=== PATIENT | male | born 1960 | race Caucasian/White ===

== ENCOUNTER 2023-07-29 08:59 | Outpatient (OUT) | payer OTHER, SELFPAY ==
--- NOTE | 2023-07-29 09:06 | ECG_ITS ---
[facility] Test Date: 2023-07-29 Pat Name: CORTNEY MORTON Department: Room: - Gender: Male [employer]: : 1960 Requested By: MOON HUNTER Order Number: [id number] Reading MD: LEAH WHITE Measurements Intervals [place] Rate: 60 P: 49 TX: 191 QRS: 50 QRSD: 104 T: 37 QT: 426 QTc: 429 Interpretive Statements SINUS RHYTHM Compared to ECG 09/05/2021 17:17:05 No significant changes Electronically Signed On 07-30-2023 6:41:11 EST by LEAH WHITE
--- NOTE | 2023-07-29 10:05 | XR_ITS ---
The [address] [address] Patient Name: CORTNEY MORTON MRN: [id number] date: 1960 Sex: M Assigned Patient Location: [facility] Current Patient Location: [facility] Accession/Order Number: [id number] Exam Date: 07/29/2023 10:00 Report Date: 07/29/2023 10:17 At the request of: MOON HUNTER Procedure: XR chest 2V EXAM: XR chest 2V HISTORY: Preop exam COMPARISON: None. TECHNIQUE: PA and lateral views of the chest. FINDINGS: The cardiomediastinal silhouette is normal. No focal consolidation is identified. There is no pneumothorax. No pleural effusion is noted. The osseous structures are intact. XR/XR chest 2V IMPRESSION: No acute cardiopulmonary process. Electronically authenticated by: DARWIN MONIQUE Date: 07/29/2023 10:17
[2023-07-29 10:40] LABS: INR 1.14; Partial Thromboplastin Time 28.9 sec (22.3-36.2)
[2023-07-29 10:50] LABS: Basophils Percent Auto 0.6 % (0.2-2.0); Eosinophils Percent Auto 16.3 % (0.9-7.0); Hematocrit 46.6 % (42.0-54.0); Hemoglobin 15.1 g/dL (14.0-18.0); Immature Granulocytes Abs Auto 0.01 10^3/uL (0.00-0.03); Immature Granulocytes Pct Auto 0.2 % (0.0-0.5); Lymphocytes Absolute Auto 1.3 10^3/uL (1.2-3.8); Lymphocytes Percent Auto 20.5 % (20.5-60.0); Mean Corpuscular HGB Conc 32.4 g/dL (29.9-35.2); Mean Corpuscular Hemoglobin 29.4 pg (25.9-34.0); Mean Corpuscular Volume 90.7 fL (80.0-94.0); Mean Platelet Volume 10.7 fL (9.5-13.5); Monocytes Absolute Auto 0.5 10^3/uL (0.3-0.8); Monocytes Percent Auto 8.2 % (1.7-12.0); Neutrophils Absolute Auto 3.4 10^3/uL (1.4-6.5); Neutrophils Percent Auto 54.2 % (43.0-75.0); Platelet Count 191 10^3/uL (150-450); Red Blood Count 5.14 10^6/uL (4.70-6.10); Red Cell Distribution Width 12.9 % (11.0-15.0); White Blood Count 6.2 10^3/uL (4.0-11.0)
[2023-07-29 11:37] LABS: Alanine Aminotransferase 25 U/L (16-63); Albumin Globulin Ratio 1.3; Albumin Level 3.4 g/dL (3.4-5.0); Alkaline Phosphatase 46 U/L (46-116); Anion Gap 9.2; Aspartate Amino Transferase 23 U/L (15-37); BUN Creatinine Ratio 23.2; Bilirubin Total 0.8 mg/dL (0.2-1.0); Calcium 8.8 mg/dL (8.5-10.1); Carbon Dioxide 30.5 mmol/L (21.0-32.0); Chloride 106 mmol/L (98-107); Estimated GFR (African America >60 (>=60); Estimated GFR (Non-African Ame >60 (>=60); Globulin 2.6 g/dL; Glucose 111 mg/dL (74-106); Potassium 3.7 mmol/L (3.5-5.1); Sodium 142 mmol/L (136-145)
== END 2023-07-29 09:00 | disposition home or self-care (01) ==
LOC: PST 09:02
PROVIDERS: PCP Internal Medicine; Visit Provider Surgery
DX: Z01.810 Encounter for preprocedural cardiovascular examination (principal); Z01.812 Encounter for preprocedural laboratory examination; K40.90 Unilateral inguinal hernia, without obstruction or gangrene, not specified as recurrent
CPT/HCPCS: 36415; 71046; 80053; 85025; 85610; 85730; 93005

== ENCOUNTER 2023-08-12 07:56 | Day surgery (SDC) | payer OTHER, SELFPAY ==
[2023-07-29 09:32] VITALS: BP 116/72; PULSE 64; RESP 14; TEMP 36.2; O2SAT 98; BMI 25.3
[2023-08-12] VITALS (9 sets, daily range): BP systolic 108–140; BP diastolic 64–81; PULSE 56–69; RESP 13–17; TEMP 35.9–36.6; O2SAT 94–97; BMI 27.0
--- NOTE | 2023-08-12 | OP_ITS ---
OPERATION DATE: 08/12/2023 PREOPERATIVE DIAGNOSIS: Left inguinal hernia. POSTOPERATIVE DIAGNOSIS: Indirect left inguinal hernia and cord lipoma. PROCEDURE: Left inguinal herniorrhaphy with a Bard 5 x 10 cm mesh insertion. SURGEON: Rico Casillas M.D. ANESTHESIA: General with laryngeal mask airway as well as left sided TAP block per Dr. Da Silva. ESTIMATED BLOOD LOSS: Less than 10 mL. INDICATIONS AND CONSENT: Patient is a 63-year-old male with history of enlarging, reducible, symptomatic left inguinal hernia. Indications, risks, benefits, alternatives of proceeding with herniorrhaphy were explained extensively to the patient, including the risks of bleeding, infection, nerve injury, testicular injury, recurrent hernia, blood clot, pulmonary embolus, heart attack, anesthetic complications, need for further surgery or mesh removal. All of his questions were answered. Informed consent was obtained. PROCEDURE: Patient brought to the operating room, placed in the supine position. General anesthesia was induced. A left sided TAP block was performed by Dr. Da Silva. Patient was prepped and draped in the usual sterile fashion. A left groin incision was made in the area of the skin crease and carried down through subcutaneous tissue using sharp dissection. Jorge?s fascia was divided. The external oblique was opened along the direction of its fibers, down through the external inguinal ring. Cord structures were mobilized and retracted with a Nice drain. There was noted to be a large cord lipoma that was freed up from the cord structures as well as an indirect sac that was scarred. This was freed up as well, all the way up to the internal ring. The vas deferens was , all the way up to the internal ring. The high ligation of the cord lipoma was obtained, and the base was stitched with a 3-0 Vicryl suture. High ligation of the hernia sac was performed as well and stitched as well with a 3-0 Vicryl suture. These were excised and sent off to pathology. The wound was irrigated. There was good hemostasis. There was mild weakness in the floor but no direct hernia. A 5 x 10 cm Bard mesh was trimmed and a keyhole was created. It was then placed in the floor of the inguinal canal. The arms were placed around the cord structures. It was then secured circumferentially using interrupted 3-0 Vicryl sutures. The wound was irrigated with antibiotic saline. There was good hemostasis. Care was taken to avoid undo tension on the cord structures. The external oblique was then closed with a running 3-0 Vicryl suture. Jorge?s fascia was re-approximated with interrupted 3-0 Monocryl suture. The skin was then closed with a running 4-0 subcuticular Monocryl suture and skin glue. Sterile pressure dressing was applied. Sponge and needle counts were correct x2 per nursing personnel. Patient tolerated procedure well, was sent to recovery room in good condition. CC: Aidan Boswell
--- OUTSIDE RECORDS SUMMARY | 2023-08-12 08:00 | XMS_ITS | CCD ---
Author Name Unknown Address [address] [place] [address] Organization [facility] Care Team Providers Care Drone Operator Name Role Phone ABBAS, JIHAD T Unavailable Unavailable ABBAS, JIHAD T Unavailable Unavailable SELF, REFERRED Unavailable Unavailable SELF, REFERRED Unavailable Unavailable LA Unavailable Unavailable ABBAS, JIHAD T Unavailable Unavailable LA Unavailable Unavailable ARTURO ELLIS Unavailable Unavailable Ta Haddad Unavailable Unavailable Unavailable BOO, DR PASTOR Primary Care Unavailable SINDHU JANG Admitting Unavailable SUHAIL, SINDHU Attending Unavailable SINDHU JANG Consulting Unavailable REQUEST, DR ARTEAGA LISTED Admitting Unavaila ble VALONE, DR PASTOR Primary Care Unavailable REQUEST, DR ARTEAGA LISTED Attending Unavaila ble REQUEST, DR ARTEAGA LISTED Consulting Unavaila ble VALONE, DR PASTOR Consulting Unavailable VALONE, DR PASTOR Primary Care Unavailable VALONE, DR PASTOR Admitting Unavailable VALONE, DR PASTOR Attending Unavailable VALONE, DR PASTOR Primary Care Unavailable ZIEBER, DR ALEXY Berger Consulting Unavailable SINDHU JANG Admitting Unavailable SINDHU JANG Attending Unavailable SINDHU JANG Consulting Unavailable VALONE, DR PASTOR Primary Care Unavailable ROE ARROYO Admitting Unavailable ROE ARROYO Attending Unavailable ROE ARROYO Consulting Unavailable HAYES, DR DREAD Valdez Attending Unavailmaureen LOZADA, DR DREAD Valdez Consulting Unavailabl e BOO, DR PASTOR Primary Care Unavailable HAYES, DR DREAD Valdez Admitting UnavailALIYA Diaz Consulting Unavailable ROBERT, DR TUCKER Admitting Unavailable VALONE, DR PASTOR Primary Care Unavailable ROBERT, DR TUCKER Attending Unavailable BRYAN VARGAS Consulting Unavailable ADRIAN NUNES Attending Unavailable Unavailable Primary Care Provider UnavailAmara Hilario Consulting Unavailable Ta Haddad Primary Care Unavailable Roby Reinoso Attending Unavailable Roby Reinoso Admitting Unavailable Fabian Lozada Consulting Unavailable Melody Collier Consulting Unavailable Dread Perez Consulting Unavail able Brennon Geller Consulting Unavailable Ta Laird Consulting Unavailab Shruthi Ortez Consulting Unavailable Jes Tirado Consulting Unavailable Jaylon Hernandez Consulting Unavailab John Salmeron Consulting Unavailable Hayes, Dr. Dread To Referring Andreeva heather Lozada, Dr. Dread To Attending Andreeva iljessica Haddad Jr, Dr. Ta Topete Primary Care Andree rupeshilaDread Yepez Referring Unapiero Lozada, Dread Costa Attending Jocelin Haddad Jr, Dr. Ta Topete Primary Care Andree staci Galloway, MsMichael Lyn Referring Jocelin Galloway, MsMichael Lyn Attending Jocelin Haddad Jr, Dr. Ta Topete Primary Care Andree Edilma Linares Unavailable Rashmi Whitaker Unavailable TA HADDAD JR Primary Care Physician Rico HUNTER Attending Unavailable Ta Haddad DO Primary Care Provider [phone] DREAD LOZADA Attending Unavailable TA HADDAD Primary Care Unavailable Allergies Allergy Classification Reported Allergen(s) Allergy Type Date of Onset Reaction(s) Facility (1 source) No Known Medication Allergies; Translations: [No Known Medication Allergies] Propensity to adverse reactions (disorder) [facility] Repository Medications Current Medications Medication Drug Class(es) Dates Sig (Normalized) Sig (Original) amoxicillin 875 mg / clavulanate 125 mg oral tablet (1 source) Penicillin-class Antibacterial Start: 12-10-2022 take 1 tablet by mouth every twelve hours Amoxicillin-Pot Clavulanate 875-125 MG 1 tablet Orally every 12 hrs for 10 day(s) Nov, Active aspirin 81 mg delayed release oral tablet (8 sources) Platelet Aggregation Inhibitor, Nonsteroidal Anti-inflammatory Drug Start: 06-18-2023 take 1 tablet by mouth once daily aspirin 81 mg Oral EC Tab 81 mg = 1 tab(s), Oral, Daily, Refills(s) 0 Start Date: 06/18/23 Status: Ordered cholecalciferol 0.125 mg oral tablet (5 sources) Vitamin D cholecalciferol (Vitamin D-3) 5,000 Units tablet Take by mouth once daily. 0 Active take 2 capsules by mouth once da zoila Vitamin D3 50 MCG (1999 UT) Oral Capsule TAKE 2 CAPSULE Daily Quantity: 0 Refills: 0 Ordered: 18-Oct-2021 DO Active ferrous sulfate 325 mg oral tablet (5 sources) take 1 tablet by mouth once daily ferrous sulfate 325 (65 Fe) MG tablet Take 1 tablet by mouth once daily. 0 Active magnesium oxide 400 mg oral tablet (1 source) magnesium oxide (Mag-Ox) 400 mg tablet 1 tablet (400 mg) once daily. 0 Active metoprolol tartrate 25 mg oral tablet (8 sources) beta-Adrenergic Alison Start: 10-18-2021 take 0.5 tablet by mouth twice daily metoprolol tartrate (Lopressor) 25 mg tablet Take 0.5 tablets (12.5 mg) by mouth 2 times a day. 0 10/18/2021 Active Start: 10-18-2021 take 1 tablet by renetta twice daily Metoprolol Tartrate 25 MG Oral Tablet TAKE 1 TABLET TWICE DAILY. Quantity: 60 Refills: 6 Ordered: 18-Oct-2021 Riki Galloway APRN-PIPELINES SUPERINTENDENTShruthi Start : 18-Oct-2021 Active Start: 10-17-2021 Metoprolol tar trate 25 mg Tab 12.5 mg = 0.5 tab(s), Oral, BID, Refills(s) 0 Start Date: 10/17/21 Status: Ordered Multivitamin preparation (1 source) Start: 06-18-2023 take 1 tablet by mouth once daily multivitamin 1 tab(s), Oral, Daily, Refill(s) 0 Start Date: 06/18/23 Status: Ordered omega 8-tjy-kky-fish oil 300 mg-100 mg- 150 mg-1,000 mg capsule (1 source) omega 1-gyv-uxh-fish oil 300 mg-100 mg- 150 mg-1,000 mg capsule Take by mouth once daily. 0 Active predniSONE 20 mg oral tablet (1 source) Start: 12-10-2022 take 1 tablet by mouth every twelve hours predniSONE 20 MG 1 tablet Orally bid for 5 day(s) Nov, Active Ramipril (8 sources) Angiotensin Converting Enzyme Inhibitor Start: 07-14-2023 ramipril Refills(s) 0 Start Date: 07/14/23 Status: Ordered take 1 capsule by mouth once frederic ly ramipril (Altace) 2.5 mg capsule Take 1 capsule (2.5 mg) by mouth once daily. 0 Active rosuvastatin calcium 5 mg oral tablet (8 sources) HMG-CoA Reductase Inhibitor Start: 06-18-2023 take 1 tablet by mouth once daily at bedtime rosuvastatin 5 mg Tab 5 mg = 1 tab(s), Oral, Once a day (at bedtime), Refills(s) 0 Start Date: 06/18/23 Status: Ordered ubidecarenone 100 mg / vitamin e 5 unt oral capsule (3 sources) take 3 capsules by mouth once daily coenzyme P87-[id number] E 100-5 mg-unit capsule Take 3 capsules by mouth once daily. 0 Active Completed/Discontinued Medications Medication Drug Class(es) Dates Sig (Normalized) Sig (Original) ascorbic acid 1000 mg oral tablet (2 sources) Vitamin C take 1 tablet by mouth twice daily Vitamin C 1000 MG Oral Tablet Take 1 tablet twice daily Quantity: 0 Refills: 0 Ordered: 18-Aug-2022 DO Active cefTRIAXone (2 sources) Cephalosporin Antibacterial Start: 02-13-2019 Rocephin 500 mg Jan, 1 g cetirizine hydrochloride 5 mg oral tablet (4 sources) Histamine-1 Receptor Antagonist End: 08-05-2023 take 1 tablet by mouth once daily cetirizine (ZyrTEC) 5 mg tablet Take 1 tablet (5 mg) by mouth once daily. 0 08/05/2023 Discontinued (Therapy completed) chondroitin sulfates 200 mg / glucosamine hydrochloride 250 mg oral tablet (2 sources) Glucosamine Chondroitin TABS Take 1 tablet twice daily Quantity: 0 Refills: 0 Ordered: 18-Aug-2022 DO Active doxycycline monohydrate 100 mg oral capsule (2 sources) Tetracycline-class Drug Start: 02-13-2019 take 1 capsule by mouth every twelve hours Doxycycline Monohydrate 100 MG 1 capsule Orally every 12 hrs for 7 days Jan, Not-Taking Fish Oil 1200 MG Oral Capsule (2 sources) take 1 capsule by mouth once daily Fish Oil 1200 MG Oral Capsule TAKE 1 CAPSULE Daily Quantity: 0 Refills: 0 Ordered: 18-Aug-2022 DO Active levoFLOXacin 750 mg oral tablet (2 sources) Quinolone Antimicrobial Start: 02-13-2019 take 1 tablet by mouth once daily Levaquin 750 MG 1 tablet Orally Once a day for 7 days Jan, Not-Taking Magnesium (2 sources) take 1 tablet by mouth once daily Magnesium 400 MG Oral Tablet Take 1 tablet daily Quantity: 90 Refills: 3 Ordered: 18-Aug-2022 DO Active nitroglycerin 0.4 mg sublingual tablet (6 sources) Nitrate Vasodilator Start: 06-18-2023 nitroglycerin (N itrostat) 0.[address] 1 tablet (0.4 mg) under the tongue every 5 minutes if needed. 0 Active [place]-3 300 MG CAPS (2 sources) [place]-3 300 MG C APS TAKE 1 CAPSULE 4 TIMES DAILY Quantity: 0 Refills: 0 Ordered: 18-Oct-2021 DO Active prasugrel 10 mg oral tablet (4 sources) P2Y12 Platelet Inhibitor take 1 tablet by mouth once daily Prasugrel HCl 10 MG TAKE ONE TABLET BY MOUTH EVERY DAY Oral for 30 Days Not-Taking triamcinolone acetonide 40 mg/ml injectable suspension (1 source) Corticosteroid Start: 12-23-19 Kenalog-40 Nov, 60 mg turmeric extract 500 mg oral capsule (2 sources) take 1 tablet by mouth once daily Turmeric 500 MG Oral Tablet Take 1 tablet daily Quantity: 0 Refills: 0 Ordered: 18-Aug-2022 DO Active ubidecarenone 100 mg oral capsule (2 sources) take 1 capsule by mouth once daily CoQ10 100 MG Oral Capsule TAKE 1 CAPSULE Daily Quantity: 0 Refills: 0 Ordered: 18-Oct-2021 DO Active Vitamin B Complex CAPS (2 sources) Vitamin B Comple x CAPS TAKE 1 CAPSULE Daily Quantity: 0 Refills: 0 Ordered: 18-Aug-2022 DO Active Vitamin E TABS (2 sources) Vitamin E TABS T montez 1 tablet daily Quantity: 0 Refills: 0 Ordered: 18-Aug-2022 DO Active Problems Active Problems Problem Classification Problem Date Documented Da te Episodic/Chronic Abdominal hernia (2 sources) Inguinal hernia; Translations: [Unilateral inguinal hernia, without obstruction or gangrene, not specified as recurrent] Onset: 07-14-2023 Episodic Acute myocardial infarction (4 sources) Myocardial infarction; Translations: [Subendocardial infarction, initial episode of care] 06-18-2023 Chronic Allergic reactions (1 source) Allergic contact dermatitis due to plants, except food Episodic Cardiac dysrhythmias (9 sources) Paroxysmal atrial fibrillation; Translations: [Atrial fibrillation] Onset: 04-20-2023 06-18-2023 Chronic Coronary atherosclerosis and other heart disease (15 sources) Coronary arteriosclerosis; Translations: [Coronary atherosclerosis of unspecified type of vessel, gakona or graft] Onset: 09-26-2021 Chronic Disorders of lipid metabolism (9 sources) Mixed hyperlipidemia; Translations: [Mixed hyperlipidemia] Onset: 04-20-2023 06-18-2023 Chronic Other circulatory disease (4 sources) Cardiac function test normal; Translations: [Normal cardiac ejection fraction] Episodic Other nutritional; endocrine; and metabolic disorders (5 sources) Overweight in adulthood with body mass index of 25 or more but less than 30; Translations: [Overweight] 07-14-2023 Episodic Other nutritional; endocrine; and metabolic disorders (1 source) Overweight 07-14-2023 Episodic Other upper respiratory disease (1 source) Allergic rhinitis 06-18-2023 Chronic Other upper respiratory infections (1 source) Acute sinusitis, unspecified Episodic Phlebitis; thrombophlebitis and thromboembolism (4 sources) Personal history of other venous thrombosis and embolism; Translations: [Acute embolism and thrombosis of unspecified deep veins of left distal lower extremity] Onset: 03-18-2021 06-18-2023 Episodic Residual codes; unclassified (1 source) Treatment not available; Translations: [Procedure and treatment not carried out for other reasons] Episodic Residual codes; unclassified (2 sources) Never smoked tobacco; Translations: [Other specified health status] Onset: 08-05-2023 08-05-2023 Episodic Residual codes; unclassified (2 sources) Other specified health status; Translations: [Other specified health status] Onset: 08-05-2023 Episodic Unclassified (2 sources) Unknown / UNK(Unknown) Onset: 09-29-2016 Unclassified (1 source) I21.4 - Non-ST elevation (NSTEMI) myocardial infarction; Translations: [I21.4 - Non-ST elevation (NSTEMI) myocardial infarction] Onset: 09-09-2021 Past or Other Problems Problem Classification Problem Date Documented Da te Episodic/Chronic Coronary atherosclerosis and other heart disease (1 source) Presence of coronary angioplasty implant and graft; Translations: [PRESENCE COR ANGPLSTY IMPLANT AND GRAFT] Onset: 10-25-2021 Episodic Immunizations and screening for infectious disease (4 sources) Encounter for immunization; Translations: [ENCOUNTER FOR IMMUNIZATION] Onset: 06-18-2021 Episodic Nonspecific chest pain (4 sources) Chest pain, unspecified; Translations: [CHEST PAIN UNSPECIFIED] Onset: 09-05-2021 Episodic Other aftercare (1 source) Other computer terminal operator (current) drug therapy; Translations: [OTH JAIL CURRENT DRUG THERAPY] Onset: 09-06-2021 Episodic Other gastrointestinal disorders (4 sources) Pneumatosis cystoides intestinalis; Translations: [Other specified disorders of intestine] Onset: 04-20-2023 04-20-2023 Episodic Other skin disorders (4 sources) Localized swelling, mass and lump, left lower limb; Translations: [LOC SWELL MASS LUMP LT LOWER LIMB] Onset: 03-14-2021 Episodic Residual codes; unclassified (4 sources) Edema, unspecified; Translations: [EDEMA UNSPECIFIED] Onset: 03-15-2021 Episodic Unclassified (4 sources) Never smoked tobacco; Translations: [Never a smoker] Unclassified (1 source) Onset: 08-05-2023 08-05-2023 Varicose veins of lower extremity (4 sources) Varicose veins of left lower extremity with other complications; Translations: [VARICOSE VEINS OF LEFT LOWER EXTREMITIES W OTH COMPLICATIONS] Onset: 09-29-2016 Episodic Results Test Name Value Interpretation Reference Range Facility ECG 12 [place] 08-05-2023 Normal sinus rhythm, normal ECG [facility] Work Phone: [facility] Work Phone: ECG 12-Leadon 08-04-2023 ECG 12-Lead [id number]#1.0 0TIFF Normal [facility] Lab Reportson 08-04-2023 Lab Reports [id number]#1.0 0TIFF Normal [facility] RAD - MISCon 08-04-2023 RAD - MISC [id number]#1.0 0TIFF Normal [facility] Lab Reportson 07-30-2023 Lab Reports [id number]#1.0 0TIFF Normal [facility] Insurance Correspondenceon 0 07-21-2023 Insurance Correspondence [id number]. 00TIFF [facility] Consent for Procedure/Surger yon 07-15-2023 Consent for Procedure/Surgery [id number]#1.00 TIFF [facility] Facesheeton 07-15-2023 Facesheet [id number]#1.00 TIFF [facility] Ambulatory Visit Summaryon 0 07-14-2023 Ambulatory Visit Summary SELENEJUDITH SUAREZ Opal :1960 Visit Date:07/14/2023 Ambulatory Visit Instructions Your Care Team Attending Physician - DALE AWAN, Rico Berger Primary Care Physician - TA HADDAD JR, DO This Is Your Medications List Contact prescribing physician if questions or concerns aspirin (aspirin 81 mg Oral EC Tab) metoprolol (Metoprolol tartrate 25 mg Tab) multivitamin nitroglycerin (NitroStat 0.4 mg Tab) ramipril rosuvastatin (rosuvastatin 5 mg Tab) Procedures Performed Angioplasty of blood vessel, Cardiac catheterization, Catheter ablation of arrhythmogenic focus, Coronary artery stent, Myringoplasty, Repair of right inguinal hernia, Tonsillectomy. Discharge Vitals Heart Rate (Peripheral) 72 Respiratory Rate 16 Blood Pressure 128/74 Height 177.8 cm Height 70 in Weight 87 kg Weight 191.4 lb BMI 27.52 Medications What How Much When Instructions Unchanged aspirin (aspirin 81 mg Oral EC Tab) 1 Tablets By Mouth Every day Contact prescribing physician if questions or concerns Unchanged metoprolol (Metoprolol tartrate 25 mg Tab) 0.5 Tablets By Mouth 2 times a day Contact prescribing physician if questions or concerns Unchanged multivitamin 1 Tablets By Mouth Every day Contact prescribing physician if questions or concerns Unchanged nitroglycerin (NitroStat 0.4 mg Tab) 0.4 Unknown, sublingual, 0 Refill(s), Place 1 tablet (0.4 mg) under the tongue every 5 minutes if needed. Contact prescribing physician if questions or concerns Unchanged ramipril Contact prescribing physician if questions or concerns Unchanged rosuvastatin (rosuvastatin 5 mg Tab) 1 Tablets By Mouth Once a day (at bedtime) Contact prescribing physician if questions or concerns Medications and Immunizations Administered Not Given influenza virus vaccine, inactivated, Patient Refuses Allergies No Known Allergies No Known Medication Allergies Problems Ongoing - Any problem that you are currently receiving treatment for. Allergic rhinitis BMI 27.0-27.9,adult Coronary arteriosclerosis History of DVT (deep vein thrombosis) Mixed hyperlipidemia NSTEMI (non-ST elevated myocardial infarction) Overweight Paroxysmal atrial fibrillation Patient Survey You may receive a survey via text or e-mail asking about your office visit. Please share your experience with us by completing your survey. We appreciate your feedback and thank you for choosing us for your care. [facility] Physician Referralon 023 Physician Referral [id number] 0TIFF [facility] Physician Referralon 023 Physician Referral [id number] 00 [id number]#[id number] 0TIFF [facility] Office Visit (Cardiology)on 08-18-2022 Follow-up visit Diagnoses/Problems Assessed 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 (414.01) (I25.10) Mixed hyperlipidemia (272.2) (E78.2) NSTEMI, initial episode of care (410.71) (I21.4) Paroxysmal atrial fibrillation (427.31) (I48.0) Overweight with body mass index (BMI) of 28 to 28.9 in adult (278.02,V85.24) (E66.3,Z68.28) 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) Never a smoker Orders 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 Renew: Aspirin EC 81 MG Oral Tablet Delayed Release; TAKE 1 TABLET Daily Mixed hyperlipidemia Renew: Rosuvastatin Calcium 5 MG Oral Tablet; TAKE 1 TABLET Bedtime Lipid Panel; Status:Active - Retrospective Authorization; Requested for:[id number]; Overweight with body mass index (BMI) of 28 to 28.9 in adult Healthy Weight Tips; Status:Complete - Retrospective Authorization; Done: [id number] Some eating tips that can help you lose weight.; Status:Complete - Retrospective Authorization; Done: [id number] SocHx: Never a smoker Tobacco Use Screening; Status:Complete; Done: [id number] Unlinked Stop: Prasugrel HCl - 10 MG Oral Tablet Patient Instructions Please bring all medicines, vitamins, and herbal supplements with you when you come to the office. Prescriptions will not be filled unless you are compliant with your follow up appointments or have a follow up appointment scheduled as per instruction of your physician. Refills should be requested at the time of your visit. Follow up in 1 year Chief Complaint JACE MORTON is being seen for a 6 month follow-up of. 62-year-old healthy and active gentleman who still cycles approximately 60 miles a week, follows up for routine office visit and is stable and asymptomatic and doing well and denies nitrate usage or hospitalizations or symptoms. He sustained non-ST elevation LA in August 2021 with two-vessel intervention of the mid LAD and the PLV branch of the right coronary with 2 drug-eluting stents with normal left ventricular function. He remains on DAPT therapy and metoprolol and low-dose statin as tolerable. He is otherwise doing very well he can discontinue prasugrel at the beginning of August 2022, 1 year from his anniversary of revascularization, continue with single agent antiplatelet therapy, continue with metoprolol, ramipril and statin and will follow-up again in 1 year Surgical History Problems History of Angioplasty History of Cardiac catheterization with stent placement History of Catheter ablation Denied: History of Colonoscopy History of Hand surgery History of Hernia repair History of Myringoplasty History of Tonsillectomy Current Meds Medication NameInstruction Aspirin EC 81 MG Oral Tablet Delayed ReleaseTAKE 1 TABLET Daily CoQ10 100 MG Oral CapsuleTAKE 3 CAPSULE Daily Ferrous Sulfate 325 (65 Fe) MG Oral TabletTake 1 tablet daily Fish Oil 1200 MG Oral CapsuleTAKE 1 CAPSULE Daily Glucosamine Chondroitin TABSTake 1 tablet twice daily Magnesium 400 MG Oral TabletTake 1 tablet daily Metoprolol Tartrate 25 MG Oral TabletTAKE 0.5 TABLET Twice daily Nitrostat 0.4 MG Sublingual Tablet SublingualDISSOLVE 1 TABLET UNDER THE TONGUE NEEDED FOR CHEST PAIN. Prasugrel HCl - 10 MG Oral TabletTAKE 1 TABLET DAILY. Ramipril 2.5 MG Oral CapsuleTAKE 1 CAPSULE Daily Rosuvastatin Calcium 5 MG Oral TabletTAKE 1 TABLET Bedtime Turmeric 500 MG Oral TabletTake 1 tablet daily Vitamin B Complex CAPSTAKE 1 CAPSULE Daily Vitamin C 1000 MG Oral TabletTake 1 tablet twice daily Vitamin D3 125 MCG (5000 UT) Oral Tablet1 daily Vitamin E TABSTake 1 tablet daily Zyrtec 5 MG TABSTAKE 1 TABLET DAILY. Allergies Medication No Known Drug Allergies Recorded By: Carisa Armendariz; 10/18/2021 8:23:06 AM Social History Problems Caffeine use (V49.89) (Z78.9) a little green tea Never a smoker No alcohol use No illicit drug use Review of Systems Constitutional: not feeling tired. Cardiovascular: no intermittent leg claudication and as noted in HPI. Respiratory: no cough and no shortness of breath. Gastrointestinal: no change in bowel habits and no blood in stools. Integumentary: no skin rashes. Neurological: no seizures and no frequent falls. All other systems have been reviewed and are negative for complaint. Vitals Vital Signs Recorded: [id number] 02:30PM Heart Rate72, L Radial [id number], LUE, Sitting [id number], LUE, Sitting Height5 ft 10 in Wwbmgd598 lb BMI Lrgphxwsla40.27 kg/m2 BSA Calculated2.07 Tobacco Useb) No PHQ-2 #1. Over the last 2 weeks have you felt down, depressed or hopeless? (If yes, answer PHQ-9 below)No PHQ-2 #2. Over the last 2 weeks have you felt little interest or pleasure in doing things? (If yes, answer PHQ-9 below)No Signatures Electronically signed by : Dread Lozada DO; Aug 18 2022 5:35PM EST (Author) Normal [facility] CBC AUTO DIFFon 02-22-2022 BASO # 0.0 103/ul Normal 0.0-0.1 [facility] Comment on above: Performed By: #### H STROPN, BNP, CMP #### [facility] [address] [address] [address] Jaycee Mejias Basophils/100 WBC (Bld) 0.6 % Normal 0.2-2.0 [facility] Comment on above: Performed By: #### H STROPN, BNP, CMP #### [facility] [address] [place] [address] Dr. Jayece Mejias EO # 0.8 103/ul Critically high 0.0-0.7 [facility] Comment on above: Performed By: #### H STROPN, BNP, CMP #### [facility] [address] [place] [address] Dr. Jaycee Mejias Eosinophils/100 WBC (Bld) 16.1 % Critically high 0.9-7.0 [facility] Comment on above: Performed By: #### H STROPN, BNP, CMP #### [facility] [address] [place] [address] Dr. Jaycee Mejias Erythrocyte distribution width (RBC) [Ratio] 12.6 % Normal 11.0-15.0 [facility] Comment on above: Performed By: #### H STROPN, BNP, CMP #### [facility] [address] [place] [address] Dr. Jaycee Mejias Hematocrit (Bld) [Volume fraction] 45.3 % Normal 42.0-54.0 [facility] Comment on above: Performed By: #### H STROPN, BNP, CMP #### [facility] [address] [place] [address] Dr. Jaycee Mejias Hemoglobin (Bld) [Mass/Vol] 15.2 g/dL Normal 14.0-18.0 [facility] Comment on above: Performed By: #### H STROPN, BNP, CMP #### [facility] [address] [place] [address] Dr. Jaycee Mejias IG # 0.01 10e3/ul Normal 0.00-0.03 [facility] Comment on above: Performed By: #### H STROPN, BNP, CMP #### [facility] [address] [place] [address] Dr. Jaycee Mejias IG % 0.2 % Normal 0.0-0.5 [facility] Comment on above: Performed By: #### H STROPN, BNP, CMP #### [facility] [address] [place] [address] Dr. Jaycee Mejias LYMPH # 1.4 103/ul Normal 1.2-3.8 [facility] Comment on above: Performed By: #### H STROPN, BNP, CMP #### [facility] [facility] [address] [place] [address] Dr. Jaycee Mejias Lymphocytes/100 WBC (Bld) 27.4 % Normal 20.5-60.0 [facility] Comment on above: Performed By: #### H STROPN, BNP, CMP #### [facility] [address] [place] [address] Dr. Jaycee Mejias MCH (RBC) [Entitic mass] 30.8 pg Normal 25.9-34.0 [facility] Comment on above: Performed By: #### H STROPN, BNP, CMP #### [facility] [address] [place] [address] Dr. Jaycee Mejias MCHC (RBC) [Mass/Vol] 33.6 g/dL Normal 29.9-35.2 [facility] Comment on above: Performed By: #### H STROPN, BNP, CMP #### [facility] [address] [place] [address] Dr. Jaycee Mejias MCV (RBC) [Entitic vol] 91.7 fL Normal 80.0-94.0 [facility] Comment on above: Performed By: #### H STROPN, BNP, CMP #### [facility] [address] [place] [address] Dr. Jaycee Mejias MONO # 0.6 103/ul Normal 0.3-0.8 [facility] Comment on above: Performed By: #### H STROPN, BNP, CMP #### [facility] [address] [place] [address] Dr. Jaycee Mejias Monocytes/100 WBC (Bld) 10.9 % Normal 1.7-12.0 [facility] Comment on above: Performed By: #### H STROPN, BNP, CMP #### [facility] [address] [place] [address] Dr. Jaycee Mejias NEUT # 2.3 103/ul Normal 1.4-6.5 [facility] Comment on above: Performed By: #### H STROPN, BNP, CMP #### [facility] [address] [address] [address] Jaycee Mejias Neutrophils/100 WBC (Bld) 44.8 % Normal 43.0-75.0 [facility] Comment on above: Performed By: #### H STROPN, BNP, CMP #### [facility] [address] [address] [address] Jaycee Mejias Platelet mean volume (Bld) [Entitic vol] 9.8 fL Normal 9.5-13.5 [facility] Comment on above: Performed By: #### H STROPN, BNP, CMP #### [facility] [address] [place] [address] Dr. Jaycee Mejias PLT 160 103/ul Normal 150-450 [facility] Comment on above: Performed By: #### H STROPN, BNP, CMP #### [facility] [address] [place] [address] Dr. Jaycee Mejias RBC 4.94 106/ul Normal 4.70-6.10 [facility] Comment on above: Performed By: #### H STROPN, BNP, CMP #### [facility] [address] [place] [address] Dr. Jaycee Mejias WBC 5.0 103/ul Normal 4.0-11.0 [facility] Comment on above: Performed By: #### H STROPN, BNP, CMP #### [facility] [address] [place] [address] Dr. Jaycee Mejias SHAKEEL- BMP WITH LIPIDon 2021 Anion gap [Moles/Vol] 7.8 mmol/L Normal [facility] Comment on above: Performed By: #### H STROPN, BNP, CMP #### [facility] [address] [place] [address] Dr. Jaycee Mejias Calcium [Mass/Vol] 9.1 mg/dL Normal 8.5-10.1 [facility] Comment on above: Performed By: #### H STROPN, BNP, CMP #### [facility] [address] [address] [address] Jaycee Mejias Chloride [Moles/Vol] 104 mmol/L Normal 98-107 [facility] Comment on above: Performed By: #### H STROPN, BNP, CMP #### [facility] [address] [address] [address] Jaycee Mejias Cholesterol [Mass/Vol] 116 mg/dL Normal <=200 [facility] Comment on above: Performed By: #### H STROPN, BNP, CMP #### [facility] [address] [address] [address] Jaycee Mejias Cholesterol in HDL [Mass/Vol] 45 mg/dL Normal 40-60 [facility] Comment on above: Performed By: #### H STROPN, BNP, CMP #### [facility] [address] [address] [address] Jaycee Mejias Cholesterol in LDL [Mass/Vol] 60.6 mg/dL Normal [facility] Comment on above: Performed By: #### H STROPN, BNP, CMP #### [facility] [address] [address] [address] Jaycee Mejias CO2 [Moles/Vol] 32.1 mmol/L Critically high 21.0-32.0 [facility] Comment on above: Performed By: #### H STROPN, BNP, CMP #### [facility] [address] [address] [address] Jaycee Mejias Creatinine [Mass/Vol] 0.98 mg/dL Normal 0.70-1.30 [facility] Comment on above: Performed By: #### H STROPN, BNP, CMP #### [facility] [address] [address] [address] Jaycee Mejias EGFR-AF [place] >60 Normal >=60 [facility] Comment on above: Performed By: #### H STROPN, BNP, CMP #### [facility] [address] [address] [address] Jaycee Mejias EGFR-NON AF [place] >60 Normal >=60 [facility] Comment on above: Performed By: #### H STROPN, BNP, CMP #### [facility] [address] [address] [address] Jaycee Mejias Glucose [Mass/Vol] 88 mg/dL Normal 74-106 [facility] Comment on above: Performed By: #### H STROPN, BNP, CMP #### [facility] [address] [address] [address] Jaycee Mejias HDL NORMAL > or = 60 mg/dl - LO W CARDIOVASCULAR RISK <40 mg/dl - HIGH CARDIOVASCULAR RISK Normal [facility] Comment on above: Performed By: #### H STROPN, BNP, CMP #### [facility] [address] [address] [address] Jaycee Mejias LDL CALC NORMAL SEE BELOW Normal [facility] Comment on above: Result Comment: <100 mg/dl OPTIMAL 100 - 129 mg/dl NEAR OR ABOVE OPTIMAL 130 - 159 mg/dl BORDERLINE HIGH 160 - 189 mg/dl HIGH >190 mg/dl VERY HIGH Performed By: #### H STROPN, BNP, CMP #### [facility] [address] [address] [address] Jaycee Mejias Potassium [Moles/Vol] 3.9 mmol/L Normal 3.5-5.1 [facility] Comment on above: Performed By: #### H STROPN, BNP, CMP #### [facility] [address] [address] [address] Jaycee Mejias Sodium [Moles/Vol] 140 mmol/L Normal 136-145 [facility] Comment on above: Performed By: #### H STROPN, BNP, CMP #### [facility] [address] [address] [address] Jaycee Mejias Triglyceride [Mass/Vol] 52 mg/dL Normal <=150 [facility] Comment on above: Performed By: #### H STROPN, BNP, CMP #### [facility] [address] [address] [address] Jaycee Mejias Urea nitrogen [Mass/Vol] 19.0 mg/dL Critically high 7.0-18.0 [facility] Comment on above: Performed By: #### H STROPN, BNP, CMP #### [facility] [address] [address] [address] Jaycee Mejias Urea nitrogen/Creatinine [Mass ratio] 19.4 mg/mg Normal [facility] Comment on above: Performed By: #### H STROPN, BNP, CMP #### [facility] [address] [address] [address] Jaycee Mejias VLDL CALC 10.4 mg/dL Normal [facility] Comment on above: Performed By: #### H STROPN, BNP, CMP #### [facility] [address] [address] [address] Jaycee Mejias GLYCOHEMOGLOBIN A1Con 2021 ADA RECOMMENDATION SEE BELOW Normal [facility] Comment on above: Result Comment: ADA RECOMMENDED LIMIT 4.0 - 6.0 ADA THERAPEUTIC TARGET < 7.0 ACTION SUGGESTED > 7.0 Performed By: #### H STROPN, BNP, CMP #### [facility] [address] [address] [address] Jaycee Mejias Glucose [Mass/Vol] 105 mg/dL Normal [facility] Comment on above: Performed By: #### H STROPN, BNP, CMP #### [facility] [address] [address] [address] Jaycee Mejias HbA1c (Bld) [Mass fraction] 5.3 % Normal 4.5-6.2 [facility] Comment on above: Performed By: #### H STROPN, BNP, CMP #### [facility] [address] [address] [address] 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 Renew: Aspirin EC 81 MG Oral Tablet Delayed Release; TAKE 1 TABLET Daily 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, Mixed hyperlipidemia Lipid Panel; Status:Active - Retrospective Authorization; Requested for:[id number]; Mixed hyperlipidemia Renew: Rosuvastatin Calcium 5 MG Oral Tablet; TAKE 1 TABLET Bedtime Overweight with body mass index (BMI) of 26 to 26.9 in adult Healthy Weight Tips; Status:Complete - Retrospective Authorization; Done: [id number] Some eating tips that can help you lose weight.; Status:Complete - Retrospective Authorization; Done: [id number] SocHx: Never a smoker Tobacco Use Screening; Status:Complete; Done: [id number] Patient Instructions Please bring all medicines, vitamins, and herbal supplements with you when you come to the office. Prescriptions will not be filled unless you are compliant with your follow up appointments or have a follow up appointment scheduled as per instruction of your physician. Refills should be requested at the time of your visit. Follow up in 6 months Chief Complaint JACE MORTON is being seen for a 4 month follow-up of. 61-year-old gentleman returns for follow-up and doing very well he has no cardiovascular complaints. He continues riding bicycle 100 miles a week, he alternates this with weight lifting as well. 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 He is totally asymptomatic and amazingly healthy. He sustained a non-ST elevation LA with primary revascularization of the LAD and PLV branch of the RCA x2 stents performed by Dr. Hunt in August 2021, followed up with nurse practitioner in September and now myself he remains on appropriate guideline directed medical therapies with no untoward side effects and no recurrent hospitalizations We counseled him on etiology for his LA including elite cycling, family genetics. Recommendations, follow-up again in 6 months at which point we will consider discontinuation of prasugrel in September, possibly consider discontinuation of rammer Elizabeth given his normal LV function and current low blood pressure at that time Surgical History Problems History of Angioplasty History of Cardiac catheterization with stent placement History of Catheter ablation Denied: History of Colonoscopy History of Hand surgery History of Hernia repair History of Myringoplasty History of Tonsillectomy Current Meds Medication NameInstruction Aspirin EC 81 MG Oral Tablet Delayed ReleaseTAKE 1 TABLET Daily CoQ10 100 MG Oral CapsuleTAKE 1 CAPSULE Daily Ferrous Sulfate 325 (65 Fe) MG Oral TabletTake 1 tablet daily Metoprolol Tartrate 25 MG Oral TabletTAKE 1 TABLET TWICE DAILY. Nitrostat 0.4 MG Sublingual Tablet SublingualDISSOLVE 1 TABLET UNDER THE TONGUE NEEDED FOR CHEST PAIN. [place]-3 300 MG CAPSTAKE 1 CAPSULE 4 TIMES DAILY Prasugrel HCl - 10 MG Oral TabletTAKE 1 TABLET DAILY. Ramipril 2.5 MG Oral CapsuleTAKE 1 CAPSULE Daily Rosuvastatin Calcium 5 MG Oral TabletTAKE 1 TABLET Bedtime Vitamin D3 125 MCG (5000 UT) Oral Tablet1 daily Zyrtec 5 MG TABSTAKE 1 TABLET DAILY. Allergies Medication No Known Drug Allergies Recorded By: Carisa Armendariz; 10/18/2021 8:23:06 AM Social History Problems Caffeine use (V49.89) (Z78.9) a little green tea Never a smoker No alcohol use No illicit drug use Review of Systems Constitutional: not feeling tired. Cardiovascular: no intermittent leg claudication and as noted in HPI. Respiratory: no cough and no shortness of breath. Gastrointestinal: no change in bowel habits and no blood in stools. Integumentary: no skin rashes. Neurological: no seizures and no frequent falls. All other systems have been reviewed and are negative for complaint. Vitals Vital Signs Recorded: [id number] 10:01AM Heart Rate60, L Radial Vplupytj548, LUE, Sitting Hdpejzfym05, LUE, Sitting Height5 ft 10 in Tqbrpm096 lb BMI Uettsbbebv26.54 kg/m2 BSA Calculated2.02 Tobacco Useb) No Physical Exam Constitutional: alert and in no acute distress. Neck: neck is supple, symmetric, trachea midline, no masses and no thyromegaly . Pulmonary: no increased work of breathing or signs of respiratory distress and lungs clear to auscultation. Cardiovascular: carotid pulses 2+ bilaterally with no bruit , JVP was normal, no thrills , regular rhythm, normal S1 and S2, no murmurs , pedal pu (more content not included)... Normal official.fm Tobacco Screening.on [address] 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 Hunt) PCI/Carlock (2.75x18) mLAD PCI/Partha (2.5x18) mRPLV CX small vessel, normal RCA 30% Normal cardiac ejection fraction August 2021 Cardiac Cath LVEF 55% Mixed hyperlipidemia (272.2) (E78.2) Presenting LDL 76:HDL 3 Tolerating addition Crestor 5mg Labs due in 2 months Overweight with body mass index (BMI) of 27 to 27.9 in adult (278.02,V85.23) (E66.3,Z68.27) Home wt. 179 pounds Has work boots on this morning Reviewed the merits of healthy lifestyle choices on overall cardiovascular health. Paroxysmal atrial fibrillation (427.31) (I48.0) s/p RFA with Dr Montesinos 1999 Orders 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, Mixed hyperlipidemia ALT - Alanine Aminotransferase, Serum; Status:Active; Requested for:[id number]; AST; Status:Active; Requested for:[id number]; Lipid Panel; Status:Active; Requested for:[id number]; Overweight with body mass index (BMI) of 27 to 27.9 in adult Start: Metoprolol Tartrate 25 MG Oral Tablet; TAKE 1 TABLET TWICE DAILY Healthy Weight Tips; Status:Complete; Done: [id number] SocHx: Never a smoker Tobacco Use Screening; Status:Complete; Done: 14Wqw0210 Patient Instructions Please bring all medicines, vitamins, and herbal supplements with you when you come to the office. Prescriptions will not be filled unless you are compliant with your follow up appointments or have a follow up appointment scheduled as per instruction of your physician. Refills should be requested at the time of your visit. PLAN: Through informed decision making process incorporating patients unique circumstances, the following treatment plan will be initiated: 1. Prescription drug management of cardiovascular medication for efficacy, adherence to treatment, side effect assessment and polypharmacy. Current treatment clinically warranted and to continue without modifications. 2. Lipid profile in 2 months 3. Return for follow-up; in the interim, contact the office if new symptoms arise. Dr. Lozada in 4 months Encourage healthy lifestyle choices including: - Heart Health Diet: eat plenty of nutrient-rich foods (fruits and veggies, whole grains, lean poultry and fish). Avoid saturated fats, trans fats and excess sodium and sugar. - Get at least 150 minutes per week of moderate-intensity aerobic activity. Brisk walking (at least 2.5 miles per hour), water aerobics, gardening, biking slower than 10 miles per hours. Any amount of movement is better than none. The simplest way to get moving and improve your health is to start walking. It's free, easy and can be done just about anywhere, even in place. Even if you have been sedentary for years, today is the day you can begin to make healthy changes in your life. Chief Complaint I am doing very well JACE MORTON is being seen for follow-up of a hospitalization for chest pain. Patient was recently hospitalized at [facility]. The patient was seen in Cardiology consult with subsequent cardiovascular management by [facility]. Hospitalization records have been reviewed. 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 Hunt Cardiovascular testing: cardiac cath with subsequent PCI Changes to cardiovascular medical regimen at time of discharge: all medications are new Discharge disposition: Home Right radial cath site healed without adverse sequelae. Presenting complaints one month of chest pain - resolved. Resumed riding bike - up to 17 miles. CR for 2 days but will not continue Meds: tolerating without complaints ASA, prasugrel - no difficulty with coverage. Reviewed importance of compliance Lipids: will check in 2 months History of Present Illness The patient states he has been generally doing well since the last visit. Comorbid Illnesses: hypertension and hyperlipidemia. Symptoms: denies chest pain at rest, resolved exertional chest pain, denies dyspnea, denies fatigue, denies exercise intolerance, denies palpitations, denies edema, denies orthopnea, denies dizziness and denies orthostatic dizziness. Associated symptoms: no syncope. His symptoms do not limit his activities. Disease Monitoring: The patient has had a stable weight. Medications: the patient is adherent with his medication regimen. He denies medication side effects. Surgical History Problems History of Angioplasty History of Cardiac catheterization with stent placement History of Catheter ablation Denied: History of Colonoscopy History of Hand surgery History of Hernia repair History of Myringoplasty History of Tonsillectomy Current Meds Medication NameInstruction Aspirin EC 81 MG Oral Tablet Delayed ReleaseTAKE 1 TABLET Daily CoQ10 100 MG Oral CapsuleTAKE 1 CAPSULE Daily Fe (more content not included)... Normal [employer] Tobacco Screening.on 022 Adult depression screening assessment No [facility] 250 DO Work Phone: Tobacco use status [facility] b) No [facility] 250 DO Work Phone: Complete Blood Count Auto Di ffon 09-10-2021 Basophils (Bld) [#/Vol] 0.0 10*3/uL Normal 0.0-0.2 [facility] Comment on above: Result Comment: PERF ORMED BY: [place] [address] PATHOLOGIST ASSEMBLER TRIM OWEN SERRA M.D. Performed By: #### H S TROP, CBC, PT, PTT, BMP, BNP, CK, CKMB #### [address] Basophils/100 WBC (Bld) 0.1 % Normal . [facility] Comment on above: Performed By: #### H S TROP, CBC, PT, PTT, BMP, BNP, CK, CKMB #### [address] Eosinophils (Bld) [#/Vol] 0.4 10*3/uL Normal 0.0-0.45 [facility] Comment on above: Performed By: #### H S TROP, CBC, PT, PTT, BMP, BNP, CK, CKMB #### [address] Eosinophils/100 WBC (Bld) 6.5 % Normal . [facility] Comment on above: Performed By: #### H S TROP, CBC, PT, PTT, BMP, BNP, CK, CKMB #### [address] Erythrocyte distribution width (RBC) [Ratio] 14.4 % Normal 12.0-14.8 [facility] Comment on above: Performed By: #### H S TROP, CBC, PT, PTT, BMP, BNP, CK, CKMB #### [address] Hematocrit (Bld) [Volume fraction] 46.6 % Normal 38.8-50.0 [facility] Comment on above: Performed By: #### H S TROP, CBC, PT, PTT, BMP, BNP, CK, CKMB #### [address] Hemoglobin (Bld) [Mass/Vol] 15.5 g/dL Normal 13.0-17.0 [facility] Comment on above: Performed By: #### H S TROP, CBC, PT, PTT, BMP, BNP, CK, CKMB #### [address] Lymphocytes (Bld) [#/Vol] 1.2 10*3/uL Normal 1.00-4.8 [facility] Comment on above: Performed By: #### H S TROP, CBC, PT, PTT, BMP, BNP, CK, CKMB #### [address] Lymphocytes/100 WBC (Bld) 19.2 % Normal . [facility] Comment on above: Performed By: #### H S TROP, CBC, PT, PTT, BMP, BNP, CK, CKMB #### [address] MCH (RBC) [Entitic mass] 29.7 pg Normal 27.5-35.2 [facility] Comment on above: Performed By: #### H S TROP, CBC, PT, PTT, BMP, BNP, CK, CKMB #### [address] MCV (RBC) [Entitic vol] 89.5 fL Normal 83.5-101 [facility] Comment on above: Performed By: #### H S TROP, CBC, PT, PTT, BMP, BNP, CK, CKMB #### [address] Mean Corpuscular HGB Conc 33.2 g/dL Normal 32.5-35.6 [facility] Comment on above: Performed By: #### H S TROP, CBC, PT, PTT, BMP, BNP, CK, CKMB #### [facility] [address] Monocytes (Bld) [#/Vol] 0.8 10*3/uL Normal 0.0-0.8 [facility] Comment on above: Performed By: #### H S TROP, CBC, PT, PTT, BMP, BNP, CK, CKMB #### [facility] [address] Monocytes/100 WBC (Bld) 11.9 % Normal . [facility] Comment on above: Performed By: #### H S TROP, CBC, PT, PTT, BMP, BNP, CK, CKMB #### [address] Neutrophils (Bld) [#/Vol] 4.0 10*3/uL Normal 1.8-7.7 [facility] Comment on above: Performed By: #### H S TROP, CBC, PT, PTT, BMP, BNP, CK, CKMB #### [address] Neutrophils/100 WBC (Bld) 62.3 % Normal . [facility] Comment on above: Performed By: #### H S TROP, CBC, PT, PTT, BMP, BNP, CK, CKMB #### [address] Nucleated RBC/100 WBC (Bld) [Ratio] 0.0 % Normal 0-0.5 [facility] Comment on above: Performed By: #### H S TROP, CBC, PT, PTT, BMP, BNP, CK, CKMB #### [address] Platelet mean volume (Bld) [Entitic vol] 8.2 fL Normal 6.6-10.1 [facility] Comment on above: Performed By: #### H S TROP, CBC, PT, PTT, BMP, BNP, CK, CKMB #### [facility] [address] [place] [address] Platelets (Bld) [#/Vol] 160 10*3/uL Normal 150-450 [facility] Comment on above: Performed By: #### H S TROP, CBC, PT, PTT, BMP, BNP, CK, CKMB #### [address] RBC (Bld) [#/Vol] 5.21 10*6/uL Normal 3.90-5.60 [facility] Comment on above: Performed By: #### H S TROP, CBC, PT, PTT, BMP, BNP, CK, CKMB #### [address] WBC (Bld) [#/Vol] 6.4 10*3/uL Normal 4.5-11.0 [facility] Comment on above: Performed By: #### H S TROP, CBC, PT, PTT, BMP, BNP, CK, CKMB #### [address] Comprehensive Metabolic Pane tsyon 09-10-2021 Albumin [Mass/Vol] 3.3 g/dL Normal 3.2-5.5 [facility] Comment on above: Performed By: #### H S TROP, CBC, PT, PTT, BMP, BNP, CK, CKMB #### [address] Albumin/Globulin [Mass ratio] 1.7 {ratio} Normal [facility] Comment on above: Performed By: #### H S TROP, CBC, PT, PTT, BMP, BNP, CK, CKMB #### [address] ALP [Catalytic activity/Vol] 40 U/L Normal 32-92 [facility] Comment on above: Performed By: #### H S TROP, CBC, PT, PTT, BMP, BNP, CK, CKMB #### [address] ALT [Catalytic activity/Vol] 32 U/L Normal 10-60 [facility] Comment on above: Performed By: #### H S TROP, CBC, PT, PTT, BMP, BNP, CK, CKMB #### [address] AST [Catalytic activity/Vol] 52 U/L High 10-42 [facility] Comment on above: Performed By: #### H S TROP, CBC, PT, PTT, BMP, BNP, CK, CKMB #### [address] Bilirubin [Mass/Vol] 1.0 mg/dL Normal 0.3-1.[address] [facility] Comment on above: Performed By: #### H S TROP, CBC, PT, PTT, BMP, BNP, CK, CKMB #### [address] Calcium [Mass/Vol] 8.6 mg/dL Normal 8.2-10.2 [facility] Comment on above: Performed By: #### H S TROP, CBC, PT, PTT, BMP, BNP, CK, CKMB #### [address] Chloride [Moles/Vol] 104 mmol/L Normal 95-[address] [facility] Comment on above: Performed By: #### H S TROP, CBC, PT, PTT, BMP, BNP, CK, CKMB #### [address] CO2 [Moles/Vol] 25.1 mmol/L Normal 22.0-30.0 [facility] Comment on above: Performed By: #### H S TROP, CBC, PT, PTT, BMP, BNP, CK, CKMB #### [address] Creatinine [Mass/Vol] 0.92 mg/dL Normal 0.64-1.27 [facility] Comment on above: Performed By: #### H S TROP, CBC, PT, PTT, BMP, BNP, CK, CKMB #### [address] [place] [address] [place] Creatinine Clr Calc Pharmacy 84.86 [facility] Comment on above: Performed By: #### H S TROP, CBC, PT, PTT, BMP, BNP, CK, CKMB #### [facility] [address] Estimated GFR ( Christy > 60 [facility] Comment on above: Result Comment: GFR estimated reference range: According to KDOQI guidelines, <60 ml/min/1.73m2 is sufficient to diagnose a patient with chronic kidney disease. Performed By: #### H S TROP, CBC, PT, PTT, BMP, BNP, CK, CKMB #### [address] Estimated GFR (Non- Am > 60 [facility] [facility] Comment on above: Performed By: #### H S TROP, CBC, PT, PTT, BMP, BNP, CK, CKMB #### [address] Globulin (S) [Mass/Vol] 2.0 g/dL Normal [facility] Comment on above: Performed By: #### H S TROP, CBC, PT, PTT, BMP, BNP, CK, CKMB #### [address] Glucose [Mass/Vol] 98 mg/dL Normal 70-100 [facility] Comment on above: Result Comment: [facility] Glucose Reference Range is dependent on time and content of last meal. Glucose of more than 200 mg/dL in a nonstressed, ambulatory subject supports the diagnosis of Diabetes Mellitus. ADA recommended reference range Performed By: #### H S TROP, CBC, PT, PTT, BMP, BNP, CK, CKMB #### [address] Potassium [Moles/Vol] 3.6 mmol/L Normal 3.5-5.1 [facility] Comment on above: Performed By: #### H S TROP, CBC, PT, PTT, BMP, BNP, CK, CKMB #### [address] Protein [Mass/Vol] 5.3 g/dL Low 6.1-7.9 [facility] Comment on above: Performed By: #### H S TROP, CBC, PT, PTT, BMP, BNP, CK, CKMB #### [facility] [address] Sodium [Moles/Vol] 136 mmol/L Normal 136-146 [facility] Comment on above: Performed By: #### H S TROP, CBC, PT, PTT, BMP, BNP, CK, CKMB #### [facility] [address] Urea nitrogen [Mass/Vol] 14 mg/dL Normal 9-23 [facility] Comment on above: Performed By: #### H S TROP, CBC, PT, PTT, BMP, BNP, CK, CKMB #### [facility] [address] ECG 12 lead ECGon 09-10-2021 ECG 12 lead ECG [facility] Main [place] [address] [place] [address] Electrocardiograph Report Signed Patient: Jace Morton MR#: [id number] : 1960 Acct:[id number] Age/Sex: 61 / M ADM Date: 09/09/21 Loc: Room: [address] [place] [address] Type: DIS IN Attending Dr: Roby Reinoso MD Ordering Provider: Ag Hunt MD Date of Service: 09/10/21 ECG/ECG 12 lead ECG: Post Angioplasty Procedure in AM Copies to: Test Reason : Blood Pressure : / mmHG Vent. Rate : 060 BPM Atrial Rate : 060 BPM P-R Int : 178 ms QRS Dur : 094 ms QT Int : 408 ms P-R-T Axes : 041 009 011 degrees QTc Int : 408 ms Normal sinus rhythm Normal ECG When compared with ECG of 09-SEP-2021 16:56, (Unconfirmed) No significant change was found Confirmed by KIERAN NAIR DO ([id number]) on 09/10/2021 1:05:24 PM Referred By: Electronically Signed By:KIERAN NAIR DO Transcribed By: MUS Signed By Kieran Nair DO 09/10 1305 Normal [facility] Lipid Panelon 09-10-2021 Cholesterol [Mass/Vol] 127 mg/dL Low 140-200 [facility] Comment on above: Result Comment: Chol less than 200 mg/dl low risk Chol 201-239 mg/dl borderline risk Chol 240 mg/dl and greater high risk Performed By: #### H S TROP, CBC, PT, PTT, BMP, BNP, CK, CKMB #### [facility] [address] Cholesterol in HDL [Mass/Vol] 34 mg/dL Normal 29-71 [facility] Comment on above: Result Comment: HDL CHOL ATP-III CLASSIFICATION Cardiovascular Risk HDL > or equal to 60 mg/dL LOW HDL < 40 mg/dL HIGH Performed By: #### H S TROP, CBC, PT, PTT, BMP, BNP, CK, CKMB #### [facility] [address] Cholesterol.total/Ch olesterol in HDL [Mass ratio] 3.7 {ratio} Normal <5.0 [facility] Comment on above: Result Comment: PERF ORMED BY: [place] [address] PATHOLOGIST ASSEMBLER TRIM OWEN SERRA M.D. Performed By: #### H S TROP, CBC, PT, PTT, BMP, BNP, CK, CKMB #### [facility] [address] [place] [address] LDL Cholesterol,Calculat ed 76 mg/dL Normal 0-100 [facility] Comment on above: Result Comment: LDL ATP III CLASSIFICATION LDL less than 100 mg/dL Optimal LDL 100-129 mg/dL Near or above optimal LDL 130-159 mg/dL Borderline high LDL 160-189 mg/dL High LDL greater than 189 mg/dL Very high Performed By: #### H S TROP, CBC, PT, PTT, BMP, BNP, CK, CKMB #### [address] Triglyceride w/Reflex 85 mg/dL Normal 35-149 [facility] Comment on above: Result Comment: TRIG ATP III CLASSIFICATION TRIG less than 150 mg/dL Normal TRIG 150-199 mg/dL Borderline high TRIG 200-500 mg/dL High TRIG greater than 500 mg/dL Very high Standard traceable to the Center for Disease Conrtrol and Prevention (CDC) test method. Performed By: #### H S TROP, CBC, PT, PTT, BMP, BNP, CK, CKMB #### [facility] [address] [place] [address] VLDL CHOLESTEROL 17 mg/dL Normal [facility] Comment on above: Performed By: #### H S TROP, CBC, PT, PTT, BMP, BNP, CK, CKMB #### [address] Troponin I High Sensitivityo n 09-10-2021 Troponin I High Sensitivity 4925 pg/mL Off scale high 0-20 [facility] Comment on above: Result Comment: Resu lts called at 0757 on 09/10/21 PERFORMED BY: [place] [address] PATHOLOGIST ASSEMBLER TRIM OWEN SERRA M.D. Performed By: #### H S TROP, CBC, PT, PTT, BMP, BNP, CK, CKMB #### [address] B-Type Natriuretic Peptideon 09-09-2021 Natriuretic peptide B (Bld) [Mass/Vol] 84.0 pg/mL Normal 5-100 [facility] Comment on above: Result Comment: PERF ORMED BY: [place] [address] PATHOLOGIST ASSEMBLER TRIM OWEN SERRA M.D. Performed By: #### H S TROP, CBC, PT, PTT, BMP, BNP, CK, CKMB #### [address] Basic Metabolic Panelon 08-27 Calcium [Mass/Vol] 9.6 mg/dL Normal 8.2-10.2 [facility] Comment on above: Performed By: #### H S TROP, CBC, PT, PTT, BMP, BNP, CK, CKMB #### [address] Chloride [Moles/Vol] 103 mmol/L Normal 95-[address] [facility] Comment on above: Performed By: #### H S TROP, CBC, PT, PTT, BMP, BNP, CK, CKMB #### [address] CO2 [Moles/Vol] 28.9 mmol/L Normal 22.0-30.0 [facility] Comment on above: Performed By: #### H S TROP, CBC, PT, PTT, BMP, BNP, CK, CKMB #### [address] Creatinine [Mass/Vol] 0.92 mg/dL Normal 0.64-1.27 [facility] Comment on above: Performed By: #### H S TROP, CBC, PT, PTT, BMP, BNP, CK, CKMB #### [address] Creatinine Clr Calc Pharmacy 84.86 [facility] Comment on above: Result Comment: PERF ORMED BY: [place] [address] PATHOLOGIST ASSEMBLER TRIM OWEN SERRA M.D. Performed By: #### H S TROP, CBC, PT, PTT, BMP, BNP, CK, CKMB #### [address] Estimated GFR ( Christy > 60 [facility] Comment on above: Result Comment: GFR estimated reference range: According to KDOQI guidelines, <60 ml/min/1.73m2 is sufficient to diagnose a patient with chronic kidney disease. Performed By: #### H S TROP, CBC, PT, PTT, BMP, BNP, CK, CKMB #### [address] Estimated GFR (Non- Am > 60 [facility] Comment on above: Performed By: #### H S TROP, CBC, PT, PTT, BMP, BNP, CK, CKMB #### [facility] [address] Glucose [Mass/Vol] 112 mg/dL High 70-100 [facility] Comment on above: Result Comment: [facility] Glucose Reference Range is dependent on time and content of last meal. Glucose of more than 200 mg/dL in a nonstressed, ambulatory subject supports the diagnosis of Diabetes Mellitus. ADA recommended reference range Performed By: #### H S TROP, CBC, PT, PTT, BMP, BNP, CK, CKMB #### [facility] [address] Potassium [Moles/Vol] 3.9 mmol/L Normal 3.5-5.1 [facility] Comment on above: Performed By: #### H S TROP, CBC, PT, PTT, BMP, BNP, CK, CKMB #### [address] Sodium [Moles/Vol] 141 mmol/L Normal 136-146 [facility] Comment on above: Performed By: #### H S TROP, CBC, PT, PTT, BMP, BNP, CK, CKMB #### [address] Urea nitrogen [Mass/Vol] 21 mg/dL Normal 9-23 [facility] Comment on above: Performed By: #### H S TROP, CBC, PT, PTT, BMP, BNP, CK, CKMB #### [address] COVID-19 / Flu A/B / RSV PCR on 09-09-2021 SARS-CoV-2 (COVID-19) RNA MIKE+probe Ql (Unsp spec) Healthcare Worker?: N COVID-19 Cepheid Result Negative for SARS-CoV-2 RNA by RT-PCR Flu A Cepheid Result Negative for Flu A RNA by RT-PCR Flu B Cepheid Result Negative for Flu B RNA by RT-PCR RSV Cepheid Result Negative for RSV RNA by RT-PCR COVID19 Blank Space Reference: Negative COVID19 Blank Space Cepheid Disclaimer The Cepheid Xpert Xpress CoV-2/Flu/RSV Plus has Cepheid Disclaimer not been FDA cleared or approved; this test has Cepheid Disclaimer been authorized by FDA under an EUA for use by Cepheid Disclaimer authorized laboratories; this test has been Cepheid Disclaimer authorized only for the simultaneous qualitative Cepheid Disclaimer detection and differentiation of nucleic acids from Cepheid Disclaimer SARS-CoV-2, influenza A, influenza B, and Cepheid Disclaimer respiratory syncytial virus (RSV), and not for any Cepheid Disclaimer other viruses or pathogens; and this test is only Cepheid Disclaimer authorized for the duration of the declaration that Cepheid Disclaimer circumstances exist justifying the authorization of Cepheid Disclaimer emergency use of in vitro diagnostic tests for Cepheid Disclaimer detection and/or diagnosis of COVID-19 under Cepheid Disclaimer Section 564(b)(1) of the Act, 21 U.S.C. ? 360bbb- Cepheid Disclaimer 3(b)(1), unless the authorization is terminated or Cepheid Disclaimer revoked sooner. PERFORMED BY: [place] [address] PATHOLOGIST ASSEMBLER TRIM OWEN SERRA M.D. [facility] Comment on above: Performed By: #### H S TROP, CBC, PT, PTT, BMP, BNP, CK, CKMB #### [address] COVID-19 Antigenon 2 COVID-19 Antigen Healthcare Worker?: N Vandana Reference Vandana Reference Negative SARS-CoV+SARS-CoV-2 (COVID-19) Ag [Presence] in Respiratory specimen by Rapid immunoassay Negative for SARS Antigen by MITCHELL COVID19 Blank Space Vandana Disclaimer Negative results, from patients with symptom Vandana Disclaimer onset beyond five days, should be treated as Vandana Disclaimer presumptive and confirmation with a molecular Vandana Disclaimer assay, if necessary, for patient management, Vandana Disclaimer may be performed. Negative results do not rule Vandana Disclaimer out COVID-19 and should not be used as the sole Vandana Disclaimer basis for treatment or patient management Vandana Disclaimer decisions, including infection control decisions. Vandana Disclaimer Negative results should be considered in the Vandana Disclaimer context of a patient's recent exposures, history Vandana Disclaimer and the presence of clinical signs and symptoms Vandana Disclaimer consistent with COVID-19. COVID19 Blank Space Vandana Disclaimer The Vandana SARS Antigen MITCHELL does not differentiate Vandana Disclaimer between SARS-CoV and SARS-CoV-2. COVID19 Blank Space Vandana Disclaimer This test was developed and its performance Vandana Disclaimer characteristic determined by [employer] and Vandana Disclaimer validated at [facility]. This Vandana Disclaimer test has not been FDA cleared or approved. This Vandana Disclaimer test has been authorized by FDA under an Emergency Use Vandana Disclaimer Authorization (EUA). This test has been validated Vandana Disclaimer in accordance with the FDA's Guidance Document (Policy Vandana Disclaimer for Diagnostics Testing in Laboratories Certified to [employer] Perform High Complexity Testing under CLIA prior to Vandana Disclaimer Emergency Use Authorization for Coronavirus Vandana Disclaimer is during the Public Health Emergency) Vandana Disclaimer issued on September 29, 2019. This test is only authorized Vandana Disclaimer for the duration of time the declaration that Vandana Disclaimer circumstances exist justifying the authorization of Vandana Disclaimer the emergency use of in vitro diagnostic tests for Vandana Disclaimer detection of SARS-CoV-2 virus and/or diagnosis of Vandana Disclaimer COVID-19 infection under section 564(b)(1) of the Vandana Disclaimer Act, 21 U.S.C. 360bbb-3(b)(1), unless the Vandana Disclaimer authorization is terminated or revoked sooner. PERFORMED BY: [place] [address] PATHOLOGIST ASSEMBLER TRIM OWEN SERRA M.D. Normal [facility] Comment on above: Performed By: #### H S TROP, CBC, PT, PTT, BMP, BNP, CK, CKMB #### [facility] [address] [place], [place] [id number] [facility] Cepheid COVID PCR Negativeon 09-09-2021 SARS-CoV-2 (COVID-19) RNA MIKE+probe Ql (Unsp spec) Negative Normal Negative [facility] Comment on above: Result Comment: This is a duplicate Cepheid Xpert? Xpress CoV-2/Flu/RSV Plus RNA by RT-PCR result to be used for statistical tracking purpose only. PERFORMED BY: [place] [address] PATHOLOGIST ASSEMBLER TRIM OWEN SERRA M.D. Performed By: #### H S TROP, CBC, PT, PTT, BMP, BNP, CK, CKMB #### [facility] [address] [place] [address] Complete Blood Count Auto Di ffon 09-09-2021 Basophils (Bld) [#/Vol] 0.0 10*3/uL Normal 0.0-0.2 [facility] Comment on above: Result Comment: PERF ORMED BY: [address] [place] [address] PATHOLOGIST ASSEMBLER TRIM OWEN SERRA M.D. Performed By: #### H S TROP, CBC, PT, PTT, BMP, BNP, CK, CKMB #### [address] Basophils/100 WBC (Bld) 0.1 % Normal . [facility] Comment on above: Performed By: #### H S TROP, CBC, PT, PTT, BMP, BNP, CK, CKMB #### [address] Eosinophils (Bld) [#/Vol] 0.4 10*3/uL Normal 0.0-0.45 [facility] Comment on above: Performed By: #### H S TROP, CBC, PT, PTT, BMP, BNP, CK, CKMB #### [address] Eosinophils/100 WBC (Bld) 5.5 % Normal . [facility] Comment on above: Performed By: #### H S TROP, CBC, PT, PTT, BMP, BNP, CK, CKMB #### [address] Erythrocyte distribution width (RBC) [Ratio] 14.0 % Normal 12.0-14.8 [facility] Comment on above: Performed By: #### H S TROP, CBC, PT, PTT, BMP, BNP, CK, CKMB #### [address] Hematocrit (Bld) [Volume fraction] 50.2 % High 38.8-50.0 [facility] Comment on above: Performed By: #### H S TROP, CBC, PT, PTT, BMP, BNP, CK, CKMB #### [address] Hemoglobin (Bld) [Mass/Vol] 16.6 g/dL Normal 13.0-17.0 [facility] Comment on above: Performed By: #### H S TROP, CBC, PT, PTT, BMP, BNP, CK, CKMB #### [address] Lymphocytes (Bld) [#/Vol] 1.0 10*3/uL Normal 1.00-4.8 [facility] Comment on above: Performed By: #### H S TROP, CBC, PT, PTT, BMP, BNP, CK, CKMB #### [address] Lymphocytes/100 WBC (Bld) 15.2 % Normal . [facility] Comment on above: Performed By: #### H S TROP, CBC, PT, PTT, BMP, BNP, CK, CKMB #### [address] MCH (RBC) [Entitic mass] 29.8 pg Normal 27.5-35.2 [facility] Comment on above: Performed By: #### H S TROP, CBC, PT, PTT, BMP, BNP, CK, CKMB #### [address] MCV (RBC) [Entitic vol] 90.0 fL Normal 83.5-101 [facility] Comment on above: Performed By: #### H S TROP, CBC, PT, PTT, BMP, BNP, CK, CKMB #### [address] Mean Corpuscular HGB Conc 33.1 g/dL Normal 32.5-35.6 [facility] Comment on above: Performed By: #### H S TROP, CBC, PT, PTT, BMP, BNP, CK, CKMB #### [address] Monocytes (Bld) [#/Vol] 0.8 10*3/uL Normal 0.0-0.8 [facility] Comment on above: Performed By: #### H S TROP, CBC, PT, PTT, BMP, BNP, CK, CKMB #### [address] Monocytes/100 WBC (Bld) 12.2 % Normal . [facility] Comment on above: Performed By: #### H S TROP, CBC, PT, PTT, BMP, BNP, CK, CKMB #### [address] Neutrophils (Bld) [#/Vol] 4.4 10*3/uL Normal 1.8-7.7 [facility] Comment on above: Performed By: #### H S TROP, CBC, PT, PTT, BMP, BNP, CK, CKMB #### [address] Neutrophils/100 WBC (Bld) 67.0 % Normal . [facility] Comment on above: Performed By: #### H S TROP, CBC, PT, PTT, BMP, BNP, CK, CKMB #### [address] Nucleated RBC/100 WBC (Bld) [Ratio] 0.0 % Normal 0-0.5 [facility] Comment on above: Performed By: #### H S TROP, CBC, PT, PTT, BMP, BNP, CK, CKMB #### [address] Platelet mean volume (Bld) [Entitic vol] 8.2 fL Normal 6.6-10.1 [facility] Comment on above: Performed By: #### H S TROP, CBC, PT, PTT, BMP, BNP, CK, CKMB #### [place] [address] [place] Platelets (Bld) [#/Vol] 181 10*3/uL Normal 150-450 [facility] Comment on above: Performed By: #### H S TROP, CBC, PT, PTT, BMP, BNP, CK, CKMB #### [place] [address] [place] RBC (Bld) [#/Vol] 5.58 10*6/uL Normal 3.90-5.60 [facility] Comment on above: Performed By: #### H S TROP, CBC, PT, PTT, BMP, BNP, CK, CKMB #### [address] [place] [address] [place] WBC (Bld) [#/Vol] 6.5 10*3/uL Normal 4.5-11.0 [facility] Comment on above: Performed By: #### H S TROP, CBC, PT, PTT, BMP, BNP, CK, CKMB #### [address] Creatine Kinaseon 09-09-2021 CK [Catalytic activity/Vol] 173 U/L Normal 22-269 [facility] Comment on above: Performed By: #### H S TROP, CBC, PT, PTT, BMP, BNP, CK, CKMB #### [facility] [address] [place] [address] Creatinine Kinase MBon 09-09 CK.MB [Mass/Vol] 53.3 ng/mL High 0.6-6.3 [facility] Comment on above: Performed By: #### H S TROP, CBC, PT, PTT, BMP, BNP, CK, CKMB #### [address] CKMB Relative Index 30.8 % High 0.00-2.50 [facility] Comment on above: Performed By: #### H S TROP, CBC, PT, PTT, BMP, BNP, CK, CKMB #### [address] ECG 12 lead ECGon 09-09-2021 ECG 12 lead ECG [facility] [place] [address] Electrocardiograph Report Signed Patient: Jace Morton MR#: [id number] : 1960 Acct:[id number] Age/Sex: 61 / M ADM Date: 09/09/21 Loc: Room: [address] [place] [address] Type: DIS IN Attending Dr: Roby Reinoso MD Ordering Provider: Ag Hunt MD Date of Service: 09/09/21 ECG/ECG 12 lead ECG: Post Angioplasty Procedure Copies to: Test Reason : Blood Pressure : / mmHG Vent. Rate : 065 BPM Atrial Rate : 065 BPM P-R Int : 184 ms QRS Dur : 092 ms QT Int : 426 ms P-R-T Axes : 035 007 018 degrees QTc Int : 443 ms Normal sinus rhythm Inferior-posterior infarct , age undetermined Abnormal ECG No previous ECGs available Confirmed by KIERAN NAIR DO ([id number]) on 09/10/2021 1:05:17 PM Referred By: MILTON Electronically Signed By:KIERAN NAIR DO Transcribed By: MUS Signed By Kieran Nair DO 09/10 1305 Normal [facility] ECG 12 lead ECG [facility] Main [address] [address] Electrocardiograph Report Signed Patient: Jcae Morton MR#: [id number] : 1960 Acct:[id number] Age/Sex: 61 / M ADM Date: 09/09/21 Loc: Room: [address] [place] [address] Type: DIS IN Attending Dr: Roby Reinoso MD Ordering Provider: Joby Dao DO Date of Service: 09/09/21 ECG/ECG 12 lead ECG: Chest Pain Copies to: Test Reason : Blood Pressure : / mmHG Vent. Rate : 050 BPM Atrial Rate : 050 BPM P-R Int : 172 ms QRS Dur : 096 ms QT Int : 430 ms P-R-T Axes : 049 048 048 degrees QTc Int : 392 ms Sinus bradycardia Confirmed by Joby DAO DO ([id number]) on 09/09/2021 10:50:04 AM Referred By: Electronically Signed By:Joby DAO DO Transcribed By: MUS Signed By Joby Dao DO 0 09/09/21 1050 [facility] Partial Thromboplastin Timeo n 09-09-2021 aPTT Coag (Bld) [Time] 32.2 s Normal 25.1-36.5 [facility] Comment on above: Result Comment: PERF ORMED BY: [place] [address] PATHOLOGIST ASSEMBLER TRIM OWEN SERRA M.D. Performed By: #### H S TROP, CBC, PT, PTT, BMP, BNP, CK, CKMB #### [facility] [address] [place] [id number] [place] Prothrombin Time INRon 09-09 INR Coag (PPP) [Relative time] 1.2 {INR} Normal [facility] Comment on above: Result Comment: INR Therapeutic Range A) Pre- and Peroperative OAT started two weeks before surgery. NOT HIP SURGERY: 1.5 - 2.5 HIP SURGERY: 2 - 3 B) Primary and secondary prevention of venous THROMBOSIS: 2 - 3 C) Active venous thrombosis, pulmonary embolism and prevention of recurrent venous thrombosis: 2 - 3 D) Prevention of arterial thromboembolism including patients with mechanical heart valves: 3 - 4.5 Performed By: #### H S TROP, CBC, PT, PTT, BMP, BNP, CK, CKMB #### [facility] [address] [place] [id number] [facility] PT Coag (PPP) [Time] 13.9 s High 9.0-12.[address] [facility] Comment on above: Performed By: #### H S TROP, CBC, PT, PTT, BMP, BNP, CK, CKMB #### [facility] [address] [place] [id number] [facility] Vandana Ag Negativeon 09-10-19 Vandana Ag Negative Negative Normal Negative [facility] Comment on above: Result Comment: This is a duplicate Vandana SARS Antigen (MITCHELL) result to be used for statistical tracking purpose only. PERFORMED BY: [place] [address] PATHOLOGIST ASSEMBLER TRIM OWEN SERRA M.D. Performed By: #### H S TROP, CBC, PT, PTT, BMP, BNP, CK, CKMB #### [facility] [address] [place] [id number] [place] Troponin I High Sensitivityo n 09-09-2021 Troponin I High Sensitivity 8966 pg/mL Off scale high 0-20 [facility] Comment on above: Order Comment: RETIM ED DUE TO LABS NOT GOTTEN IN ER Result Comment: Resu lts called at 2131 on 09/09/21 PERFORMED BY: [place] [id number] PATHOLOGIST ASSEMBLER TRIM OWEN SERRA M.D. Performed By: #### H S TROP, CBC, PT, PTT, BMP, BNP, CK, CKMB #### [address] Troponin I High Sensitivity 5025 pg/mL Off scale high 0-20 [facility] Comment on above: Order Comment: PT IN ER THEY DID NOT DRAW 1230 TROP RETIMED [id number] Result Comment: Resu lts called at 1828 on 09/09/21 PERFORMED BY: [place] [address] PATHOLOGIST ASSEMBLER TRIM OWEN SERRA M.D. Performed By: #### H S TROP, CBC, PT, PTT, BMP, BNP, CK, CKMB #### [address] Troponin I High Sensitivity 1106 pg/mL Off scale high 0-20 [facility] Comment on above: Result Comment: Resu lts called at 1026 on 09/09/21 PERFORMED BY: [place] [address] PATHOLOGIST ASSEMBLER TRIM OWEN SERRA M.D. Performed By: #### H S TROP, CBC, PT, PTT, BMP, BNP, CK, CKMB #### [place] [id number] [facility] XR chest 2V*on 09-09-2021 XR chest 2V* [facility] Main [place] [address] [place] [address] XRay Report Signed Patient: Jace Morton MR#: [id number] : 1960 Acct:[id number] Age/Sex: 61 / M ADM Date: 09/09/21 Loc: ER Room: Type: [facility] ER Attending Dr: Ordering Provider: Joby Dao DO Date of Service: 09/09/21 XR/XR chest 2V*: Chest Pain Copies to: Joby Dao DO PA AND LATERAL CHEST: CLINICAL HISTORY: Midsternal chest pain for one month COMPARISON: None FINDINGS: Heart is normal in size. Lungs are clear. No free air. Osseous structures demonstrate degenerative change. XR/XR chest 2V* IMPRESSION: NO ACUTE CARDIOPULMONARY ABNORMALITY. Impression dictated by: Prudencio Draper Jr., D.O.09/09/2021 8:47 AM Dictation Location: [place] [address] Transcribed By: [facility] 09/09/21846 Dictated By: Prudencio Draper Jr, DO 09/09/21846 Signed By: 09/09/2147 [facility] BNPon 09-05-2021 Natriuretic peptide B (Bld) [Mass/Vol] 132.0 pg/mL Normal <=900.0 [facility] Comment on above: Performed By: #### H STROPN, BNP, CMP #### [facility] [address] [place] [address] [address] Jaycee Mejias CBC AUTO DIFFon 09-05-2021 BASO # 0.0 103/ul Normal 0.0-0.1 [facility] Comment on above: Performed By: #### H STROPN, BNP, CMP #### [facility] [address] [place] [address] [address] Jaycee Mejias Basophils/100 WBC (Bld) 0.4 % Normal 0.2-2.0 [facility] Comment on above: Performed By: #### H STROPN, BNP, CMP #### [facility] [address] [place] [address] [address] Jaycee Mejias EO # 0.3 103/ul Normal 0.0-0.7 [facility] Comment on above: Performed By: #### H STROPN, BNP, CMP #### [facility] [address] [place] [address] [address] Jaycee Mejias Eosinophils/100 WBC (Bld) 4.3 % Normal 0.9-7.0 [facility] Comment on above: Performed By: #### H STROPN, BNP, CMP #### [facility] [address] [place] [address] [address] Jaycee Mejias Erythrocyte distribution width (RBC) [Ratio] 13.3 % Normal 11.0-15.0 [facility] Comment on above: Performed By: #### H STROPN, BNP, CMP #### [facility] [address] [place] [address] Dr. Jaycee Mejias Hematocrit (Bld) [Volume fraction] 50.5 % Normal 42.0-54.0 [facility] Comment on above: Performed By: #### H STROPN, BNP, CMP #### [facility] [address] [place] [address] Dr. Jaycee Mejias Hemoglobin (Bld) [Mass/Vol] 16.7 g/dL Normal 14.0-18.0 [facility] Comment on above: Performed By: #### H STROPN, BNP, CMP #### [facility] [address] [place] [address] Dr. Jaycee Mejias IG # 0.01 10e3/ul Normal 0.00-0.03 [facility] Comment on above: Performed By: #### H STROPN, BNP, CMP #### [facility] [address] [place] [address] Dr. Jaycee Mejias IG % 0.1 % Normal 0.0-0.5 [facility] Comment on above: Performed By: #### H STROPN, BNP, CMP #### [facility] [address] [place] [address] Dr. Jaycee Mejias LYMPH # 2.1 103/ul Normal 1.2-3.8 [facility] Comment on above: Performed By: #### H STROPN, BNP, CMP #### [facility] [address] [place] [address] Dr. Jaycee Mejias Lymphocytes/100 WBC (Bld) 29.3 % Normal 20.5-60.0 [facility] Comment on above: Performed By: #### H STROPN, BNP, CMP #### [facility] [address] [place] [address] Dr. Jaycee Mejias MANUAL DIFF REQ NO Normal [facility] Comment on above: Performed By: #### H STROPN, BNP, CMP #### [facility] [address] [place] [address] Dr. Jaycee Mejias MCH (RBC) [Entitic mass] 29.9 pg Normal 25.9-34.0 [facility] Comment on above: Performed By: #### H STROPN, BNP, CMP #### [facility] [address] [place] [address] Dr. Jaycee Mejias MCHC (RBC) [Mass/Vol] 33.1 g/dL Normal 29.9-35.2 [facility] Comment on above: Performed By: #### H STROPN, BNP, CMP #### [facility] [address] [address] [address] Jaycee Mejias MCV (RBC) [Entitic vol] 90.3 fL Normal 80.0-94.0 [facility] Comment on above: Performed By: #### H STROPN, BNP, CMP #### [facility] [address] [place] [address] Dr. Jaycee Mejias MONO # 0.7 103/ul Normal 0.3-0.8 [facility] Comment on above: Performed By: #### H STROPN, BNP, CMP #### [facility] [address] [place] [address] Dr. Jaycee Mejias Monocytes/100 WBC (Bld) 10.1 % Normal 1.7-12.0 [facility] Comment on above: Performed By: #### H STROPN, BNP, CMP #### [facility] [address] [place] [address] Dr. Jaycee Mejias NEUT # 3.9 103/ul Normal 1.4-6.5 [facility] Comment on above: Performed By: #### H STROPN, BNP, CMP #### [facility] [address] [place] [address] Dr. Jaycee Mejias Neutrophils/100 WBC (Bld) 55.8 % Normal 43.0-75.0 [facility] Comment on above: Performed By: #### H STROPN, BNP, CMP #### [facility] [address] [place] [address] Dr. Jaycee Mejias Platelet mean volume (Bld) [Entitic vol] 10.2 fL Normal 9.5-13.5 [facility] Comment on above: Performed By: #### H STROPN, BNP, CMP #### [facility] [address] [place] [address] Dr. Jaycee Mejias PLT 201 103/ul Normal 150-450 [facility] Comment on above: Performed By: #### H STROPN, BNP, CMP #### [facility] [address] [address] [address] Jaycee Mejias RBC 5.59 106/ul Normal 4.70-6.10 [facility] Comment on above: Performed By: #### H STROPN, BNP, CMP #### [facility] [address] [place] [address] Dr. Jaycee Mejias WBC 7.0 103/ul Normal 4.0-11.0 [facility] Comment on above: Performed By: #### H STROPN, BNP, CMP #### [facility] [address] [place] [address] Dr. Jaycee Mejias PROF 14(COMP METB)on 022 Albumin [Mass/Vol] 4.2 g/dL Normal 3.5-5.0 [facility] Comment on above: Performed By: #### H STROPN, BNP, CMP #### [facility] [address] [place] [address] Dr. Jaycee Mejias Albumin/Globulin [Mass ratio] 1.4 {ratio} Normal [facility] Comment on above: Performed By: #### H STROPN, BNP, CMP #### [facility] [address] [place] [address] Dr. Jaycee Mejias ALP [Catalytic activity/Vol] 75 U/L Normal 38-126 [facility] Comment on above: Performed By: #### H STROPN, BNP, CMP #### [facility] [address] [place] [address] Dr. Jaycee Mejias ALT [Catalytic activity/Vol] 34 U/L Normal 21-72 [facility] Comment on above: Performed By: #### H STROPN, BNP, CMP #### [facility] [address] [place] [address] Dr. Jaycee Mejias Anion gap [Moles/Vol] 10.4 mmol/L Normal [facility] Comment on above: Performed By: #### H STROPN, BNP, CMP #### [facility] [address] [address] [address] Jaycee Mejias AST [Catalytic activity/Vol] 25 U/L Normal 17-59 [facility] Comment on above: Performed By: #### H STROPN, BNP, CMP #### [facility] [address] [address] [address] Jaycee Mejias Bilirubin [Mass/Vol] 0.6 mg/dL Normal 0.2-1.3 [facility] Comment on above: Performed By: #### H STROPN, BNP, CMP #### [facility] [address] [place] [address] Dr. Jaycee Mejias Calcium [Mass/Vol] 9.0 mg/dL Normal 8.4-10.2 [facility] Comment on above: Performed By: #### H STROPN, BNP, CMP #### [facility] [address] [place] [address] Dr. Jaycee Mejias Chloride [Moles/Vol] 103 mmol/L Normal 98-107 [facility] Comment on above: Performed By: #### H STROPN, BNP, CMP #### [facility] [address] [place] [address] Dr. Jaycee Mejias CO2 [Moles/Vol] 28.1 mmol/L Normal 22.0-30.0 [facility] Comment on above: Performed By: #### H STROPN, BNP, CMP #### [facility] [address] [place] [address] Dr. Jaycee Mejias Creatinine [Mass/Vol] 0.86 mg/dL Normal 0.66-1.25 [facility] Comment on above: Performed By: #### H STROPN, BNP, CMP #### [facility] [address] [address] [address] Jaycee Mejias EGFR-AF PAPUA [place] >60 Normal >=60 [facility] Comment on above: Performed By: #### H STROPN, BNP, CMP #### [facility] [address] [address] [address] Jaycee Mejias EGFR-NON AF [place] >60 Normal >=60 [facility] Comment on above: Performed By: #### H STROPN, BNP, CMP #### [facility] [address] [address] [address] Jaycee Mejias Globulin (S) [Mass/Vol] 3.1 g/dL Normal [facility] Comment on above: Performed By: #### H STROPN, BNP, CMP #### [facility] [address] [address] [address] Jaycee Mejias Glucose [Mass/Vol] 110 mg/dL Critically high 74-106 [facility] Comment on above: Performed By: #### H STROPN, BNP, CMP #### [facility] [address] [address] [address] Jaycee Mejias Potassium [Moles/Vol] 3.5 mmol/L Normal 3.4-5.0 [facility] Comment on above: Performed By: #### H STROPN, BNP, CMP #### [facility] [address] [address] [address] Jaycee Mejias Protein [Mass/Vol] 7.3 g/dL Normal 6.1-8.2 [facility] Comment on above: Performed By: #### H STROPN, BNP, CMP #### [facility] [address] [address] [address] Jaycee Mejias Sodium [Moles/Vol] 138 mmol/L Normal 137-145 [facility] Comment on above: Performed By: #### H STROPN, BNP, CMP #### [facility] [address] [address] [address] Jaycee Mejias Urea nitrogen [Mass/Vol] 25.0 mg/dL Critically high 9.0-20.0 [facility] Comment on above: Performed By: #### H STROPN, BNP, CMP #### [facility] [address] [address] [address] Jaycee Mejias Urea nitrogen/Creatinine [Mass ratio] 29.1 mg/mg Normal [facility] Comment on above: Performed By: #### H STROPN, BNP, CMP #### [facility] [address] [place] [address] Dr. Jaycee Mejias PROTIMEon 09-05-2021 INR Coag (PPP) [Relative time] 1.11 {INR} Normal [facility] Comment on above: Performed By: #### P TT, PT #### [facility] [address] [place] [address] Dr. Jaycee Mejias INR GUIDELINES SEE BELOW Normal [facility] Comment on above: Result Comment: KADY RED INR: 2.0 - 3.0 CONDITIONS NOT LISTED BELOW 2.5 - 3.5 FOR PROSTHETIC HEART VALVE REPLACEMENT 2.5 - 3.5 RECURRENT THROMBOSIS Performed By: #### P TT, PT #### [facility] [address] [place] [address] Dr. Jaycee Mejias PT Coag (PPP) [Time] 11.9 s Critically high 9.0-11.6 [facility] Comment on above: Performed By: #### P TT, PT #### [facility] [address] [place] [address] Dr. Jaycee Mejias PTTon 09-05-2021 aPTT Coag (Bld) [Time] 27.8 s Normal 22.3-36.2 [facility] Comment on above: Performed By: #### P TT, PT #### [facility] [address] [place] [address] Dr. Jaycee Mejias TROPONIN, HIGH SENSITIVITYon 09-05-2021 HSTROP 25.9 pg/mL Normal 4.0-42.2 [facility] Comment on above: Result Comment: CUT- OFF POINTS HAVE BEEN ESTABLISHED BASED ON THE FOURTH UNIVERSAL DEFINITIONS OF MYOCARDIAL INFARCTION. THE UPPER REFERENCE LIMIT (URL) OF TROPONIN, DEFINED THE 99TH PERCENTILE OF cTnI DISTRIBUTION IN A REFERENCE POPULATION, HAS BEEN CONFIRMED THE DECISION THRESHOLD FOR LA DIAGNOSIS. Performed By: #### H STROPN, BNP, CMP #### [facility] [address] [place] [address] Dr. Jaycee Mejias XR CHEST 1 Von 09-05-2021 XR CHEST 1 V EXAMINATION:XR CHEST 1 V INDICATION:CHEST PAIN, UNSPECIFIED COMPARISON:None TECHNIQUE:A single frontal view of the chest is submitted. FINDINGS: The cardiomediastinal silhouette is not enlarged. The pulmonary vascularity is within normal limits. The lungs are clear based on chest radiography. There is no costophrenic angle blunting. IMPRESSION: Unremarkable plain film examination of the chest. Electronically authenticated by: BRYAN VARGAS Date: 2021-09-05 18:32 Normal [facility] CBC AUTO DIFFon 06-03-2021 BASO # 0.0 103/ul Normal 0.0-0.1 [facility] Comment on above: Performed By: #### C BC #### [facility] [address] [place] [address] Dr. Jaycee Mejias Basophils/100 WBC (Bld) 0.4 % Normal 0.2-2.0 [facility] Comment on above: Performed By: #### C BC #### [facility] [address] [place] [address] Dr. Jaycee Mejias EO # 0.6 103/ul Normal 0.0-0.7 [facility] Comment on above: Performed By: #### C BC #### [facility] [address] [place] [address] Dr. Jaycee Mejias Eosinophils/100 WBC (Bld) 13.8 % Critically high 0.9-7.0 [facility] Comment on above: Performed By: #### C BC #### [facility] [address] [place] [address] Dr. Jaycee Mejias Erythrocyte distribution width (RBC) [Ratio] 13.0 % Normal 11.0-15.0 [facility] Comment on above: Performed By: #### C BC #### [facility] [address] [place] [address] Dr. Jaycee Mejias Hematocrit (Bld) [Volume fraction] 48.3 % Normal 42.0-54.0 [facility] Comment on above: Performed By: #### C BC #### [facility] [address] [place] [address] Dr. Jaycee Mejias Hemoglobin (Bld) [Mass/Vol] 15.9 g/dL Normal 14.0-18.0 [facility] Comment on above: Performed By: #### C BC #### [facility] [address] [place] [address] Dr. Jaycee Mejias IG # 0.01 10e3/ul Normal 0.00-0.03 [facility] Comment on above: Performed By: #### C BC #### [facility] [address] [place] [address] Dr. Jaycee Mejias IG % 0.2 % Normal 0.0-0.5 [facility] Comment on above: Performed By: #### C BC #### [facility] [address] [place] [address] Dr. Jaycee Mejias LYMPH # 1.3 103/ul Normal 1.2-3.8 [facility] Comment on above: Performed By: #### C BC #### [facility] [address] [place] [address] Dr. Jaycee Mejias Lymphocytes/100 WBC (Bld) 28.2 % Normal 20.5-60.0 [facility] Comment on above: Performed By: #### C BC #### [facility] [address] [place] [address] Dr. Jaycee Mejias MANUAL DIFF REQ NO Normal [facility] Comment on above: Performed By: #### C BC #### [facility] [address] [place] [address] Dr. Jaycee Mejias MCH (RBC) [Entitic mass] 29.8 pg Normal 25.9-34.0 [facility] Comment on above: Performed By: #### C BC #### [facility] [address] [place] [address] Dr. Jaycee Mejias MCHC (RBC) [Mass/Vol] 32.9 g/dL Normal 29.9-35.2 [facility] Comment on above: Performed By: #### C BC #### [facility] [address] [place] [address] Dr. Jaycee Mejias MCV (RBC) [Entitic vol] 90.6 fL Normal 80.0-94.0 [facility] Comment on above: Performed By: #### C BC #### [facility] [address] [place] [address] Dr. Jaycee Mejias MONO # 0.6 103/ul Normal 0.3-0.8 [facility] Comment on above: Performed By: #### C BC #### [facility] [address] [place] [address] Dr. Jaycee Mejias Monocytes/100 WBC (Bld) 12.7 % Critically high 1.7-12.0 [facility] Comment on above: Performed By: #### C BC #### [facility] [address] [place] [address] Dr. Jaycee Mejias NEUT # 2.0 103/ul Normal 1.4-6.5 [facility] Comment on above: Performed By: #### C BC #### [facility] [address] [place] [address] Dr. Jaycee Mejias Neutrophils/100 WBC (Bld) 44.7 % Normal 43.0-75.0 [facility] Comment on above: Performed By: #### C BC #### [facility] [address] [place] [address] Dr. Jaycee Mejias Platelet mean volume (Bld) [Entitic vol] 10.5 fL Normal 9.5-13.5 [facility] Comment on above: Performed By: #### C BC #### [facility] [address] [place] [address] Dr. Jaycee Mejias PLT 168 103/ul Normal 150-450 [facility] Comment on above: Performed By: #### C BC #### [facility] [address] [place] [address] Dr. Jaycee Mejias RBC 5.33 106/ul Normal 4.70-6.10 [facility] Comment on above: Performed By: #### C BC #### [facility] [address] [place] [address] Dr. Jaycee Mejias WBC 4.5 103/ul Normal 4.0-11.0 [facility] Comment on above: Performed By: #### C BC #### [facility] [address] [address] [address] Jaycee Mejias GLYCOHEMOGLOBIN A1Con 2020 ADA RECOMMENDATION ADA THERAPEUTIC TARG ET 6.0 - 7.0 ACTION SUGGESTED > 7.0 Normal [facility] Comment on above: Performed By: #### H STROPN, BNP, CMP #### [facility] [address] [address] [address] Jaycee Mejias Glucose [Mass/Vol] 108 mg/dL Normal [facility] Comment on above: Performed By: #### H STROPN, BNP, CMP #### [facility] [address] [address] [address] Jaycee Mejias HbA1c (Bld) [Mass fraction] 5.4 % Normal <=6.0 [facility] Comment on above: Performed By: #### H STROPN, BNP, CMP #### [facility] [address] [address] [address] Jaycee Mejias LIPID PROFILEon 06-03-2021 CHOL-HDL RATIO NORM SEE BELOW Normal [facility] Comment on above: Result Comment: 3.3 - 4.4 LOW RISK 4.4 - 7.1 AVERAGE RISK 7.1 - 11.0 MODERATE RISK >11.0 HIGH RISK Performed By: #### H STROPN, BNP, CMP #### [facility] [address] [address] [address] Jaycee Mejias Cholesterol [Mass/Vol] 189 mg/dL Normal <=200 [facility] Comment on above: Performed By: #### H STROPN, BNP, CMP #### [facility] [address] [address] [address] Jaycee Mejias Cholesterol in HDL [Mass/Vol] 50 mg/dL Normal [facility] Comment on above: Performed By: #### H STROPN, BNP, CMP #### [facility] [address] [address] [address] Jaycee Mejias Cholesterol in LDL [Mass/Vol] 130.2 mg/dL Normal [facility] Comment on above: Performed By: #### H STROPN, BNP, CMP #### [facility] [address] [address] [address] Jaycee Mejias Cholesterol.total/Ch olesterol in HDL [Mass ratio] 3.8 {ratio} Normal [facility] Comment on above: Performed By: #### H STROPN, BNP, CMP #### [facility] [address] [address] [address] Jaycee Mejias HDL NORMAL > or = 60 mg/dl - LO W CARDIOVASCULAR RISK <40 mg/dl - HIGH CARDIOVASCULAR RISK Normal [facility] Comment on above: Performed By: #### H STROPN, BNP, CMP #### [facility] [address] [address] [address] Jaycee Mejias LDL CALC NORMAL SEE BELOW Normal [facility] Comment on above: Result Comment: <100 mg/dl OPTIMAL 100 - 129 mg/dl NEAR OR ABOVE OPTIMAL 130 - 159 mg/dl BORDERLINE HIGH 160 - 189 mg/dl HIGH >190 mg/dl VERY HIGH Performed By: #### H STROPN, BNP, CMP #### [facility] [address] [address] [address] Jaycee Mejias Triglyceride [Mass/Vol] 44 mg/dL Normal <=150 [facility] Comment on above: Performed By: #### H STROPN, BNP, CMP #### [facility] [address] [address] [address] Jaycee Mejias VLDL CALC 8.8 mg/dL Normal [facility] Comment on above: Performed By: #### H STROPN, BNP, CMP #### [facility] [address] [address] [address] Jaycee Mejias PROF CHEM 8 (BAS METB)on Anion gap [Moles/Vol] 9.7 mmol/L Normal [facility] Comment on above: Performed By: #### H STROPN, BNP, CMP #### [facility] [address] [place] [address] Dr. Jaycee Mejias Calcium [Mass/Vol] 9.4 mg/dL Normal 8.4-10.2 [facility] Comment on above: Performed By: #### H STROPN, BNP, CMP #### [facility] [address] [address] [address] Jaycee Mejias Chloride [Moles/Vol] 104 mmol/L Normal 98-107 [facility] Comment on above: Performed By: #### H STROPN, BNP, CMP #### [facility] [address] [address] [address] Jaycee Mejias CO2 [Moles/Vol] 33.2 mmol/L Critically high 22.0-30.0 [facility] Comment on above: Performed By: #### H STROPN, BNP, CMP #### [facility] [address] [address] [address] Jaycee Mejias Creatinine [Mass/Vol] 0.86 mg/dL Normal 0.66-1.25 [facility] Comment on above: Performed By: #### H STROPN, BNP, CMP #### [facility] [address] [address] [address] Jaycee Mejias EGFR-AF P[place] >60 Normal >=60 [facility] Comment on above: Performed By: #### H STROPN, BNP, CMP #### [facility] [address] [address] [address] Jaycee Mejias EGFR-NON AF [place] >60 Normal >=60 [facility] Comment on above: Performed By: #### H STROPN, BNP, CMP #### [facility] [address] [address] [address] Jaycee Mejias Glucose [Mass/Vol] 90 mg/dL Normal 74-106 [facility] Comment on above: Performed By: #### H STROPN, BNP, CMP #### [facility] [address] [address] [address] Jaycee Mejias Potassium [Moles/Vol] 3.9 mmol/L Normal 3.4-5.0 [facility] Comment on above: Performed By: #### H STROPN, BNP, CMP #### [facility] [address] [address] [address] Jaycee Mejias Sodium [Moles/Vol] 143 mmol/L Normal 137-145 [facility] Comment on above: Performed By: #### H STROPN, BNP, CMP #### [facility] [address] [place] [address] Dr. Jaycee Mejias Urea nitrogen [Mass/Vol] 23.0 mg/dL Critically high 9.0-20.0 [facility] Comment on above: Performed By: #### H STROPN, BNP, CMP #### [facility] [address] [place] [address] Dr. Jaycee Mejias Urea nitrogen/Creatinine [Mass ratio] 26.7 mg/mg Normal [facility] Comment on above: Performed By: #### H STROPN, BNP, CMP #### [facility] [address] [place] [address] Dr. Jaycee Mejias VITAMIN D 25 OHon 06-03-2021 VIT D 25-OH 80.4 ng/mL Normal [facility] Comment on above: Performed By: #### H STRONICHOLAS, BNP, CMP #### [facility] [address] [place] [address] Dr. Jaycee Mejias VIT D RANGES SEE BELOW Normal [facility] Comment on above: Result Comment: <20 ng/mL Vit D deficient 20 - <30 ng/mL Vit D insufficient 30 - 100 ng/mL Vit D sufficient >100 ng/mL Potential Toxicity Performed By: #### H STRONICHOLAS, BNP, CMP #### [facility] [address] [place] [address] Dr. Jaycee Mejias CBC AUTO DIFFon 03-15-2021 BASO # 0.0 103/ul Normal 0.0-0.1 [facility] Comment on above: Performed By: #### C BC #### [facility] [address] [place] [address] Dr. Jaycee Mejias Basophils/100 WBC (Bld) 0.5 % Normal 0.2-2.0 [facility] Comment on above: Performed By: #### C BC #### [facility] [address] [place] [address] Dr. Jaycee Mejias EO # 0.7 103/ul Normal 0.0-0.7 [facility] Comment on above: Performed By: #### C BC #### [facility] [address] [place] [address] Dr. Jaycee Mejias Eosinophils/100 WBC (Bld) 12.6 % Critically high 0.9-7.0 [facility] Comment on above: Performed By: #### C BC #### [facility] [address] [place] [address] Dr. Jaycee Mejias Erythrocyte distribution width (RBC) [Ratio] 12.9 % Normal 11.0-15.0 [facility] Comment on above: Performed By: #### C BC #### [facility] [address] [place] [address] Dr. Jaycee Mejias Hematocrit (Bld) [Volume fraction] 41.8 % Critically low 42.0-54.0 [facility] Comment on above: Performed By: #### C BC #### [facility] [address] [place] [address] Dr. Jaycee Mejias Hemoglobin (Bld) [Mass/Vol] 14.2 g/dL Normal 14.0-18.0 [facility] Comment on above: Performed By: #### C BC #### [facility] [address] [place] [address] Dr. Jaycee Mejias IG # 0.01 10e3/ul Normal 0.00-0.03 [facility] Comment on above: Performed By: #### C BC #### [facility] [address] [place] [address] Dr. Jaycee Mejias IG % 0.2 % Normal 0.0-0.5 [facility] Comment on above: Performed By: #### C BC #### [facility] [address] [place] [address] Dr. Jaycee Mejias LYMPH # 1.5 103/ul Normal 1.2-3.8 [facility] Comment on above: Performed By: #### C BC #### [facility] [address] [place] [address] Dr. Jaycee Mejias Lymphocytes/100 WBC (Bld) 27.0 % Normal 20.5-60.0 [facility] Comment on above: Performed By: #### C BC #### [facility] [address] [place] [address] Dr. Jaycee Mejias MANUAL DIFF REQ NO Normal [facility] Comment on above: Performed By: #### C BC #### [facility] [address] [place] [address] Dr. Jaycee Mejias MCH (RBC) [Entitic mass] 30.0 pg Normal 25.9-34.0 [facility] Comment on above: Performed By: #### C BC #### [facility] [address] [place] [address] Dr. Jaycee Mejias MCHC (RBC) [Mass/Vol] 34.0 g/dL Normal 29.9-35.2 [facility] Comment on above: Performed By: #### C BC #### [facility] [address] [place] [address] Dr. Jaycee Mejias MCV (RBC) [Entitic vol] 88.2 fL Normal 80.0-94.0 [facility] Comment on above: Performed By: #### C BC #### [facility] [address] [place] [place] [address] Dr. Jaycee Mejias MONO # 0.6 103/ul Normal 0.3-0.8 [facility] Comment on above: Performed By: #### C BC #### [facility] [address] [place] [address] Dr. Jaycee Mejias Monocytes/100 WBC (Bld) 9.8 % Normal 1.7-12.0 [facility] Comment on above: Performed By: #### C BC #### [facility] [address] [place] [address] Dr. Jaycee Mejias NEUT # 2.8 103/ul Normal 1.4-6.5 [facility] Comment on above: Performed By: #### C BC #### [facility] [address] [place] [address] Dr. Jaycee Mejias Neutrophils/100 WBC (Bld) 49.9 % Normal 43.0-75.0 [facility] Comment on above: Performed By: #### C BC #### [facility] [address] [address] [address] Jaycee Mejias Platelet mean volume (Bld) [Entitic vol] 10.0 fL Normal 9.5-13.5 [facility] Comment on above: Performed By: #### C BC #### [facility] [address] [place] [address] Dr. Jaycee Mejias PLT 187 103/ul Normal 150-450 [facility] Comment on above: Performed By: #### C BC #### [facility] [address] [address] [address] Jaycee Mejias RBC 4.74 106/ul Normal 4.70-6.10 [facility] Comment on above: Performed By: #### C BC #### [facility] [address] [place] [address] Dr. Jaycee Mejias WBC 5.6 103/ul Normal 4.0-11.0 [facility] Comment on above: Performed By: #### C BC #### [facility] [address] [place] [address] Dr. Jaycee Mejias CRPon 03-15-2021 CRP [Mass/Vol] mg/L Normal <=1.[address] [facility] Comment on above: Performed By: #### H STROPN, BNP, CMP #### [facility] [address] [place] [address] Dr. Jaycee Mejias D-DIMERon 03-15-2021 D-DIMER 1.15 mg/L FEU Critically high 0.19-0.50 [facility] Comment on above: Result Comment: Test repeated, critical value verified. Performed By: #### D DIM, PTT, PT #### [facility] [address] [place] [address] Dr. Jaycee Mejias D-DIMER COMMENTS SEE BELOW Normal [facility] Comment on above: Result Comment: Incr eases in D-Dimer concentration observed with thromboembolic events can be variable due to localization, size, and age of the thrombus. Therefore, a thromboembolic event cannot be diagnosed with certainty on the basis of the reference range. D-Dimers may also be elevated for a variety of disorders including: advanced age, , coronary disease, cancer, liver disease, infection, inflammation, hematoma, DIC, trauma, post-surgery, diabetes, thrombolytic or anticoagulant therapy, stress, and generalized hospitalization. Performed By: #### D DIM, PTT, PT #### [facility] [address] [address] [address] Jaycee Mejias PROF 14(COMP METB)on 021 Albumin [Mass/Vol] 3.6 g/dL Normal 3.5-5.0 [facility] Comment on above: Performed By: #### H STROPN, BNP, CMP #### [facility] [address] [place] [address] Dr. Jaycee Mejias Albumin/Globulin [Mass ratio] 1.2 {ratio} Normal [facility] Comment on above: Performed By: #### H STROPN, BNP, CMP #### [facility] [address] [place] [address] Dr. Jaycee Mejias ALP [Catalytic activity/Vol] 66 U/L Normal 38-126 [facility] Comment on above: Performed By: #### H STROPN, BNP, CMP #### [facility] [address] [place] [address] Dr. Jaycee Mejias ALT [Catalytic activity/Vol] 32 U/L Normal 21-72 [facility] Comment on above: Performed By: #### H STROPN, BNP, CMP #### [facility] [address] [place] [address] Dr. Jaycee Mejias Anion gap [Moles/Vol] 10.2 mmol/L Normal [facility] Comment on above: Performed By: #### H STROPN, BNP, CMP #### [facility] [address] [place] [address] Dr. Jaycee Mejias AST [Catalytic activity/Vol] 25 U/L Normal 17-59 [facility] Comment on above: Performed By: #### H STROPN, BNP, CMP #### [facility] [address] [place] [address] Dr. Jaycee Mejias Bilirubin [Mass/Vol] 0.4 mg/dL Normal 0.2-1.3 [facility] Comment on above: Performed By: #### H STROPN, BNP, CMP #### [facility] [address] [address] [address] Jaycee Mejias Calcium [Mass/Vol] 9.3 mg/dL Normal 8.4-10.2 [facility] Comment on above: Performed By: #### H STROPN, BNP, CMP #### [facility] [address] [address] [address] Jaycee Mejias Chloride [Moles/Vol] 105 mmol/L Normal 98-107 [facility] Comment on above: Performed By: #### H STROPN, BNP, CMP #### [facility] [address] [address] [address] Jaycee Mejias CO2 [Moles/Vol] 30.3 mmol/L Critically high 22.0-30.0 [facility] Comment on above: Performed By: #### H STROPN, BNP, CMP #### [facility] [address] [address] [address] Jaycee Mejias Creatinine [Mass/Vol] 0.79 mg/dL Normal 0.66-1.25 [facility] Comment on above: Performed By: #### H STROPN, BNP, CMP #### [facility] [address] [place] [address] Dr. Jaycee Mejias EGFR-AF P[place]UA [place] >60 Normal >=60 [facility] Comment on above: Performed By: #### H STROPN, BNP, CMP #### [facility] [address] [place] [address] Dr. Jaycee Mejias EGFR-NON AF P[place] >60 Normal >=60 [facility] Comment on above: Performed By: #### H STROPN, BNP, CMP #### [facility] [address] [address] [address] Jaycee Mejias Globulin (S) [Mass/Vol] 3.0 g/dL Normal [facility] Comment on above: Performed By: #### H STROPN, BNP, CMP #### [facility] [address] [address] [address] Jaycee Mejias Glucose [Mass/Vol] 107 mg/dL Critically high 74-106 [facility] Comment on above: Performed By: #### H STROPN, BNP, CMP #### [facility] [address] [address] [address] Jaycee Mejias Potassium [Moles/Vol] 3.5 mmol/L Normal 3.4-5.0 [facility] Comment on above: Performed By: #### H STROPN, BNP, CMP #### [facility] [address] [place] [address] Dr. Jaycee Mejias Protein [Mass/Vol] 6.6 g/dL Normal 6.1-8.2 [facility] Comment on above: Performed By: #### H STROPN, BNP, CMP #### [facility] [address] [place] [address] Dr. Jaycee Mejias Sodium [Moles/Vol] 142 mmol/L Normal 137-145 [facility] Comment on above: Performed By: #### H STROPN, BNP, CMP #### [facility] [address] [place] [address] Dr. Jaycee Mejias Urea nitrogen [Mass/Vol] 33.0 mg/dL Critically high 9.0-20.0 [facility] Comment on above: Performed By: #### H STROPN, BNP, CMP #### [facility] [address] [place] [address] Dr. Jaycee Mejias Urea nitrogen/Creatinine [Mass ratio] 41.8 mg/mg Normal [facility] Comment on above: Performed By: #### H STROPN, BNP, CMP #### [facility] [address] [place] [address] Dr. Jaycee Mejias PROTIMEon 03-15-2021 INR Coag (PPP) [Relative time] 1.14 {INR} Normal [facility] Comment on above: Performed By: #### D DIM, PTT, PT #### [facility] [address] [place] [address] Dr. Jaycee Mejias INR GUIDELINES SEE BELOW Normal [facility] Comment on above: Result Comment: KADY RED INR: 2.0 - 3.0 CONDITIONS NOT LISTED BELOW 2.5 - 3.5 FOR PROSTHETIC HEART VALVE REPLACEMENT 2.5 - 3.5 RECURRENT THROMBOSIS Performed By: #### D DIM, PTT, PT #### [facility] [address] [address] [address] Jaycee Mejias PT Coag (PPP) [Time] 12.2 s Critically high 9.0-11.6 [facility] Comment on above: Performed By: #### D DIM, PTT, PT #### [facility] [address] [address] [address] Jaycee Mejias PTTon 03-15-2021 aPTT Coag (Bld) [Time] 28.5 s Normal 22.3-36.2 [facility] Comment on above: Performed By: #### D DIM, PTT, PT #### [facility] [address] [address] [address] Jaycee Me[facility]ias [facility] SED [facility] 14 mm/hr Normal <=20 [facility] Comment on above: Performed By: #### H STROPN, BNP, CMP #### [facility] [address] [place] [address] Dr. Jaycee Mejias US LOU DOP LEG BILon 021 US LOU DOP LEG CAROLANN EXAMINATION: US LOU DOP LEG CAROLANN HISTORY: D-dimer above reference range , bilateral leg edema, areas of left leg tenderness COMPARISON: No relevant comparison available. FINDINGS: REGION: Bilateral lower extremities THROMBI: Nonocclusive thrombus within proximal great saphenous vein and a branching varicosity. No thrombus within the deep vein system. COMPRESSIBILITY: Partial compressibility of the great saphenous vein. Normal compressibility of the deep system. FLOW: Normal waveform and antegrade flow between 5 and 20 cm/s within the deep system. OTHER: None. IMPRESSION: 1. No deep vein thrombus within the right or left lower extremity. 2. Superficial thrombophlebitis involving a varicose vein within the proximal anterior left leg extending slightly into the great saphenous vein (superficial vein). Electronically authenticated by: ALEXY EMTZ Date: 2021-03-15 09:33 Normal [facility] Vital Signs Date Time Vital Sign Value Performing Clinician Facility 08-05-2023 15:06-0500 Body height 177.8 cm Dread Lozada DO Work Phone: [facility] 08-05-2023 15:06-0500 Body mass index (BMI) [Ratio] 26.83 kg/m2 Dread Lozada DO Work Phone: [facility] 08-05-2023 15:06-0500 Body weight 84.82 kg Dread Lozada DO Work Phone: [facility] 08-05-2023 15:06-0500 Diastolic blood pressure 72 mm[Hg] Dread Lozada DO Work Phone: [facility] 08-05-2023 15:06-0500 Heart rate 65 /min Dread Lozada DO Work Phone: [facility] 08-05-2023 15:06-0500 Systolic blood pressure 112 mm[Hg] Dread Lozada DO Work Phone: [facility] 07-14-2023 15:08-0500 Blood Pressure Location Rico NILL [facility] [place] 07-14-2023 15:08-0500 Diastolic blood pressure 74 mm[Hg] Rico NILL [facility] [place] 07-14-2023 15:08-0500 Heart rate 72 /min Rico NILL [facility] [place] 07-14-2023 15:08-0500 Respiratory rate 16 /min Rico NILL [facility] [place] 07-14-2023 15:08-0500 Systolic blood pressure 128 mm[Hg] Rico NILL [facility] 12-22-2022 15:50-0400 Body height 177.8 cm Rashmi Whitaker Other [facility] Other 12-22-2022 15:50-0400 Body mass index (BMI) [Ratio] 26.77 kg/m2 Rashmi Whitaker Other [facility] Other 12-22-2022 15:50-0400 Body weight 84.64 kg Rashmi Whitaker Other [facility] Other 12-22-2022 15:50-0400 Diastolic blood pressure 75 mm[Hg] Rashmi Sylvesterley Other [facility] Other 12-22-2022 15:50-0400 SaO2% (BldA) [Mass fraction] 98 % Rashmi Whitaker Other [facility] Other 12-22-2022 15:50-0400 Systolic blood pressure 124 mm[Hg] Rashmi Sylvesterley Other [facility] Other 12-10-2022 14:45-0400 Body height 177.8 cm Edilma Malinmond Other [facility] Other 12-10-2022 14:45-0400 Body mass index (BMI) [Ratio] 26.69 kg/m2 Edilma Malinmond Other [facility] Other 12-10-2022 14:45-0400 Body temperature 98.8 [degF] Edilma Malinmond Other [facility] Other 12-10-2022 14:45-0400 Body weight 84.37 kg Edilma Mena Other [facility] Other 12-10-2022 14:45-0400 Diastolic blood pressure 71 mm[Hg] Edilma Malinmond Other [facility] Other 12-10-2022 14:45-0400 Respiratory rate 18 /min Edilma Malinmond Other [facility] Other 12-10-2022 14:45-0400 SaO2% (BldA) [Mass fraction] 97 % Edilma Mena Other [facility] Other 12-10-2022 14:45-0400 Systolic blood pressure 131 mm[Hg] Edilma Mena Other [facility] Other 02-20-2022 10:01-0400 Body height 177.8 cm Ta Victor Valone Work Phone: [facility] [place] [facility] DO Work Phone: 02-20-2022 10:01-0400 Body mass index (BMI) [Ratio] 26.54 kg/m2 Ta Kayleigh Valone Work Phone: [facility] [place] [facility] DO Work Phone: 02-20-2022 10:01-0400 Body surface area Derived from formula 2.02 m2 Ta Victor Valone Work Phone: [facility] [place] 250 DO Work Phone: 02-20-2022 10:01-0400 Body weight 83.92 kg Ta L Valone Work Phone: [facility] [place] 250 DO Work Phone: 02-20-2022 10:01-0400 Diastolic blood pressure 62 mm[Hg] Ta L Valone Work Phone: [facility] 250 DO Work Phone: 02-20-2022 10:01-0400 Heart rate 60 /min Ta L Valone Work Phone: [facility] [place] 250 DO Work Phone: 02-20-2022 10:01-0400 Systolic blood pressure 100 mm[Hg] Ta L Valone Work Phone: [facility] 250 DO Work Phone: 10-18-2021 08:27-0400 Body height 177.8 cm Ta Barnardone Work Phone: [facility] 250 DO Work Phone: 10-18-2021 08:27-0400 Body mass index (BMI) [Ratio] 27.55 kg/m2 Ta Victor Valone Work Phone: [facility] 250 DO Work Phone: 10-18-2021 08:27-0400 Body surface area Derived from formula 2.05 m2 Ta Victor Valone Work Phone: [facility] 250 DO Work Phone: 10-18-2021 08:27-0400 Body weight 87.09 kg Ta Kayleigh Valone Work Phone: [facility] 250 DO Work Phone: 10-18-2021 08:27-0400 Diastolic blood pressure 87 mm[Hg] Ta Victor Valone Work Phone: [facility] 250 DO Work Phone: 10-18-2021 08:27-0400 Heart rate 59 /min Ta Victor Valone Work Phone: [facility] 250 DO Work Phone: 10-18-2021 08:27-0400 Systolic blood pressure 108 mm[Hg] Ta Victor Valone Work Phone: [facility] 250 DO Work Phone: Encounters Encounter Date Encounter Type Care Provider Facility Start: 08-05-2023 End: 08-05-2023 ambulatory [facility] Start: 08-05-2023 End: 08-05-2023 Encounter for preprocedural cardiovascular examination [facility] Start: 08-05-2023 End: 08-05-2023 Office consultation new/estab patient 60 min Dread Lozada DO Work Phone: [facility] Comment on above: Coronary artery dise ase involving gakona coronary artery of gakona heart without angina pectoris (Primary Dx); Mixed hyperlipidemia; Paroxysmal atrial fibrillation (CMS/HCC); Pre-operative cardiovascular examination; Never smoked cigarettes Start: 08-05-2023 End: 08-05-2023 Patient encounter status Dread Courtney Lozada DO Work Phone: [facility] Work Phone: Start: 07-14-2023 End: 07-15-2023 ambulatory Rico HUNTER Facility: [facility] Start: 07-14-2023 End: 07-14-2023 Patient encounter procedure Rico HUNTER General Surgery Nill/Said [facility] Start: 12-22-2022 End: 12-22-2022 ambulatory aRshmi Whitaker Other [facility] Other Start: 12-22-2022 Office outpatient vi sit 15 minutes Rashmi Whitaker [facility] Start: 12-10-2022 End: 12-10-2022 ambulatory Edilma Mena Other [facility] Other Start: 12-10-2022 Office outpatient ne w 20 minutes Edilma Mena [facility] Start: 09-30-2022 Rx Renewal Ta berrios Work Phone: [facility] 250 DO Work Phone: Start: 09-18-2022 Telephone encounter Ta Haddad Work Phone: [facility] 250 DO Work Phone: Start: 08-18-[address] Dread Lozada Facility: Start: 06-27-2022 End: 06-27-2022 ambulatory ADRIAN NUNES Facility:[facility] Start: 06-27-2022 End: 06-27-2022 ambulatory Adrian Nunes [employer]PERINTENDENT Work Phone: [facility] Comment on above: Treatment not availa ble (Primary Dx) Start: 06-27-2022 End: 06-27-2022 Telemedicine consultation with patient Adrian Nunes [employer] PREPARER.[employer] SUPERINTENDENT Work Phone: [facility] Start: 02-22-2022 End: 02-23-[address] ARTEAGA LISTED REQUEST Facility:[facility] Start: 02-20-2022 Office outpatient vi sit 15 minutes Ta Haddad Work Phone: [facility] 250 DO Work Phone: Start: 02-20-2022 ambulatory Dread Lozada Facility: Start: 10-18-2021 ambulatory Ms. Shruthi Galloway Facility: Start: 10-18-2021 Office outpatient vi sit 25 minutes Ta Haddad Work Phone: [facility] 250 DO Work Phone: Start: 09-26-2021 End: 10-24-[address] DREAD LOZADA Facility:[facility] Start: 09-10-2021 Message Dread langford DO Work Phone: [facility] 250 DO Work Phone: Start: 09-09-2021 End: 09-10-2021 Evaluation and management of inpatient Amara Mischler Facility:[facility] Start: 09-05-2021 End: 09-05-2021 ambulatory ALIYA MONCADA Facility:[facility] Start: 06-18-2021 End: 06-19-[address] TA HADDAD Facility:[facility] Start: 06-03-2021 End: 06-04-[address] TA HADDAD Facility:[facility] Start: 03-15-2021 End: 03-16-[address] TA HADDAD Facility:[facility] Start: 03-14-2021 End: 03-15-[address] TA HADDAD Facility:[facility] Start: 09-29-2016 End: 09-30-2016 Ambulatory NICOLASA LONGO Facility:[facility] Procedures Date Procedure Procedure Detail Performing Clinician Start: 08-05-2023 ECG 12-LEAD DREAD LOVELACE Start: 08-05-2023 Ecg routine ecg w/le ast 12 lds w/i&r Dread Courtney Lozada DO Work Phone: Start: 02-22-[address] COLLEEN HADDAD Comment on above: Performed By: #### H STROPN, BNP, CMP #### [facility] [address] [address] [address] Jaycee Mejias Start: 06-03-[address] COLLEEN HADDAD Comment on above: Performed By: #### H STROPN, BNP, CMP #### [facility] [address] [address] [address] Jaycee Mejias Start: 09-29-2016 ANESTH UPPER LEG VEI NS SURG ARTURO Ronel RHONDA Start: 09-29-2016 ENDOVENOUS LASER 1ST VEIN NICOLASA LONGO Start: 09-29-2016 VASCULAR SURGERY PROCEDURE NICOLASA LONGO Angioplasty of blood vessel Ta Haddad Work Phone: Angioplasty of blood vessel Rico CASEL Cardiac catheterization Karlene pilar Haddad Work Phone: Cardiac catheterization Jared rai NILL Catheter ablation of arrhythmogenic focus Ta Barnardone Work Phone: Catheter ablation of arrhythmogenic focus Rico NILL Coronary artery sten t (physical object) Rico NILL Comment on above: x2 Hernia repair Ta Barnardo ne Work Phone: Myringoplasty Ta Hale ne Work Phone: Myringoplasty Rico NILL Operative procedure on hand Ta Haddad Work Phone: Repair of right ingu inal hernia Rico CASEL Tonsillectomy Ta Hale ne Work Phone: Tonsillectomy Rico HUNTER NEGATED: Highlighted row has not occurred! Colonoscopy Ta Haddad Work Phone: Plan of Treatment Date Care Activity Detail Author Start: 02-22-2027 PROSTATE CANCER SCREENING DISCUSSION PROSTATE CANCER SCREENING DISCUSSION [facility] Start: 08-23-2024 End: 08-23-2024 Patient encounter procedure 08/23/2024 3:00 PM EST Office Visit [facility] [address] [place] [id number] Dread Lozada S, DO [address] [place] [address] [facility] Start: 08-05-2023 FUV, Provider: Dread Lozada, Status: Pen, Time: 9:30 AM FUV, Provider: Dread Lozada, Status: Pen, Time: 9:30 AM [facility] Work Phone: Start: 02-27-2023 COVID-19 Vaccine ( season) COVID-19 Vaccine ( season) [facility] Start: 02-27-2023 Influenza vaccination Influenza Vaccine (#1) [facility] Start: 08-21-2022 FUV, Provider: Dread Lozada, Status: Pen, Time: 9:20 AM FUV, Provider: rDead Lozada, Status: Pen, Time: 9:20 AM [facility] DO Work Phone: Start: 02-27-2022 Influenza vaccination INFLUENZA (#1) [facility] Start: 02-20-2022 FUV, Provider: Dread Lozada, Status: Pen, Time: 9:50 AM [facility]UV, Provider: Dread Lozada, Status: Pen, [facility]: 9[facility] Work [facility]: Start: 10-01-2021 FUV, Provider: Shruthi Young, Status: Pen, Time: 9:00 AM FUV, Provider: Shruthi Young, Status: Pen, Time: 9:00 AM [facility] Spaul[facility] DO Work Phone: Start: 08-13-2021 COVID-19 VACCINE (3 - Booster for Nida series) COVID-19 VACCINE (3 - Booster for Nida series) [facility] Start: 06-29-2021 DEPRESSION ASSESSMENT DEPRESSION ASSESSMENT [facility] Start: 2008 SHINGRIX VACCINE (1 of 2) SHINGRIX VACCINE (1 of 2) [facility] Start: 2008 Zoster Vaccines (1 of 2) Zoster Vaccines (1 of 2) [facility] Start: 2003 COLOGUARD (FIT-DNA) COLOGUARD (FIT-DNA) [facility] Start: 2003 Colonoscopy COLONOSCOPY [facility] Start: 2003 COLORECTAL CANCER SCREENING COLORECTAL CANCER SCREENING [facility] Start: [address] COLONOGRAPHY [facility] Start: 2003 DIABETES SCREEN DIABETES SCREEN [facility] Start: 2003 FECAL OCCULT BLOOD FECAL OCCULT BLOOD [facility] Start: 2003 SIGMOIDOSCOPY SIGMOIDOSCOPY [facility] Start: 1993 LIPID SCREEN LIPID SCREEN [facility] Start: 1980 DTaP/Tdap/Td Vaccines (1 - Tdap) DTaP/Tdap/Td Vaccines (1 - Tdap) [facility] Start: 1977 Urine microalbumin profile DTAP,TDAP,TD (1 - Tdap) [facility] Start: 1976 Diabetes mellitus screening Diabetes Screening [facility] Start: 1976 HEPATITIS C SCREENING HEPATITIS C SCREENING [facility] Start: 1976 Hepatitis C screening Hepatitis C Screening [facility] Start: 1976 HIV SCREENING HIV SCREENING [facility] Start: 1964 Pneumococcal Vaccine: 65+ Years (1 - PCV) Pneumococcal Vaccine: 65+ Years (1 - PCV) [facility] Start: 1959 MMR Vaccines (1 of 1 - Standard series) MMR Vaccines (1 of 1 - Standard series) [facility] Start: 1958 Annual wellness visit Medicare Initial Physical (IPPE) [facility] Start: 1958 Lipid panel Lipid Panel [facility] Start: 1958 Screening for malignant neoplasm of colon [facility] Immunizations Immunization Date Immunization Notes Care Provider Miriam gan 06-18-2021 Pfizer-BioNTech COVID-19 Vacc 30 MCG/0.3ML Intramuscular Suspension Ta Haddad Work Phone: [facility] [place] 09-03-2020 Nida COVID-19 Vaccine 0.5 ML Intramuscular Suspension Ta Haddad Work Phone: [facility] [place] 06-11-2009 novel [id number], preservative-free, injectable Ta Haddad Work Phone: [facility] 250 DO Work Phone: NEGATED: Highlighted row has not occurred!07-14-2023 influenza virus vaccine, unspecified formulation Rico HUNTER [facility] [place] Payers Date Payer Category Payer Medicare [id number] 2023 Unknown 2021 Unknown [id number] 2019 Unknown [id number] 1959 Self-pay [id number] 1959 Self-pay 1958 Unknown [id number] 2.16.84 [id number] 1958 Unknown [id number] 2.16.84 [id number] 1958 Unknown [id number] 2.16.84 [id number] 1958 Unknown [id number] 2.16.84 [id number] 1958 Unknown [id number] 2.16. [id number] 1958 Unknown [id number] 2.16. [id number] 1958 Unknown [id number] 2.16. [id number] 1958 Unknown [id number] 2.16.8 [id number] 1958 Unknown [id number] 2.16.8 [id number] Unknown [id number] Unknown [id number] 2.16.84 [id number] Unknown [id number] 2.16.84 [id number] Unknown [id number] 2.16.84 [id number] Unknown [id number] 2.16.8 [id number] Unknown [id number] Social History Date Type Detail Facility Start: 08-05-2023 Never a smoker Never a smoker -[facility] 250 DO Work Phone: Comment on above: a little green tea; Tobacco smoking status MEIS Tobacco smoking consumption unknown [facility] Start: 1960 Sex Assigned At Not on file C [facility] Start: 08-05-2023 Sex Assigned At F [facility] Start: 07-14-2023 End: 08-05-2023 Tobacco smoking status Never smoked tobacco (finding) General Surgery [facility] Tobacco smoking status Never General Surgery [place] Start: 08-05-2023 Tobacco use and exposure Smokeless tobacco non-user [facility] Work Phone: Start: 08-05-2023 Alcohol intake Lifetime non-d shon (finding) [facility] Work Phone: Start: 07-26-2023 End: 08-05-2023 Exposure to SARS-CoV-2 (event) Not sure [facility] Functional Status Date Assessment Result Facility 07-14-2023 Functional Status N/A [facility] Clinical Notes 06-27-2022 to 08-05-2023 Dread Lozada, DO - 08/05/2023 3:00 PM ESTPatient Instructions Note Date & Type Note Facility 08-05-2023 History of Present illness Narrative Subjective Jace Morton is a 63 y.o. male Chief Complaint Follow-up 63-year-old gentleman here for preoperative risk assessment clearance prior to inguinal hernia surgery. He has been holding off on this for over a year due to his revascularization of the LAD that occurred in 2021 necessitating 1 years worth of DAPT through 2022. He has done well since that time he has had no recurrent cardiovascular events or angina or nitrate usage He is exercising routinely on a daily basis getting over 10,000 steps in daily, performing bicycle exercise as well as weights. He held off on the weights for the past week due to his impending inguinal hernia surgery. Today's ECG is normal sinus rhythm and completely normal He underwent PCI of the LAD for non-ST elevation LA in August 2021 with an overall excellent clinical result and angiographic result with persistent clinical stability. His overall risk for cardiovascular events is low, less than 1%. He can come off his aspirin for 5 to 10 days prior to his surgical intervention, reinitiate aspirin 81 daily thereafterwards when bleeding risks are minimized, will follow-up otherwise in 1 year, continue active and healthy lifestyle. Review of Systems All other systems reviewed and are negative. EKG done in office today Visit Vitals BP 112/72 (BP Location: Left arm, Patient Position: Sitting) Pulse 65 Ht 1.778 m (5' 10 ) Wt 84.8 kg (187 lb) BMI 26.83 kg/m Smoking Status Never BSA 2.05 m Objective Physical Exam Constitutional: Appearance: Normal appearance. He is normal weight. HENT: Nose: Nose normal. Neck: Vascular: No carotid bruit. Cardiovascular: Rate and Rhythm: Normal rate. Pulses: Normal pulses. Heart sounds: Normal heart sounds. Pulmonary: Effort: Pulmonary effort is normal. Abdominal: General: Bowel sounds are normal. Palpations: Abdomen is soft. Genitourinary: Rectum: Normal. Musculoskeletal: General: Normal range of motion. Cervical back: Normal range of motion. Right lower leg: No edema. Left lower leg: No edema. Skin: General: Skin is warm and dry. Neurological: General: No focal deficit present. Mental Status: He is alert. Psychiatric: Mood and Affect: Mood normal. Behavior: Behavior normal. Thought Content: Thought content normal. Judgment: Judgment normal. Current Medications Current Outpatient Medications: aspirin 81 mg EC tablet, Take 1 tablet (81 mg) by mouth once daily., Disp: , Rfl: cholecalciferol (Vitamin D-3) 5,000 Units tablet, Take by mouth once daily., Disp: , Rfl: coenzyme V43-kaeaeyz E 100-5 mg-unit capsule, Take 3 capsules by mouth once daily., Disp: , Rfl: ferrous sulfate 325 (65 Fe) MG tablet, Take 1 tablet by mouth once daily., Disp: , Rfl: magnesium oxide (Mag-Ox) 400 mg tablet, 1 tablet (400 mg) once daily., Disp: , Rfl: metoprolol tartrate (Lopressor) 25 mg tablet, Take 0.5 tablets (12.5 mg) by mouth 2 times a day., Disp: , Rfl: nitroglycerin (Nitrostat) 0.4 mg SL tablet, Place 1 tablet (0.4 mg) under the tongue every 5 minutes if needed., Disp: , Rfl: omega 4-kqs-iey-fish oil 300 mg-100 mg- 150 mg-1,000 mg capsule, Take by mouth once daily., Disp: , Rfl: ramipril (Altace) 2.5 mg capsule, Take 1 capsule (2.5 mg) by mouth once daily., Disp: , Rfl: rosuvastatin (Crestor) 5 mg tablet, Take 1 tablet (5 mg) by mouth once daily at bedtime., Disp: , Rfl: Assessment/Plan 1. 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 2. Mixed hyperlipidemia 3. Paroxysmal atrial fibrillation (CMS/HCC) 4. Pre-operative cardiovascular examination 5. Never smoked cigarettes Scribe Attestation By signing my name below, IInge RN , Scribe attest that this documentation has been prepared under the direction and in the presence of Dread Lozada DO. documented in this encounter [facility] Work Phone: 08-05-2023 Instructions Debora Chaparro LPN - 08/05/2023 3:00 PM EST Please bring all medicines, vitamins, and herbal supplements with you when you come to the office. Prescriptions will not be filled unless you are compliant with your follow up appointments or have a follow up appointment scheduled as per instruction of your physician. Refills should be requested at the time of your visit. documented in this encounter [facility] Work Phone: 07-14-2023 Note Chief Complaint consultation for inguinal hernia HPI Staff 63 year old male presents on consultation from Dr. Haddad for left inguinal hernia. Reports noting intermittent bulge approximately two years ago. Denies change in size since first noted. Reports he is able to reduce this without difficulty. He wears truss with activity. Denies this being red. Denies nausea, vomiting or bowel changes. No imaging completed. History of Present Illness 63 yo male with h/o CAD, s/p angioplasty/stent 2 years ago, paroxysmal atrial fibrillation, treated with catheter ablation, DVT, hyperlipidemia, referred for left inguinal bulge; noticed 2 years ago, some increase in size; reducible; no N/V or bowel changes; h/o RIHR in 1991; on baby asa, no NSAIDs; no tobacco use. Review of Systems PHQ Score Initial Depression Screen Score: 0 SCORE ROS - Provider Constitutional: no fever, no sweats, no weight loss. Eyes: no glasses, no blurred vision, no visual loss. ENMT: no dentures, no hoarseness, no swallowing difficulties, no hearing loss, no ear infection(s), no nose bleeds. Cardiovascular: normal blood pressure, no chest pain, regular heartbeat, no heart murmur. Respiratory: no shortness of breath, no cough, no asthma, no wheezing. Gastrointestinal: no nausea, no vomiting, no diarrhea, no constipation, no blood in stool, no change in bowel habits, no abdominal pain, no hepatitis. Genitourinary: no kidney stones, no urine infection, no dysuria. Musculoskeletal: no pain, no weakness. Skin: no changing moles, no rash, no skin lumps. Neurologic: no seizures, no epilepsy, no headache. Psychiatric: no emotional or psychiatric problem. Heme/Lymph: no bleeding problems, no anemia, no blood clots, no transfusions. Allergy/Immunologic: no swollen lymph nodes/glands, no IV drug abuse. Other: Additional ROS info: Except as noted in the above Review of Systems and in the History of Present Illness, all other systems have been reviewed and are negative or noncontributory. Physical Exam Vitals & Measurements HR: 72(Peripheral) RR: 16 BP: 128/74 HT: 70 in HT: 177.8 cm WT: 87 kg WT: 191.4 lb BMI: 27.52 HEENT: normal conjunctiva, sclera clear, no scleral icterus, EOM intact, PERRLA, oral mucosa moist without lesions. Neck: trachea midline, no mass, symmetric, no thyromegaly or nodules, no adenopathy Respiratory: lungs CTA, respirations non labored. Cardiovascular: regular rate and rhythm, no murmur, no pedal edema or varicosities. Gastrointestinal: soft, non distended, no tenderness, no masses, 1 cm umbilical hernia sac, partially reducible, nontender; reducible left inguinal hernia, nontender, no right inguinal hernia, diastasis recti no, no hepatosplenomegaly; normal bs Lymphatic: no cervical adenopathy, supraclavicular adenopathy, no inguinal adenopathy. Musculoskeletal: normal gait, digits and nails without infection, nodes, cyanosis, clubbing. Skin: no rashes, no lesions, no ulcers, no subcutaneous nodules, induration. Psychiatric/Neuro: oriented to time, place, person, judgement normal, affect appropriate for age, insight intact, no focal deficits. Tests: review of old records completed , Discussed surgical options, risks, and possible complications with patient. Assessment/Plan 1. Reducible left inguinal hernia (K40.90: Unilateral inguinal hernia, without obstruction or gangrene, not specified as recurrent) plan left inguinal herniorrhaphy with mesh insertion, informed consent obtained. signs/symptoms of incarceration/strangulation of hernia explained in detail, and patient understands that he should seek prompt medical evaluation if they were to occur. 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 Follow-up No qualifying data available Problem List/Past Medical History Ongoing Allergic rhinitis BMI 27.0-27.9,adult Coronary arteriosclerosis History of DVT (deep vein thrombosis) Mixed hyperlipidemia NSTEMI (non-ST elevated myocardial infarction) Overweight Paroxysmal atrial fibrillation Reducible left inguinal hernia Historical No qualifying data Procedure/Surgical History Angioplasty of blood vessel, Cardiac catheterization, Catheter ablation of arrhythmogenic focus, Coronary artery stent, Myringoplasty, Repair of right inguinal hernia, Tonsillectomy. Medications aspirin 81 mg Oral EC Tab, 81 mg= 1 tab(s), Oral, Daily Metoprolol tartrate 25 mg Tab, 12.5 mg= 0.5 tab(s), Oral, BID multivitamin, 1 tab(s), Oral, Daily NitroStat 0.4 mg Tab ramipril rosuvastatin 5 mg Tab, 5 mg= 1 tab(s), Oral, Once a day (at bedtime) Allergies No Known Allergies No Known Medication Allergies Social History Alcohol - Denies Alcohol Use, 07/14/2023 Substance Abuse - Denies Substance Abuse, 07/14/2023 Tobacco Never (less than 100 in lifetime) Tobacco Use:. Never Smokeless Tobacco Use:., 07/14/2023 Family History Esopha (more content not included)... [facility] Comment on above: Result Comment: Elec tronically Signed By: DALE AWAN, Rico Shukla.[email or web address]\Date and Time Signed: 07/14/23 15:58 EST 12-22-2022 Evaluation note Encounter Date Diagnosis Assessment Notes Nov, Contact dermatitis due to poison jojo (ICD-10 - L23.7) Discussed with patient rash is consistent with contact dermatitis. Discussed typical duration of contact dermatitis 1 to 3 weeks. Advised steroid will help with inflammation and itching but rash will take time to completely resolve. We will treat with kenalog IM. Finish entire course. May continue topical calamine or similar. Avoid scratching or picking at areas to avoid secondary infection. Keep areas clean with soap and water. Follow-up with family doctor if not gradually improving over the next 10 days, sooner if significantly worsening or changing appearance. Patient verbalized understanding of treatment plan. [employer] Other 06-14-2023 Evaluation note* Encounter Date Diagnosis Assessment Notes Treatment Notes Treatment Clinical Notes Nov, Acute sinusitis, recurrence not specified, unspecified location (ICD-10 - J01.90) Sinusitis home care material was printed Drink plenty fluids, get plenty of rest. Continue home medications as prescribed. Take the amoxicillin with clavulanate and the prednisone as prescribed until gone. Continue your Flonase as prescribed. Take Tylenol or Motrin as needed for aches pains or fevers. Follow-up with your family physician if no improvement in 2 to 3 days. [employer] Other 12-30-2022 NoteHNO ID: [id number] Author: Adrian Nunes APRN.CNP Service: ? Author Type: Nurse Practitioner Type: Progress Notes Filed: 06/27/2022 10:08 AM Note Text: Patient actually Jace's , explained I am not able to assist her because I am in his chart. Recommended she log out and back in using her information and email.[facility]12-30-2022 History of Present illness Narrative* Adrian Nunes APRN.CNP - 06/27/2022 10:05 AM EST Patient actually Jace's , explained I am not able to assist her because I am in his chart. Recommended she log out and back in using her information and email. [facility] No data available for this section General Surgery [place] Evaluation note* Diagnosis Treatment not available- Primary Procedure not carried out for other reasons documented in this encounter [facility] note* Diagnosis 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- Primary Mixed hyperlipidemia Paroxysmal atrial fibrillation (CMS/HCC) Atrial fibrillation Pre-operative cardiovascular examination Never smoked cigarettes documented in this encounter [facility] Work Phone: [facility] general Narrative - Reported* Type Description Date Medical History HTN (hypertension) Medical History Hypercholesteremia Medical History LA (mitral incompetence) Surgical History hand surgery Surgical History tonsillectomy and adenoidectomy Surgical History ablasion Surgical History cardiac stent Hospitalization History No know Hospitalization history [employer] Other [facility] general Narrative - Reported* Type Description Date Medical History HTN (hypertension) Medical History Hypercholesteremia Medical History LA (mitral incompetence) Surgical History hand surgery Surgical History tonsillectomy and adenoidectomy Surgical History ablasion Surgical History cardiac stent Hospitalization History No Hospitalization histo ry information [facility] [employer] Other History of Present illness Narrative* The patient states he has been generally doing well since the last visit. Comorbid Illnesses: hypertension and hyperlipidemia. * Symptoms: denies chest pain at rest, resolved exertional chest pain, denies dyspnea, denies fatigue, denies exercise intolerance, denies palpitations, denies edema, denies orthopnea, denies dizzinessand denies orthostatic dizziness. * Associated symptoms: no syncope. * His symptoms do not limit his activities. * Disease Monitoring: The patient has had a stable weight. * Medications: the patient is adherent with his medication regimen. He denies medication side effects. -[facility] [address] DO Work Phone: Hospital Discharge instructions No data available for this section General Surgery [place] Progress note No data available for this section General Surgery [place] Summary Purpose Family History No Family History Records FoundUnknown Family Member Name Dates Details Family history of hypertensi on: Mother(V17.49, Z82.49) Status:Active Family history of malignant neoplasm of breast: Mother(V16.3, Z80.3) Status:Active Family history of myocardial infarction: Father(V17.3, Z82.49) Status:Active S/P CABG x 3: Father(V45.81, Z95.1) Status:Active Family history of malignant neoplasm of esophagus: Father(V16.0, Z80.0) Status:Active Tumor: Brother Status:Active Unknown Family Member Name Dates Details Family history of hypertensi on: Mother(V17.49, Z82.49) Status:Active Family history of malignant neoplasm of breast: Mother(V16.3, Z80.3) Status:Active Family history of myocardial infarction: Father(V17.3, Z82.49) Status:Active S/P CABG x 3: Father(V45.81, Z95.1) Status:Active Family history of malignant neoplasm of esophagus: Father(V16.0, Z80.0) Status:Active Tumor: Brother Status:Active Unknown Family Member Name Dates Details Family history of hypertensi on: Mother(V17.49, Z82.49) Status:Active Family history of malignant neoplasm of breast: Mother(V16.3, Z80.3) Status:Active Family history of myocardial infarction: Father(V17.3, Z82.49) Status:Active S/P CABG x 3: Father(V45.81, Z95.1) Status:Active Family history of malignant neoplasm of esophagus: Father(V16.0, Z80.0) Status:Active Tumor: Brother Status:Active Unknown Family Member Name Dates Details Family history of hypertensi on: Mother(V17.49, Z82.49) Status:Active Family history of malignant neoplasm of breast: Mother(V16.3, Z80.3) Status:Active Family history of myocardial infarction: Father(V17.3, Z82.49) Status:Active S/P CABG x 3: Father(V45.81, Z95.1) Status:Active Family history of malignant neoplasm of esophagus: Father(V16.0, Z80.0) Status:Active Tumor: Brother Status:Active Advance Directives No Advanced Directives Records FoundNo Advanced Directives Records FoundNo Advanced Directives Records FoundNo Advanced Directives Records FoundNo Advanced Directives Records FoundNo Advanced Directives Records FoundNo Advanced Directives Records FoundNo Advanced Directives Records Found Chief Complaint * I am doing very well * JACE MORTON is being seen for follow-up of a hospitalization for chest pain. * Patient was recently hospitalized at [facility]. The patient was seen in Cardiology consult with subsequent cardiovascular management by [facility]. Hospitalization records have been reviewed. * Reason for Cardiology Consultation: ACS * Consulting Plaster Mechanic: Dr. Hunt * Cardiovascular testing: cardiac cath with subsequent PCI * Changes to cardiovascular medical regimen at time of discharge: all medications are new * Discharge disposition: Home * Right radial cath site healed without adverse sequelae. * Presenting complaints one month of chest pain - resolved. * Resumed riding bike - up to 17 miles. * CR for 2 days but will not continue * Meds: * tolerating without complaints * ASA, prasugrel - no difficulty with coverage. Reviewed importance of compliance * Lipids: will check in 2 months * JACE MORTON is being seen for a 4 month follow-up of. * 61-year-old gentleman returns for follow-up and doing very well he has no cardiovascular complaints. He continues riding bicycle 100 miles a week, he alternates this with weight lifting as well. 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 He is totally asymptomatic and amazingly healthy. * He sustained a non-ST elevation LA with primary revascularization of the LAD and PLV branch of the RCA x2 stents performed by Dr. Hunt in August 2021, followed up with nurse practitioner in September and now myself he remains on appropriate guideline directed medical therapies with no untoward side effects and no recurrent hospitalizations * We counseled him on etiology for his LA including elite cycling, family genetics. 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 Pre-operative cardiovascular examination Procedures ECG 12 Lead Dread Lozada, DO [address] [facility] [address] [place] [address] Referral ID Status Reason Start Date Expiration Date V isits Requested Visits Authorized [id number] Authorized 08/05/2023 08/04/2024 1 1 Specialty Diagnoses / Procedures Referred By Tiffany franklin Referred To Contact Cardiology Diagnoses 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 Procedures Follow Up In Cardiology Dread Lozada DO [address] [place] [address] Referral ID Status Reason Start Date Expiration Date V isits Requested Visits Authorized [id number] Authorized 08/05/2023 08/04/2024 1 1 Additional Source Comments (unrecognized sect ion and content) No Status Records FoundNo Status Records FoundNo Status Records FoundNo Status Records FoundNo Status Records FoundNo Status Records FoundNo Status Records FoundNo Status Records Found INFORMATION SOURCE (unrecogn ized section and content) DATE CREATED AUTHOR 12/17/2017 [facility] DATE CREATED AUTHOR AUTHOR'S ORGANIZ ATION 02/23/2022 [facility] DATE CREATED AUTHOR AUTHOR'S ORGANIZ ATION 06/27/2022 [facility] DATE CREATED AUTHOR AUTHOR'S ORGANIZ ATION 08/02/2022 [facility] DATE CREATED AUTHOR AUTHOR'S ORGANIZ ATION 08/19/2022 [facility] DATE CREATED AUTHOR AUTHOR'S ORGANIZ ATION 08/19/2022 [employer] DATE CREATED AUTHOR AUTHOR'S ORGANIZ ATION 08/04/2023 [facility] DATE CREATED AUTHOR AUTHOR'S ORGANIZ ATION 08/10/2023 [facility] Source Comments (unrecognize d section and content) In the event this informatio n is protected by the Federal Confidentiality of Alcohol and Drug Abuse Patient Records regulations: The Federal rules restrict any use of the information to criminally investigate or prosecute any alcohol or drug abuse patient.[facility] Reason for Visit (unrecogniz ed section and content) Reason Comments Illness Reason Comments Follow-up 1 year with POC for hernia surgery Patient Care team informatio n (unrecognized section and content) Drone Operator Relationship Specialty Start Date End Date Ta Haddad DO PCP - General 10/18/21 FOR RECORDS PERTAINING TO PATIENTS WHO ARE OR HAVE BEEN ENROLLED IN A CHEMICAL DEPENDENCY/SUBSTANCEABUSE PROGRAM, SOME INFORMATION MAY BE OMITTED. This clinical summary was aggregated from multiple sources. Caution should be exercised in using it in the provision of clinical care. This summary normalizes information from multiple sources, and as a consequence, information in this document may materially change the coding, format and clinical context of patient data. In addition, data may be omitted in some cases. CLINICAL DECISIONS SHOULD BE BASED ON THE PRIMARY CLINICAL RECORDS. [facility] provides no warranty or guarantee of the accuracy or completeness of information in this document.
[2023-08-12] MEDS: LACTATED RINGER'S SOLUTION 1,000 ML 50 ML IV ×2 (08:23→11:30)
[2023-08-12] MEDS: CEFAZOLIN SODIUM/DEXTROSE,ISO 2 GM/50 ML PIGGYBACK IV (09:17)
[2023-08-12] MEDS: 0.9 % SODIUM CHLORIDE 10 ML INJ (09:21)
[2023-08-12] MEDS: BUPIVACAINE HCL 0.25% PF 25 MG/10 ML VIAL INJ (09:21)
[2023-08-12] MEDS: BUPIVACAINE LIPOSOME/PF 266 MG/13.3 ML VIAL 13.3 MG INJ (09:21)
[2023-08-12] MEDS: CEFAZOLIN SODIUM 1,000 MG in 0.9 % SODIUM CHLORIDE 10 ML 1 MG IRR (09:56)
== END 2023-08-12 12:08 | disposition home or self-care (01) ==
PROVIDERS: PCP Internal Medicine; Visit Provider Surgery
PROC: (CPT 830; principal; 2023-08-12 09:00)
DX: K40.90 Unilateral inguinal hernia, without obstruction or gangrene, not specified as recurrent (principal); Z79.01 Long term (current) use of anticoagulants; I48.91 Unspecified atrial fibrillation; I25.10 Atherosclerotic heart disease of native coronary artery without angina pectoris; D17.6 Benign lipomatous neoplasm of spermatic cord; I25.2 Old myocardial infarction; E78.2 Mixed hyperlipidemia; I48.0 Paroxysmal atrial fibrillation; E66.3 Overweight; Z68.27 Body mass index [BMI] 27.0-27.9, adult; Z95.5 Presence of coronary angioplasty implant and graft; Z79.82 Long term (current) use of aspirin; Z86.718 Personal history of other venous thrombosis and embolism
CPT/HCPCS: 49505; 55520; 36415; 64488; 88302; C1781; J0665; J0690; J1100; J2250; J2405; J2704; J3010

== ENCOUNTER 2024-01-08 06:41 | Outpatient (OUT) | payer OTHER, SELFPAY ==
[2024-01-08 07:01] LABS: Basophils Percent Auto 0.7 % (0.2-2.0); Eosinophils Absolute Auto 0.7 10^3/uL (0.0-0.7); Hematocrit 44.9 % (42.0-54.0); Hemoglobin 14.6 g/dL (14.0-18.0); Immature Granulocytes Abs Auto 0.01 10^3/uL (0.00-0.03); Immature Granulocytes Pct Auto 0.2 % (0.0-0.5); Lymphocytes Absolute Auto 1.3 10^3/uL (1.2-3.8); Lymphocytes Percent Auto 21.5 % (20.5-60.0); Mean Corpuscular HGB Conc 32.5 g/dL (29.9-35.2); Mean Corpuscular Hemoglobin 29.6 pg (25.9-34.0); Mean Corpuscular Volume 90.9 fL (80.0-94.0); Mean Platelet Volume 10.2 fL (9.5-13.5); Monocytes Absolute Auto 0.7 10^3/uL (0.3-0.8); Monocytes Percent Auto 11.3 % (1.7-12.0); Neutrophils Absolute Auto 3.2 10^3/uL (1.4-6.5); Neutrophils Percent Auto 54.3 % (43.0-75.0); Platelet Count 183 10^3/uL (150-450); Red Blood Count 4.94 10^6/uL (4.70-6.10); Red Cell Distribution Width 13.2 % (11.0-15.0); White Blood Count 5.8 10^3/uL (4.0-11.0)
[2024-01-08 10:09] LABS: Alanine Aminotransferase 25 U/L (16-63); Albumin Globulin Ratio 1.3; Albumin Level 3.4 g/dL (3.4-5.0); Alkaline Phosphatase 58 U/L (46-116); Anion Gap 9.6; Aspartate Amino Transferase 20 U/L (15-37); BUN Creatinine Ratio 22.4; Bilirubin Total 0.8 mg/dL (0.2-1.0); Calcium 8.9 mg/dL (8.5-10.1); Carbon Dioxide 32.4 mmol/L (21.0-32.0); Chloride 106 mmol/L (98-107); Chol HDL Ratio 2.5; Cholesterol 107 mg/dL (<=200); Estimated GFR (African America >60 (>=60); Estimated GFR (Non-African Ame >60 (>=60); Globulin 2.6 g/dL; Glucose 89 mg/dL (74-106); HDL Cholesterol 43 mg/dL (40-60); LDL Cholesterol Calculated 55.2 mg/dL; Sodium 144 mmol/L (136-145); Triglycerides 44 mg/dL (<=150); VLDL CHOLESTEROL 8.8 mg/dL
== END 2024-01-08 06:42 | disposition home or self-care (01) ==
LOC: LAB 06:41
DX: Z00.00 Encounter for general adult medical examination without abnormal findings (principal); I25.10 Atherosclerotic heart disease of native coronary artery without angina pectoris; E78.2 Mixed hyperlipidemia; Z12.5 Encounter for screening for malignant neoplasm of prostate
CPT/HCPCS: 36415; 80053; 80061; 85025; G0103

== ENCOUNTER 2024-01-11 13:55 | Outpatient (OUT) | payer OTHER, SELFPAY | END 2024-01-11 13:56 | disposition home or self-care (01) | LOC: PST 13:55 | PROVIDERS: Visit Provider Surgery | DX: Z01.818 Encounter for other preprocedural examination (principal); Z12.11 Encounter for screening for malignant neoplasm of colon ==

== ENCOUNTER 2024-05-23 13:37 | Outpatient (OUT) | payer OTHER, SELFPAY | END 2024-05-23 13:38 | disposition home or self-care (01) | LOC: PST 13:37 | PROVIDERS: Visit Provider Surgery | DX: Z01.818 Encounter for other preprocedural examination (principal); Z12.11 Encounter for screening for malignant neoplasm of colon ==

== ENCOUNTER 2024-05-31 08:48 | Day surgery (SDC) | payer OTHER, SELFPAY ==
--- OUTSIDE RECORDS SUMMARY | 2024-05-31 08:55 | XMS_ITS | CCD ---
Author Organization [facility] Care Team Providers Care Director Of Architecture Name Role Phone ABBAS, JIHAD T Unavailable Unavailable ABBAS, JIHAD T Unavailable Unavailable SELF, REFERRED Unavailable Unavailable SELF, REFERRED Unavailable Unavailable DE Unavailable Unavailable ABBAS, JIHAD T Unavailable Unavailable DE Unavailable Unavailable ARTURO ELLIS Unavailable Unavailable Ta Haddad Unavailable Unavailable Unavailable BOO, DR PASTOR Primary Care Unavailable SINDHU JANG Admitting Unavailable SUHAIL, SINDHU Attending Unavailable SINDHU JANG Consulting Unavailable REQUEST, DR ARTEAGA LISTED Admitting Unavaila miriam HADDAD, DR PASTOR Primary Care Unavailable REQUEST, DR ARTEAGA LISTED Attending Unavaila ble REQUEST, DR ARTEAGA LISTED Consulting Unavaila ble VALONE, DR PASTOR Consulting Unavailable VALONE, DR PASTOR Primary Care Unavailable VALONE, DR PASTOR Admitting Unavailable VALONE, DR PASTOR Attending Unavailable VALONE, DR PASTOR Primary Care Unavailable ZIEBER, DR ALEXY Berger Consulting Unavailable SUHAIL, SINDHU Admitting Unavailable SUHAIL, SINDHU Attending Unavailable SINDHU JANG Consulting Unavailable BOO, DR PASTOR Primary Care Unavailable ROE ARROYO Admitting Unavailable ROE ARROYO Attending Unavailable ROE ARROYO Consulting Unavailable HAYES, DR DREAD Valdez Attending Unavailmaureen KOO, DR DREAD Valdez Consulting Unavailmaureen e BOO, DR PASTOR Primary Care Unavailable HAYES, DR DREAD Valdez Admitting UnavailALIYA Diaz Consulting Unavailable ROBERT, DR TUCKER Admitting Unavailable BOO, DR PASTOR Primary Care Unavailable ROBERT, DR TUCKER Attending Unavailable BRYAN VARGAS Consulting Unavailable ADRIAN CRAMER Attending Unavailable Unavailable Primary Care Provider Unavailmaureen Koo, Dr. Dread To Referring Unarupesh Koo, Dr. Dread To Attending Andreeva heather Haddad Jr, Dr. Ta Topete Primary Care Andree Dread Caro Referring Andreevacorinne Koo, Dread Costa Attending Jocelin Haddad Jr, Dr. Ta Topete Primary Care Andree staci Galloway, . Shruthijodie Lyn Referring Jocelin Galloway, Ms. Shruthi Lyn Attending Jocelin Haddad Jr, Dr. Ta Topete Primary Care Andree Edilma Linares Unavailable Rashmi Whitaker Unavailable TA HADDAD JR Primary Care Physician Ta Haddad DO Primary Care Provider JR Ta Haddad Primary Care Provider MD Moon Hunter Attending Provider [phone] Moon HUNTER Attending Unavailable TA HADDAD Referring Unavailable Moon HUNTER Attending Unavailable Moon HUNTER Attending Unavailable Moon HUNTER Attending Unavailable DO Armond Baxter Primary Care Provider DO Armond Baxter Attending Provider MD Moon Mcwilliams Emergency Provider MD Roby Reinoso Admit Provider MD Roby Reinoso Attending Provider [phone] SONAL Bell Other Provider Unavailable DO Fabian Koo Other Provider MD Melody Collier Other Provider MD Dread Perez Other Provider MD Brennon Geller Other Provider MD Ta Laird Other Provider DONYA Galloway Other Provider MD Jes Tirado Other Provider MD Jaylon Hernandez Other Provider MD John Cleaning Other Provider Carissa [facility]- Rosario Victor Other Provider ARMNOD BAXTER Attending Unavailable ARMOND BAXTER Referring Unavailable GABRIEL CAMARGO Attending Unavailable JOSE RUGGIERO Attending Unavailable CUTMARCY ARMOND L Attending Unavailable CUTLER, ARMOND L Referring Unavailable CUTMARCY ARMOND L Attending Unavailable Shayla AWAN, Juan Morley Unavailable [phone] Armond Baxter DO Primary Care Provider Yousuf Koo MD Unavailable [phone] Renny Cuellar MD Unavailable Moon Hunter Attending Unavailable Moon Hunter Admitting Unavailable Ta Haddad Primary Care Unavailable [place] cerv[place] Attending Unavailable [place], Armond L Primary Care Unavailable [place] cervantes Admitting Unavailable Amara Bell Consulting Unavailable Armond Baxter Primary Care Unavailable Roby Reinoso Attending Unavailable Roby Reinoso Admitting Unavailable Fabian Koo Consulting Unavailable Melody Collier Consulting Unavailable Dread Perez Consulting Unavail able Brennon Geller Consulting Unavailable Ta Laird Consulting Unavailab Shruthi Tariq Consulting Unavailable Jes Tirado Consulting Unavailable Jaylon Hernandez Consulting Unavailab John Salmeron Consulting Unavailable Rosario Ferrer Consulting Unavailable DREAD KOO Attending Unavailable TA HADDAD Primary Care Unavailable DREAD KOO Attending Unavailable ARMOND BAXTER Primary Care Unavailable Allergies Allergy Classification Reported Allergen(s) Allergy Type Date of Onset Reaction(s) Facility (1 source) No Known Medication Allergies; Translations: [No Known Medication Allergies] Propensity to adverse reactions (disorder) [facility] Repository Medications Current Medications Medication Drug Class(es) Dates Sig (Normalized) Sig (Original) [id number] 200 actuat albuterol 0.09 mg/actuat metered dose inhaler (5 sources) beta2-Adrenergic Agonist Start: 09-09-2021 take 1 puff(s) by inhalation four times daily Albuterol Sulfate Active 1 PUFF INHALATION Four times daily September 09, 2021 12:00am amoxicillin 875 mg / clavulanate 125 mg oral tablet (2 sources) Penicillin-class Antibacterial Start: 03-13-2024 take 1 tablet by mouth every twelve hours Amoxicillin-Pot Clavulanate Active 1 TAB PO Every 12 hours 17 04March 13, 2024 12:00am Start: 12-10-2022 take 1 tablet by renetta th every twelve hours Amoxicillin-Pot Clavulanate 875-125 MG 1 tablet Orally every 12 hrs for 10 day(s) Nov, Active aspirin 81 mg delayed release oral tablet (18 sources) Platelet Aggregation Inhibitor, Nonsteroidal Anti-inflammatory Drug Start: 06-18-2023 take 1 tablet by mouth in the morning aspirin 81 MG EC tablet Take 81 mg by mouth in the morning. 06/18/2023 Active Start: 09-10-2021 take 1 tablet by renetta th once daily Aspirin (Children's Aspirin) 81 mg Tablet,Chewable Active 81 MG PO Daily 0 September 10, 2021 12:00am cetirizine (ZyrTEC) 2.5 MG chewable split tablet (2 sources) cetirizine (ZyrT EC) 2.5 MG chewable split tablet Active Cholecalciferol (13 sources) Vitamin D Start: 09-09-2021 take 100 ug by mouth once daily Cholecalciferol (Vitamin D3) Active 100 MCG PO Daily September 09, 2021 12:00am Start: 09-09-2021 take 100 ug by mouth once daily Cholecalciferol (Vitamin D3) Active 100 MCG PO Daily September 08, 2021 11:00pm take 1 tablet by renetta th once daily cholecalciferol (Vitamin D-3) 125 MCG (5000 UT) tablet Take 5,000 Units by mouth Daily Active take 2 capsules by m outh once daily Vitamin D3 50 MCG (2000 UT) Oral Capsule TAKE 2 CAPSULE Daily Quantity: 0 Refills: 0 Ordered: 18-Oct-2021 DO Active docosahexaenoic acid 120 mg / eicosapentaenoic acid 180 mg oral capsule (3 sources) take 1 capsule by mouth once daily omega-3 (Fish Oil) 1000 MG capsule Take 1,000 mg by mouth Daily Active ferrous sulfate 325 mg oral tablet (13 sources) Start: take 1 tablet by mouth once daily Ferrous Sulfate (Iron) 325 mg (65 mg iron) Tablet Active 325 MG PO Daily September 09, 2021 12:00am magnesium oxide 400 mg oral tablet (4 sources) take 1 tablet by mouth once daily magnesium oxide (Mag-Ox) 400 MG tablet Take 400 mg by mouth Daily Active metoprolol tartrate 25 mg oral tablet (18 sources) beta-Adrenergic Melissa Start: take 1 tablet by mouth twice daily Metoprolol Tartrate 25 MG Oral Tablet TAKE 1 TABLET TWICE DAILY. 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 0 10/18/2021 Active Start: 10-17-2021 Metoprolol tar trate 25 mg Tab 12.5 mg = 0.5 tab(s), Oral, BID, Refills(s) 0 Start Date: 10/17/21 Status: Ordered Start: 09-10-2021 take 12.5 mg by mout h twice daily Metoprolol Tartrate Active 12.5 MG PO Twice daily 30 30 September 10, 2021 12:00am Multivitamin preparation (3 sources) Start: 06-18-2023 take 1 tablet by mouth once daily multivitamin 1 tab(s), Oral, Daily, Refill(s) 0 Start Date: 06/18/23 Status: Ordered omega 0-pcq-uuo-fish oil 300 mg-100 mg- 150 mg-1,000 mg capsule (1 source) omega 3-dha-epa- fish oil 300 mg-100 mg- 150 mg-1,000 mg capsule Take by mouth once daily. 0 Active Tyronza-3 Fatty Acids (5 sources) Start: 09-09-2021 take 1500 mg by mouth once daily Tyronza-3 Fatty Acids Active 1500 MG PO Daily September 09, 2021 12:00am Start: 09-09-2021 take 1500 mg by mouth once frederic ly Tyronza-3 Fatty Acids Active 1500 MG PO Daily September 08, 2021 11:00pm predniSONE 20 mg oral tablet (1 source) Start: 12-10-2022 take 1 tablet by mouth every twelve hours predniSONE 20 MG 1 tablet Orally bid for 5 day(s) Nov, Active Ramipril (18 sources) Angiotensin Converting Enzyme Inhibitor Start: 07-14-2023 ramipril Refills(s) 0 Start Date: 07/14/23 Status: Ordered Start: 09-10-2021 take 2.5 mg by mouth once daily at bedtime Ramipril Active 2.5 MG PO Daily at bedtime September 10, 2021 12:00am rosuvastatin calcium 5 mg oral tablet (18 sources) HMG-CoA Reductase Inhibitor Start: 09-10-2021 take 1 tablet by mouth once daily rosuvastatin (Crestor) 5 MG tablet Take 5 mg by mouth Daily 06/18/2023 Active ubidecarenone 100 mg oral capsule (12 sources) Start: 09-10-2021 Coenzyme Q10 (Coq-10) 100 mg Capsule Active 300 MG PO Daily September 10, 2021 9:39am Start: 09-09-2021 End: 09-10-2021 Coenzyme Q10 (Coq-10) 100 mg Capsule Discontinued 100 MG PO Daily September 09, 2021 12:00am September 10, 2021 9:39am take 1 capsule by mo uth once daily CoQ10 100 MG Oral Capsule TAKE 1 CAPSULE Daily Quantity: 0 Refills: 0 Ordered: 18-Oct-2021 DO Active ubidecarenone 100 mg / vitam in e 5 unt oral capsule (6 sources) take 3 capsules by m outh in the morning coenzyme Q-10 100 MG capsule Take 3 capsules by mouth in the morning. Active Completed/Discontinued Medications Medication Drug Class(es) Dates [...] DO Active nitroglycerin 0.4 mg sublingual tablet (16 sources) Nitrate Vasodilator Start: 06-18-2023 Start: 09-10-2021 nitroglycerin (Nitrostat) 0.[address] 0.4 mg under the tongue if needed 06/18/2023 Active Tyronza-3 300 MG CAPS (2 sources) Tyronza-3 300 MG C APS TAKE 1 CAPSULE 4 TIMES DAILY Quantity: 0 Refills: 0 Ordered: 18-Oct-2021 DO Active prasugrel 10 mg oral tablet (9 sources) P2Y12 Platelet Inhibitor Start: 09-11-19 End: 01-18-20 take 1 tablet by mouth once daily Prasugrel (Effient) 10 mg Tablet Discontinued 10 MG PO Daily September 10, 2021 12:00am January 18, 2024 2:55pm 1 ml triamcinolone acetonide 40 mg/ml prefilled syringe (5 sources) Corticosteroid Start: 04-07-20 End: 04-07-20 triamcinolone acetonide (Kenalog-40) injection 40 mg Start: 04-07-2024 End: 04-07-2024 triamcinolone acetonide (Kenalog-40) injection 40 mg Start: 04-07-2024 End: 04-07-2024 inject 40 mg by intramuscular injection once 40 mg, Intramuscular, Once, On Hue 04/07/24 at 0845, For 1 dose Start: 04-07-2024 End: 04-07-2024 inject 40 mg by intramuscular injection once 40 mg, Intramuscular, Once, On [place]ue 04/07/24 at 0845, For 1 dose Start: 12-22-2022 Kenalog-40 Nov, 60 mg turmeric extract 500 mg oral capsule (2 sources) take 1 tablet by renetta th once daily Turmeric 500 MG Oral Tablet Take 1 tablet daily Quantity: 0 Refills: 0 Ordered: 18-Aug-2022 DO Active Vitamin B Complex CAPS (2 sources) Vitamin B Comple x CAPS TAKE 1 CAPSULE Daily Quantity: 0 Refills: 0 Ordered: 18-Aug-2022 DO Active Vitamin E TABS (2 sources) Vitamin E TABS T montez 1 tablet daily Quantity: 0 Refills: 0 Ordered: 18-Aug-2022 DO Active Problems Active Problems Problem Classification Problem Date Documented Date Episodic/Chronic Acute myocardial infarction (20 sources) Myocardial infarction; Translations: [Subendocardial infarction, initial episode of care] Onset: 12-23-2023 Resolved: 12-23-2023 06-18-2023 Chronic Allergic reactions (1 source) Allergic contact dermatitis due to plants, except food Episodic Cardiac dysrhythmias (16 sources) Paroxysmal atrial fibrillation; Translations: [Atrial fibrillation] Onset: 04-20-2023 06-18-2023 Chronic Coronary atherosclerosis and other heart disease (20 sources) Coronary arteriosclerosis; Translations: [Coronary atherosclerosis of unspecified type of vessel, tuscarora or graft] Onset: 09-26-2021 Chronic Coronary atherosclerosis and other heart disease (12 sources) Presence of coronary angioplasty implant and graft; Translations: [Stented coronary artery] Onset: 10-25-2021 06-10-2023 Episodic Disorders of lipid metabolism (14 sources) Mixed hyperlipidemia; Translations: [Mixed hyperlipidemia] Onset: 04-20-2023 06-18-2023 Chronic Heart valve disorders (1 source) Cardiac murmur, unspecified; Translations: [Cardiac murmur, unspecified] Onset: 01-14-2024 Episodic Immunizations and screening for infectious disease (5 sources) Encounter for immunization; Translations: [Contact with or exposure to other viral diseases] Onset: 06-18-2021 Episodic Other circulatory disease (4 sources) Cardiac function test normal; Translations: [Normal cardiac ejection fraction] Episodic Other ear and sense organ disorders (3 sources) Conductive hearing loss, bilateral; Translations: [Conductive hearing loss, bilateral] Onset: 12-23-2023 12-23-2023 Chronic Other nutritional; endocrine; and metabolic disorders (7 sources) Overweight in adulthood with body mass index of 25 or more but less than 30; Translations: [Overweight] 07-14-2023 Episodic Other nutritional; endocrine; and metabolic disorders (3 sources) Overweight 07-14-2023 Episodic Other nutritional; endocrine; and metabolic disorders (2 sources) Body mass index (BMI) 27.0-27.9, adult; Translations: [Body mass index (BMI) 27.0-27.9, adult] Onset: 03-15-2024 Episodic Other upper respiratory disease (8 sources) Allergic rhinitis; Translations: [Allergic rhinitis, unspecified] Onset: 12-23-2023 06-18-2023 Chronic Other upper respiratory infections (1 source) Acute sinusitis, unspecified Episodic Residual codes; unclassified (1 source) Treatment not available; Translations: [Procedure and treatment not carried out for other reasons] Episodic Residual codes; unclassified (2 sources) Never smoked tobacco; Translations: [Other specified health status] Onset: 08-05-2023 08-05-2023 Episodic Unclassified (2 sources) Unknown / UNK(Unknown) Onset: 09-29-2016 Past or Other Problems Problem Classification Problem Date Documented Da te Episodic/Chronic Abdominal hernia (9 sources) Inguinal hernia; Translations: [Unilateral inguinal hernia, without obstruction or gangrene, not specified as recurrent] Onset: 07-14-2023 Resolved: 12-23-2023 Episodic Mood disorders (3 sources) Mood disorders Onset: 12-23-2023 12-23-2023 Nonspecific chest pain (4 sources) Chest pain, unspecified; Translations: [CHEST PAIN UNSPECIFIED] Onset: 09-05-2021 Episodic Other aftercare (1 source) 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; Translations: [[facility] CURRENT DRUG THERAPY] Onset: 09-06-2021 Episodic Other gastrointestinal disorders (4 sources) Pneumatosis cystoides intestinalis; Translations: [Other specified disorders of intestine] Onset: 04-20-2023 04-20-2023 Episodic Other skin disorders (4 sources) Localized swelling, mass and lump, left lower limb; Translations: [LOC SWELL MASS LUMP LT LOWER LIMB] Onset: 03-14-2021 Episodic Phlebitis; thrombophlebitis and thromboembolism (9 sources) Personal history of other venous thrombosis and embolism; Translations: [Acute embolism and thrombosis of unspecified deep veins of left distal lower extremity] Onset: 03-18-2021 Resolved: 12-23-2023 06-18-2023 Episodic Residual codes; unclassified (4 sources) Edema, unspecified; Translations: [EDEMA UNSPECIFIED] Onset: 03-15-2021 Episodic Residual codes; unclassified (2 sources) Other specified health status; Translations: [Other specified health status] Onset: 08-05-2023 Episodic Unclassified (4 sources) Never smoked tobacco; Translations: [Never a smoker] Unclassified (1 source) Onset: 08-05-2023 08-05-2023 Varicose veins of lower extremity (4 sources) Varicose veins of left lower extremity with other complications; Translations: [VARICOSE VEINS OF LEFT LOWER EXTREMITIES W OTH COMPLICATIONS] Onset: 09-29-2016 Episodic Results Test Name Value Interpretation Reference Range Facility No Panel InformationOrdered By: Rashmi Whitaker on 03-13-2024 COVID Antigen (POC) [facility] Activated partial thrombopla stin time (aPTT) in platelet poor plasma by coagulation aOrdered By: Brennon Geller on 01-18-2024 aPTT Coag (PPP) [Time] 55.3 s High 25.1-36.5 [facility] Comment on above: A hematocrit value g reater than 55% may lead to inaccurate results in coagulation testing. Patients having hematocrit values >55% require a special collection tube for coagulation studies. Please contact the laboratory at [phone] for redraw instructions. Partial Thromboplastin Timeo n 01-18-2024 aPTT Coag (Bld) [Time] 55.3 s High 25.1-36.5 [facility] Comment on above: Order Comment: List the anticoagulant: HEPARIN, UNFRACTIONATED Result Comment: A he matocrit value greater than 55% may lead to inaccurate results in coagulation testing. Patients having hematocrit values >55% require a special collection tube for coagulation studies. Please contact the laboratory at [phone] for redraw instructions. PERFORMED BY: [address] [place] [address] PATHOLOGIST RAT CULTURIST OWEN SERRA M.D. Performed By: #### P TT ####[address] Automated basophil %Ordered By: Moon Mcwilliams on 01-17-2024 Basophils/100 WBC (Bld) 0.6 % Normal . [facility] Comment on above: Performed By: #### C BC, PTT, PT ####[address] Automated basophil countOrde red By: Moon Mcwilliams on 01-17-2024 Basophils (Bld) [#/Vol] 0.0 10*3/uL Normal 0.0-0.2 [facility] Comment on above: Result Comment: PERF ORMED BY: [place] [address] PATHOLOGIST RAT CULTURIST OWEN SERRA M.D. Performed By: #### C BC, PTT, PT ####[address] Automated blood monocyte cou ntOrdered By: Moon Mcwilliams on 01-17-2024 Monocytes (Bld) [#/Vol] 0.6 10*3/uL Normal 0.0-0.8 [facility] Comment on above: Performed By: #### C BC, PTT, PT ####[address] Automated eosinophil %Ordere d By: Moon Mcwilliams on 01-17-2024 Eosinophils/100 WBC (Bld) 12.6 % Normal . [facility] Comment on above: Performed By: #### C BC, PTT, PT ####[address] Automated eosinophil countOr dered By: Moon Mcwilliams on 01-17-2024 Eosinophils (Bld) [#/Vol] 0.8 10*3/uL High 0.0-0.45 [facility] Comment on above: Performed By: #### C BC, PTT, PT ####[address] Automated monocyte %Ordered By: Moon Mcwilliams on 01-17-2024 Monocytes/100 WBC (Bld) 10.5 % Normal . [facility] Comment on above: Performed By: #### C BC, PTT, PT ####[address] Automated neutrophil %Ordere d By: Moon Mcwilliams on 01-17-2024 Neutrophils/100 WBC (Bld) 44.6 % Normal . [facility] Comment on above: Performed By: #### C BC, PTT, PT ####[address] Complete Blood Count Auto Di ffon 01-17-2024 Mean Corpuscular HGB Conc 34.2 g/dL Normal 32.5-35.6 [facility] Comment on above: Performed By: #### C BC, PTT, PT ####[address] NRBC% 0.1 /100{WBC} Normal 0-0.5 [facility] Comment on above: Performed By: #### C BC, PTT, PT ####[address] Erythrocyte distribution wid th [Ratio] by Automated countOrdered By: Moon Mcwilliams on 01-17-2024 Erythrocyte distribution width (RBC) [Ratio] 14.5 % Normal 12.0-14.8 [facility] Comment on above: Performed By: #### C BC, PTT, PT ####[address] Erythrocytes [#/volume] in B lood by Automated countOrdered By: Moon Mcwilliams on 01-17-2024 RBC (Bld) [#/Vol] 4.89 10*6/uL Normal 3.90-5.60 [facility] Comment on above: Performed By: #### C BC, PTT, PT ####[address] Hematocrit [Volume Fraction] of Blood by Automated countOrdered By: Moon Mcwilliams on 01-17-2024 Hematocrit (Bld) [Volume fraction] 43.3 % Normal 38.8-50.0 [facility] Comment on above: Performed By: #### C BC, PTT, PT ####[facility] Hemoglobin [Mass/volume] in BloodOrdered By: Moon Mcwilliams on 01-17-2024 Hemoglobin (Bld) [Mass/Vol] 14.8 g/dL Normal 13.0-17.0 [facility] Comment on above: Performed By: #### C BC, PTT, PT ####[place] [id number] [address] INR in Platelet poor plasma by Coagulation assayOrdered By: Moon Mcwilliams on 01-17-2024 INR Coag (PPP) [Relative time] 1.2 {INR} Normal [facility] Comment on above: INR Therapeutic Rang e A) Pre- and Peroperative OAT started two weeks before surgery. NOT HIP SURGERY: 1.5 - 2.5 HIP SURGERY: 2 - 3B) Primary and secondary prevention of venous THROMBOSIS: 2 - 3C) Active venous thrombosis, pulmonary embolismand prevention of recurrent venous thrombosis: 2 - 3D) Prevention of arterial thromboembolismincluding patients with mechanical heart valves: 3 - 4.5 Result Comment: INR Therapeutic Range A) Pre- [...] valves: 3 - 4.5 Performed By: #### C BC, PTT, PT ####[place] [id number] [address] Leukocytes [#/volume] correc linnea for nucleated erythrocytes in Blood by Automated counOrdered By: Moon Mcwilliams on 01-17-2024 WBC corrected for nucl RBC Auto (Bld) [#/Vol] 6.1 10*3/uL 4.1-10.5 [facility] Leukocytes [#/volume] in Blo od by Automated countOrdered By: Moon Mcwilliams on 01-17-2024 WBC (Bld) [#/Vol] 6.1 10*3/uL Normal 4.1-10.5 [facility] Comment on above: Performed By: #### C BC, PTT, PT ####[place] [id number] [address] Lymphocytes [#/volume] in Bl ood by Automated countOrdered By: Moon Mcwilliams on 01-17-2024 Lymphocytes (Bld) [#/Vol] 1.9 10*3/uL Normal 1.00-4.8 [facility] Comment on above: Performed By: #### C BC, PTT, PT ####[address] Lymphocytes/100 leukocytes i n Blood by Automated countOrdered By: Moon Mcwilliams on 01-17-2024 Lymphocytes/100 WBC (Bld) 31.7 % Normal . [facility] Comment on above: Performed By: #### C BC, PTT, PT ####[address] MCH [Entitic mass] by Automa linnea countOrdered By: Moon Mcwilliams on 01-17-2024 MCH (RBC) [Entitic mass] 30.3 pg Normal 27.5-35.2 [facility] Comment on above: Performed By: #### C BC, PTT, PT ####[address] MCHC Auto (RBC) [Mass/Vol]Or dered By: Moon Mcwilliams on 01-17-2024 MCHC (RBC) [Mass/Vol] 34.2 g/dL 32.5-35.6 [facility] MCV [Entitic volume] by Auto mated countOrdered By: Moon Mcwilliams on 01-17-2024 MCV (RBC) [Entitic vol] 88.6 fL Normal 83.5-101 [facility] Comment on above: Performed By: #### C BC, PTT, PT ####[address] Neutrophils [#/volume] in Bl ood by Automated countOrdered By: Moon Mcwilliams on 01-17-2024 Neutrophils (Bld) [#/Vol] 2.7 10*3/uL Normal 1.8-7.7 [facility] Comment on above: Performed By: #### C BC, PTT, PT ####[place] [id number] [facility] Nucleated erythrocytes [Pres ence] in Blood by Automated countOrdered By: Moon Mcwilliams on 01-17-2024 Nucleated RBC Auto Ql (Bld) 0.1 /100{WBC} 0-0.5 [facility] Partial Thromboplastin Timeo n 01-17-2024 aPTT Coag (Bld) [Time] 55.3 s High 25.1-36.5 [facility] e [facility] Comment on above: Order Comment: List the anticoagulant: HEPARIN, UNFRACTIONATED Result Comment: A he matocrit value greater than 55% may lead to inaccurate results in coagulation testing. Patients having hematocrit values >55% require a special collection tube for coagulation studies. Please contact the laboratory at [phone] for redraw instructions. PERFORMED BY: [address] [place] [address] PATHOLOGIST RAT CULTURIST OWEN SERRA M.D. Performed By: #### P TT ####[place] [id number] [facility] aPTT Coag (Bld) [Time] 74.1 s High 25.1-36.5 Th e [facility] Comment on above: Result Comment: A he matocrit value greater than 55% may lead to inaccurate results in coagulation testing. Patients having hematocrit values >55% require a special collection tube for coagulation studies. Please contact the laboratory at [phone] for redraw instructions. PERFORMED BY: [address] [place] [address] PATHOLOGIST RAT CULTURIST OWEN SERRA M.D. Performed By: #### C BC, PTT, PT ####[place] [id number] [facility] Platelet mean volume [Entiti c volume] in Blood by Automated countOrdered By: Moon Mcwilliams on 01-17-2024 Platelet mean volume (Bld) [Entitic vol] 8.8 fL Normal 6.6-10.1 [facility] Comment on above: Performed By: #### C BC, PTT, PT ####[place] [id number] [address] Platelets [#/volume] in Bloo d by Automated countOrdered By: Moon Mcwilliams on 01-17-2024 Platelets (Bld) [#/Vol] 173 10*3/uL Normal 150-450 [facility] Comment on above: Performed By: #### C BC, PTT, PT ####[place] [id number] [address] Prothrombin time (PT)Ordered By: Moon Mcwilliams on 01-17-2024 PT Coag (PPP) [Time] 13.9 s High 9.0-12.9 [facility] Comment on above: A hematocrit value g reater than 55% may lead to inaccurate results in coagulation testing. Patients having hematocrit values >55% require a special collection tube for coagulation studies. Please contact the laboratory at [phone] for redraw instructions. Result Comment: A he matocrit value greater than 55% may lead to inaccurate results in coagulation testing. Patients having hematocrit values >55% require a special collection tube for coagulation studies. Please contact the laboratory at [phone] for redraw instructions. Performed By: #### C BC, PTT, PT ####[address] Troponin I High Sensitivityo n 01-17-2024 Troponin I High Sensitivity 644.4 pg/mL Off scale high 0.0-20.0 [facility] Comment on above: Result Comment: Crit ical Result : Called to and read back by: NATALIE TRAYLOR/Ree at: 01/17/2024 08:49:08 by:[id number] PERFORMED BY: [place] [address] PATHOLOGIST RAT CULTURIST OWEN SERRA M.D. Performed By: #### H S TROP #### [place] [address] [place] Troponin I High Sensitivity 907.3 pg/mL Off scale high 0.0-20.0 [facility] Comment on above: Result Comment: Crit ical Result : Called to and read back by: JOSÉ MIGUEL BARR at: 01/17/2024 06:52:07 by:LETICIA PERFORMED BY: [facility] [address] [place] [address] PATHOLOGIST RAT CULTURIST OWEN SERRA M.D. Performed By: #### H S TROP ####[facility] [address] Troponin I.cardiac [Mass/vol ume] in Serum or Plasma by Detection limit <= 0.01 ng/Ordered By: Roby Reinoso on 01-17-2024 Troponin I.cardiac DL <= 0.01 ng/mL [Mass/Vol] 644.4 pg/mL High 0.0-20.0 [facility] Comment on above: Critical Result : Ca lled to and read back by: NATALIE TRAYLOR/Ree at: 01/17/2024 08:49:08 by:[id number] Activated partial thrombopla stin time (aPTT) in platelet poor plasma by coagulation aOrdered By: Moon Mcwilliams on 01-16-2024 aPTT Coag (PPP) [Time] 30.5 s 25.1-36.5 [facility] Comment on above: A hematocrit value g reater than 55% may lead to inaccurate results in coagulation testing. Patients having hematocrit values >55% require a special collection tube for coagulation studies. Please contact the laboratory at [phone] for redraw instructions. Automated basophil %Ordered By: Moon Mcwilliams on 01-16-2024 Basophils/100 WBC (Bld) 0.5 % Normal . [facility] Comment on above: Performed By: #### P T, CK, CBC, BMP, HS TROP, PTT #### [facility] [address] Automated basophil countOrde red By: Moon Mcwilliams on 01-16-2024 Basophils (Bld) [#/Vol] 0.0 10*3/uL Normal 0.0-0.2 [facility] Comment on above: Result Comment: PERF ORMED BY: [place] [address] PATHOLOGIST RAT CULTURIST OWEN SERRA M.D. Performed By: #### P T, CK, CBC, BMP, HS TROP, PTT #### [address] Automated blood monocyte cou ntOrdered By: Moon Mcwilliams on 01-16-2024 Monocytes (Bld) [#/Vol] 0.6 10*3/uL Normal 0.0-0.8 [facility] Comment on above: Performed By: #### P T, CK, CBC, BMP, HS TROP, PTT #### [address] Automated eosinophil %Ordere d By: Moon Mcwilliams on 01-16-2024 Eosinophils/100 WBC (Bld) 3.9 % Normal . [facility] Comment on above: Performed By: #### P T, CK, CBC, BMP, HS TROP, PTT #### [address] Automated eosinophil countOr dered By: Moon Mcwilliams on 01-16-2024 Eosinophils (Bld) [#/Vol] 0.3 10*3/uL Normal 0.0-0.45 [facility] Comment on above: Performed By: #### P T, CK, CBC, BMP, HS TROP, PTT #### [address] Automated monocyte %Ordered By: Moon Mcwilliams on 01-16-2024 Monocytes/100 WBC (Bld) 8.6 % Normal . [facility] Comment on above: Performed By: #### P T, CK, CBC, BMP, HS TROP, PTT #### [address] Automated neutrophil %Ordere d By: Moon Mcwilliams on 01-16-2024 Neutrophils/100 WBC (Bld) 74.3 % Normal . [facility] Comment on above: Performed By: #### P T, CK, CBC, BMP, HS TROP, PTT #### [facility] [address] [place] [id number] [facility] Basic Metabolic Panelon 12-28 Creatinine Clr Calc Pharmacy 77.59 Normal [facility] Comment on above: Result Comment: PERF ORMED BY: [address] [place] [address] PATHOLOGIST RAT CULTURIST OWEN SERRA M.D. Performed By: #### P T, CK, CBC, BMP, HS TROP, PTT ####[facility] [place] [id number] [facility] GFR/1.73 sq M.predicted MDRD (S/P/Bld) [Vol rate/Area] mL/min/{1.73_m2} Normal [facility] Comment on above: Performed By: #### P T, CK, CBC, BMP, HS TROP, PTT ####[place] [address] [place] [address] [place] Calcium [Mass/volume] in Ser um or PlasmaOrdered By: Moon Mcwilliams on 01-16-2024 Calcium [Mass/Vol] 9.3 mg/dL Normal 8.6-10.3 [facility] Comment on above: Performed By: #### P T, CK, CBC, BMP, HS TROP, PTT ####[place] [id number] [place] Carbon dioxide, total [Moles /volume] in Serum or PlasmaOrdered By: Moon Mcwilliams on 01-16-2024 CO2 [Moles/Vol] 29.6 mmol/L Normal 21.0-31.0 [facility] Comment on above: Performed By: #### P T, CK, CBC, BMP, HS TROP, PTT ####[place] [id number] [place] Chloride [Moles/volume] in S tri or PlasmaOrdered By: Moon Mcwilliams on 01-16-2024 Chloride [Moles/Vol] 106 mmol/L Normal 98-107 [facility] Comment on above: Performed By: #### P T, CK, CBC, BMP, HS TROP, PTT ####[facility] Complete Blood Count Auto Di ffon 01-16-2024 Basophils (Bld) [#/Vol] 0.0 10*3/uL Normal 0.0-0.2 [facility] Comment on above: Result Comment: PERF ORMED BY: [place] [address] PATHOLOGIST RAT CULTURIST OWEN SERRA M.D. Performed By: #### P TT, PT, CBC #### [facility] [address] Basophils/100 WBC (Bld) 0.6 % Normal . [facility] Comment on above: Performed By: #### P TT, PT, CBC #### [facility] [address] Eosinophils (Bld) [#/Vol] 0.8 10*3/uL High 0.0-0.45 [facility] Comment on above: Performed By: #### P TT, PT, CBC #### [address] Eosinophils/100 WBC (Bld) 12.9 % Normal . [facility] Comment on above: Performed By: #### P TT, PT, CBC #### [facility] [address] Erythrocyte distribution width (RBC) [Ratio] 14.0 % Normal 12.0-14.8 [facility] Comment on above: Performed By: #### P TT, PT, CBC #### [facility] [address] [place] [address] [place] Hematocrit (Bld) [Volume fraction] 43.2 % Normal 38.8-50.0 [facility] Comment on above: Performed By: #### P TT, PT, CBC #### [facility] [address] Hemoglobin (Bld) [Mass/Vol] 14.7 g/dL Normal 13.0-17.0 [facility] Comment on above: Performed By: #### P TT, PT, CBC #### [address] Lymphocytes (Bld) [#/Vol] 1.8 10*3/uL Normal 1.00-4.8 [facility] Comment on above: Performed By: #### P TT, PT, CBC #### [address] Lymphocytes/100 WBC (Bld) 30.8 % Normal . [facility] Comment on above: Performed By: #### P TT, PT, CBC #### [place] [address] [place] MCH (RBC) [Entitic mass] 30.2 pg Normal 27.5-35.2 [facility] Comment on above: Performed By: #### P TT, PT, CBC #### [address] MCV (RBC) [Entitic vol] 88.8 fL Normal 83.5-101 [facility] Comment on above: Performed By: #### P TT, PT, CBC #### [address] Mean Corpuscular HGB Conc 34.1 g/dL Normal 32.5-35.6 [facility] Comment on above: Performed By: #### P TT, PT, CBC #### [address] Monocytes (Bld) [#/Vol] 0.7 10*3/uL Normal 0.0-0.8 [facility] Comment on above: Performed By: #### P TT, PT, CBC #### [place] [address] [place] Monocytes/100 WBC (Bld) 16.95 % Normal 0.00-20.00 [facility] Comment on above: Performed By: #### P TT, PT, CBC #### [place] [address] [place] Monocytes/100 WBC (Bld) 11.0 % Normal . [facility] Comment on above: Performed By: #### P TT, PT, CBC #### [facility] [address] [place] [address] [place] Neutrophils (Bld) [#/Vol] 2.7 10*3/uL Normal 1.8-7.7 [facility] Comment on above: Performed By: #### P TT, PT, CBC #### [facility] [address] Neutrophils/100 WBC (Bld) 44.7 % Normal . [facility] Comment on above: Performed By: #### P TT, PT, CBC #### [address] NRBC% 0.1 /100{WBC} Normal 0-0.5 [facility] Comment on above: Performed By: #### P TT, PT, CBC #### [address] Platelet mean volume (Bld) [Entitic vol] 8.6 fL Normal 6.6-10.1 [facility] Comment on above: Performed By: #### P TT, PT, CBC #### [place] [address] [place] Platelets (Bld) [#/Vol] 181 10*3/uL Normal 150-450 [facility] Comment on above: Performed By: #### P TT, PT, CBC #### [address] RBC (Bld) [#/Vol] 4.87 10*6/uL Normal 3.90-5.60 [facility] Comment on above: Performed By: #### P TT, PT, CBC #### [place] [address] [place] WBC (Bld) [#/Vol] 6.0 10*3/uL Normal 4.1-10.5 [facility] Comment on above: Performed By: #### P TT, PT, CBC #### [address] Mean Corpuscular HGB Conc 34.3 g/dL Normal 32.5-35.6 [facility] Comment on above: Performed By: #### P T, CK, CBC, BMP, HS TROP, PTT #### [place] [address] [place] Monocytes/100 WBC (Bld) 15.19 % Normal 0.00-20.00 [facility] Comment on above: Performed By: #### P T, CK, CBC, BMP, HS TROP, PTT #### [address] NRBC% 0.1 /100{WBC} Normal 0-0.5 [facility] Comment on above: Performed By: #### P T, CK, CBC, BMP, HS TROP, PTT #### [address] Creatine kinase [Enzymatic a ctivity/volume] in Serum or PlasmaOrdered By: Moon Mcwilliams on 01-16-2024 CK [Catalytic activity/Vol] 150 U/L Normal 30-223 [facility] Comment on above: Performed By: #### P T, CK, CBC, BMP, HS TROP, PTT ####[address] Creatinine [Mass/volume] in Serum or PlasmaOrdered By: Moon Mcwilliams on 01-16-2024 Creatinine [Mass/Vol] 0.98 mg/dL Normal 0.70-1.30 [facility] Comment on above: Performed By: #### P T, CK, CBC, BMP, HS TROP, PTT ####[address] ECG 12 lead ECGon 01-16-2024 ECG 12 lead ECG [facility] [address] [place] [address] [place] [address] Electrocardiograph Report Signed Patient: Jace Mata MR#: [id number] : 1960 Acct:[id number] Age/Sex: 63 / M ADM Date: 01/16/24 Loc: Room: [address] [place] [address] Type: ADM IN Attending Dr: Roby Reinoso MD Ordering Provider: Moon Mcwilliams MD Date of Service: 01/16/24 ECG/ECG 12 lead ECG: Chest Pain Copies to: Test Reason : Blood Pressure : */* mmHG Vent. Rate : 72 BPM Atrial Rate : 72 BPM P-R Int : 182 ms QRS Dur : 90 ms QT Int : 384 ms P-R-T Axes : 61 53 59 degrees QTcB Int : 420 ms Normal sinus rhythm Normal ECG When compared with ECG of 10-Sep-2021 07:33, T wave inversion no longer evident in Inferior leads Confirmed by MOON MCWILLIAMS MD ([id number]) on 01/16/2024 7:27:55 PM Referred By: Electronically Signed By: MOON MCWILLIAMS MD Transcribed By: MUS Signed By Moon Mcwilliams MD 12/28 Normal [facility] Erythrocyte distribution wid th [Ratio] by Automated countOrdered By: Moon Mcwilliams on 01-16-2024 Erythrocyte distribution width (RBC) [Ratio] 13.9 % Normal 12.0-14.8 [facility] Comment on above: Performed By: #### P T, CK, CBC, BMP, HS TROP, PTT #### [facility] [address] Erythrocytes [#/volume] in B lood by Automated countOrdered By: Moon Mcwilliams on 01-16-2024 RBC (Bld) [#/Vol] 5.05 10*6/uL Normal 3.90-5.60 [facility] Comment on above: Performed By: #### P T, CK, CBC, BMP, HS TROP, PTT #### [facility] [address] Glucose [Mass/volume] in Ser um or PlasmaOrdered By: Moon Mcwilliams on 01-16-2024 Glucose [Mass/Vol] 94 mg/dL Normal 70-100 [facility] Comment on above: ADA recommended refe rence rangeRandom Glucose Reference Range is dependent on time and content of last meal. Glucose of more than 200 mg/dL in a nonstressed, ambulatory subject supports the diagnosis of Diabetes Mellitus. Result Comment: [place] om Glucose Reference Range is dependent on time and content of last meal. Glucose of more than 200 mg/dL in a nonstressed, ambulatory subject supports the diagnosis of Diabetes Mellitus. ADA recommended reference range Performed By: #### P T, CK, CBC, BMP, HS TROP, PTT ####[facility] Hematocrit [Volume Fraction] of Blood by Automated countOrdered By: Moon Mcwilliams on 01-16-2024 Hematocrit (Bld) [Volume fraction] 45.1 % Normal 38.8-50.0 [facility] Comment on above: Performed By: #### P T, CK, CBC, BMP, HS TROP, PTT #### [facility] [address] Hemoglobin [Mass/volume] in BloodOrdered By: Moon Mcwilliams on 01-16-2024 Hemoglobin (Bld) [Mass/Vol] 15.5 g/dL Normal 13.0-17.0 [facility] Comment on above: Performed By: #### P T, CK, CBC, BMP, HS TROP, PTT #### [facility] [address] INR in Platelet poor plasma by Coagulation assayOrdered By: Moon Mcwilliams on 01-16-2024 INR Coag (PPP) [Relative time] 1.1 {INR} Normal [facility] Comment on above: INR Therapeutic Rang e A) Pre- and Peroperative OAT started two weeks before surgery. NOT HIP SURGERY: 1.5 - 2.5 HIP SURGERY: 2 - 3B) Primary and secondary prevention of venous THROMBOSIS: 2 - 3C) Active venous thrombosis, pulmonary embolismand prevention of recurrent venous thrombosis: 2 - 3D) Prevention of arterial thromboembolismincluding patients with mechanical heart valves: 3 - 4.5 Result Comment: INR Therapeutic Range A) Pre- [...] valves: 3 - 4.5 Performed By: #### P T, CK, CBC, BMP, HS TROP, PTT ####[facility] Leukocytes [#/volume] correc linnea for nucleated erythrocytes in Blood by Automated counOrdered By: Moon Mcwilliams on 01-16-2024 WBC corrected for nucl RBC Auto (Bld) [#/Vol] 7.5 10*3/uL 4.1-10.5 [facility] Leukocytes [#/volume] in Blo od by Automated countOrdered By: Moon Mcwilliams on 01-16-2024 WBC (Bld) [#/Vol] 7.5 10*3/uL Normal 4.1-10.5 [facility] Comment on above: Performed By: #### P T, CK, CBC, BMP, HS TROP, PTT #### [facility] [address] Lymphocytes [#/volume] in Bl ood by Automated countOrdered By: Moon Mcwilliams on 01-16-2024 Lymphocytes (Bld) [#/Vol] 1.0 10*3/uL Normal 1.00-4.8 [facility] Comment on above: Performed By: #### P T, CK, CBC, BMP, HS TROP, PTT #### [facility] [address] Lymphocytes/100 leukocytes i n Blood by Automated countOrdered By: Moon Mcwilliams on 01-16-2024 Lymphocytes/100 WBC (Bld) 12.7 % Normal . [facility] Comment on above: Performed By: #### P T, CK, CBC, BMP, HS TROP, PTT #### [facility] [address] MCH [Entitic mass] by [place] linnea countOrdered By: Moon Mcwilliams on 01-16-2024 MCH (RBC) [Entitic mass] 30.6 pg Normal 27.5-35.2 [facility] Comment on above: Performed By: #### P T, CK, CBC, BMP, HS TROP, PTT #### [facility] [address] [place] [address] MCHC Auto (RBC) [Mass/Vol]Or dered By: Moon Mcwilliams on 01-16-2024 MCHC (RBC) [Mass/Vol] 34.3 g/dL 32.5-35.6 [facility] MCV [Entitic volume] by Auto mated countOrdered By: Moon Mcwilliams on 01-16-2024 MCV (RBC) [Entitic vol] 89.2 fL Normal 83.5-101 [facility] Comment on above: Performed By: #### P T, CK, CBC, BMP, HS TROP, PTT #### [facility] [address] [place] [address] [place] Monocyte distribution width [Entitic volume] in Blood by AutomatedOrdered By: Moon Mcwilliams on 01-16-2024 Monocyte distribution width Auto (Bld) [Entitic vol] 16.95 % 0.00-20.00 [facility] Monocyte distribution width Auto (Bld) [Entitic vol] 15.19 % 0.00-20.00 [facility] Neutrophils [#/volume] in Bl ood by Automated countOrdered By: Moon Mcwilliams on 01-16-2024 Neutrophils (Bld) [#/Vol] 5.6 10*3/uL Normal 1.8-7.7 [facility] Comment on above: Performed By: #### P T, CK, CBC, BMP, HS TROP, PTT #### [facility] [address] No Panel InformationOrdered By: Moon Mcwilliams on 01-16-2024 Estimated GFR (CKD-EPI) > 60.0 mL/Min [facility] Creatinine Clearance (Chem 77.59 [facility] Nucleated erythrocytes [Pres ence] in Blood by Automated countOrdered By: Moon Mcwilliams on 01-16-2024 Nucleated RBC Auto Ql (Bld) 0.1 /100{WBC} 0-0.5 [facility] Partial Thromboplastin Timeo n 01-16-2024 aPTT Coag (Bld) [Time] 53.3 s High 25.1-36.5 Th e [facility] Comment on above: Result Comment: A he matocrit value greater than 55% may lead to inaccurate results in coagulation testing. Patients having hematocrit values >55% require a special collection tube for coagulation studies. Please contact the laboratory at [phone] for redraw instructions. PERFORMED BY: [facility] [address] [facility] [place] [phone] PATHOLOGIST RAT CULTURIST OWEN SERRA M.D. Performed By: #### P TT, PT, CBC #### [facility] [address] [place] [address] aPTT Coag (Bld) [Time] 30.5 s Normal 25.1-36.5 Th e [facility] Comment on above: Result Comment: A he matocrit value greater than 55% may lead to inaccurate results in coagulation testing. Patients having hematocrit values >55% require a special collection tube for coagulation studies. Please contact the laboratory at [phone] for redraw instructions. PERFORMED BY: [address] [place] [address] PATHOLOGIST RAT CULTURIST OWEN SERRA M.D. Performed By: #### P T, CK, CBC, BMP, HS TROP, PTT ####[address] Platelet mean volume [Entiti c volume] in Blood by Automated countOrdered By: Moon Mcwilliams on 01-16-2024 Platelet mean volume (Bld) [Entitic vol] 8.7 fL Normal 6.6-10.1 [facility] Comment on above: Performed By: #### P T, CK, CBC, BMP, HS TROP, PTT #### [address] Platelets [#/volume] in Bloo d by Automated countOrdered By: Moon Mcwilliams on 01-16-2024 Platelets (Bld) [#/Vol] 182 10*3/uL Normal 150-450 [facility] Comment on above: Performed By: #### P T, CK, CBC, BMP, HS TROP, PTT #### [facility] [address] [place] [address] Potassium [Moles/volume] in Serum or PlasmaOrdered By: Moon Mcwilliams on 01-16-2024 Potassium [Moles/Vol] 4.2 mmol/L Normal 3.5-5.1 [facility] Comment on above: Performed By: #### P T, CK, CBC, BMP, HS TROP, PTT ####[facility] [place] [id number] [facility] Prothrombin Time INRon 01-15 INR Coag (PPP) [Relative time] 1.2 {INR} Normal [facility] Comment on above: Result Comment: INR Therapeutic [...] valves: 3 - 4.5 Performed By: #### P TT, PT, CBC #### [facility] [address] [place] [id number] [facility] PT Coag (PPP) [Time] 13.8 s High 9.0-12.9 [facility] Comment on above: Result Comment: A he matocrit value greater than 55% may lead to inaccurate results in coagulation testing. Patients having hematocrit values >55% require a special collection tube for coagulation studies. Please contact the laboratory at [phone] for redraw instructions. Performed By: #### P TT, PT, CBC #### [facility] [address] [place] [address] [facility] Prothrombin time (PT)Ordered By: Moon Mcwilliams on 01-16-2024 PT Coag (PPP) [Time] 13.2 s High 9.0-12.9 [facility] Comment on above: A hematocrit value g reater than 55% may lead to inaccurate results in coagulation testing. Patients having hematocrit values >55% require a special collection tube for coagulation studies. Please contact the laboratory at [phone] for redraw instructions. Result Comment: A he matocrit value greater than 55% may lead to inaccurate results in coagulation testing. Patients having hematocrit values >55% require a special collection tube for coagulation studies. Please contact the laboratory at [phone] for redraw instructions. Performed By: #### P T, CK, CBC, BMP, HS TROP, PTT ####[facility] [place] [id number] [facility] Serum or plasma anion gap de terminationOrdered By: Moon Mcwilliams on 01-16-2024 Anion gap [Moles/Vol] 8.6 mmol/L Normal 6.0-15.0 [facility] Comment on above: Performed By: #### P T, CK, CBC, BMP, HS TROP, PTT ####[place] [id number] [facility] Sodium [Moles/volume] in Ser um or PlasmaOrdered By: Moon Mcwilliams on 01-16-2024 Sodium [Moles/Vol] 140 mmol/L Normal 136-145 [facility] Comment on above: Performed By: #### P T, CK, CBC, BMP, HS TROP, PTT ####[address] Troponin I High Sensitivityo n 01-16-2024 Troponin I High Sensitivity 146.2 pg/mL Off scale high 0.0-20.0 [facility] Comment on above: Result Comment: Crit ical Result : Called to and read back by: NORMA WALL/ALICIA at: 01/16/2024 15:41:56 by:[id number] PERFORMED BY: [place] [address] PATHOLOGIST RAT CULTURIST OWEN SERRA M.D. Performed By: #### H S TROP #### [facility] [address] [place] [address] Troponin I High Sensitivity 16.6 pg/mL Normal 0.0-20.0 [facility] Comment on above: Result Comment: PERF ORMED BY: [place] [address] PATHOLOGIST RAT CULTURIST OWEN SERRA M.D. Performed By: #### P T, CK, CBC, BMP, HS TROP, PTT ####[place] [id number] [facility] Troponin I.cardiac [Mass/vol ume] in Serum or Plasma by Detection limit <= 0.01 ng/Ordered By: Moon Mcwilliams on 01-16-2024 Troponin I.cardiac DL <= 0.01 ng/mL [Mass/Vol] 146.2 pg/mL High 0.0-20.0 [facility] Comment on above: Critical Result : Ca lled to and read back by: NORMA WALL/ER at: 01/16/2024 15:41:56 by:[id number] Urea nitrogen [Mass/volume] in Serum or PlasmaOrdered By: Moon Mcwilliams on 01-16-2024 Urea nitrogen [Mass/Vol] 22 mg/dL Normal 7-25 [facility] Comment on above: Performed By: #### P T, CK, CBC, BMP, HS TROP, PTT ####[facility] [id number] [place] [id number] [facility] XR chest 1V portableon 01-15 XR chest 1[place] [address] XRay Report Signed Patient: Jace Mata MR#: [id number] : 1960 Acct:[id number] Age/Sex: 63 / M ADM Date: 01/16/24 Loc: ER Room: Type: [facility] ER Attending Dr: Copies to: Moon Mcwilliams MD Ordering Provider: Moon Mcwilliams MD Date of Service: 01/16/24 XR/XR chest 1V portable: Chest Pain Plain film chest Single view HISTORY: Midsternal chest pain COMPARISON: 09/09/21 FINDINGS: SUPPORT DEVICES: None POSTSURGICAL CHANGES: None HEART: Within normal limits PULMONARY PADMINI: Within normal limits MEDIASTINUM: Unremarkable LUNGS AND PLEURA: No acute lung process, pleural effusion or pneumothorax identified. BONY STRUCTURES: Intact ADDITIONAL FINDINGS None XR/XR chest 1V portable IMPRESSION: No acute process. Impression dictated by: Kieran Webber M.D.01/16/2024 11:34 AM Dictation Location: [place] [address] Transcribed By: [facility] 01/16/24 1134 Dictated By: Kieran Webber DO 01/16/24 1130 Signed By: 01/16/24 1134 Normal [facility] ECH echo transthoracicon ECH echo transthoracic [facility] [address] Echocardiogram Signed Patient: Jace Mata MR#: [id number] : 1960 Acct:[id number] Age/Sex: 63 / M ADM Date: 01/14/24 Loc: Room: Type: [facility] Attending Dr: Armond Baxter DO Ordering Provider: Armond Baxter DO Date of Service: 01/14/24/ ECH/ECH echo transthoracic: MURMUR Copies to: Armond Onofre MD Weight: 180 lb Performed By: MARIE Cutler BSA: 2.0 m2 BP: 142/83 mmHg HR: 52 Reason For Study: MURMUR History: HTN, HLD, CAD, Stents, A-Fib., Ablation, Family history: CAD Interpretation Summary The left ventricular size, thickness and function are normal Ejection Fraction = 60-65%. The left atrium appears mildly dilated. Trivial valvular aortic stenosis. There is trace mitral regurgitation. There is trace tricuspid regurgitation. Procedure/Quality: A two-dimensional transthoracic echocardiogram with color flow and Doppler was performed. The study was technically good in quality. Left Ventricle: The left ventricular size, thickness and function are normal. Upper septal hypertrophy (sigmoid septum), normal variant. Ejection Fraction = 60-65%. No left ventricular thrombus or mass is seen. Left Atrium: The left atrium appears mildly dilated. The atrial septum appears normal. Right Atrium: The right atrium appears normal in size. Right Ventricle: The right ventricular size, thickness and function are normal. Aortic Valve: The aortic valve is mildly sclerotic. Trivial valvular aortic stenosis. Mitral Valve: The mitral valve is normal. There is trace mitral regurgitation. Tricuspid Valve: The tricuspid valve is normal. There is trace tricuspid regurgitation. Pulmonic Valve: The pulmonic valve is not well visualized. Arteries: Mild aortic root dilatation. Borderline dilated ascending aorta. Pericardium/Pleura: No pericardial effusion seen. There is no pleural effusion. IVC/Hepatic Veins: Borderline dilated inferior vena cava. Measurements with Normals IVSd: 1.6 cm (0.7-1.1 cm)LVIDd: 4.4 cm (3.7-5.4 cm) LVPWd: 1.1 cm (0.7-1.1 cm)LVIDs: 2.3 cm (2.3-3.6 cm) LA dimension: 4.6 cm (2.3-4.0 cm)Ao root diam: 3.7 cm(2.0-3.6 cm) asc Aorta Diam: 3.5 cm(2.1-3.4cm) Doppler with Normals RVSP(TR): 42.5 mmHg (18-35mmHg) LV V1 max: 132.8 cm/sec (0.7-1.7m/s)MV E max fabian: 66.2 cm/sec(0.8-1.3m/s) MV A max fabian: 45.2 cm/sec(0.0-0.0m/s) MV E/A: 1.5 (<1.5) MMode/2D Measurements Calculations RVDd: 3.7 cm FS: 47.5 % Ao root area: LVOT diam: 2.0 cm TAPSE: 2.6 cm EDV(Teich): 10.9 cm2 LVOT area: 3.2 cm2 RV S Fabian: 88.4 ml 11.3 cm/sec ESV(Teich): 18.5 ml EF(Teich): 79.1 % __ LVLd ap4: 7.2 cm SV(MOD-sp4): LAV(MOD-sp4): LA A2 area: 22.0 cm2 EDV(MOD-sp4): 54.7 ml 55.9 ml 76.0 ml LAV(MOD-sp2): LA A4 area: 20.3 cm2 LVLs ap4: 5.4 cm 70.8 ml LA length (vol): ESV(MOD-sp4): 5.9 cm 21.3 ml LA vol: 64.1 ml EF(MOD-sp4): 72.0 % LA vol index: 32.2 ml/m2 Doppler Measurements Calculations MV dec time: MV max PG: E/E' lat: 4.6 MV dec slope: 0.36 sec 19.0 mmHg E/E' med: 6.3 181.5 cm/sec2 __ Ao V2 max: LV V1 max PG: MR max fabian: TV max P.0 mmHg 160.0 cm/sec 7.1 mmHg 218.3 cm/sec Ao max PG: LV V1 mean PG: MR max P.2 mmHg 3.6 mmHg 19.1 mmHg Ao mean PG: LV V1 mean: 6.3 mmHg 86.4 cm/sec Ao V2 mean: LV V1 VTI: 29.9 cm 118.2 cm/sec Ao V2 VTI: 38.4 cm LEMUEL(I,D): 2.5 cm2 LEMUEL(V,D): 2.6 cm2 __ TR max fabian: 285.1 cm/sec TR max P.5 mmHg RAP systole: 10.0 mmHg Transcribed By: SCV Performed At: 01/14/24 1447 Signed By: Dread Perez MD 01/14/24 1832 Normal [facility] Ambulatory Visit Summaryon 0 09-01-2023 Ambulatory Visit Summary JUDITH MATA :1960 Visit Date:09/01/2023 Ambulatory Visit Instructions Your Diagnosis Reducible left inguinal hernia Your Care Team Attending Physician - DALE AWAN, Moon Berger Primary Care Physician - TA HADDAD JR, DO This Is Your Medications List Contact prescribing physician if questions or concerns aspirin (aspirin 81 mg Oral EC Tab) metoprolol (Metoprolol tartrate 25 mg Tab) multivitamin nitroglycerin (NitroStat 0.4 mg Tab) ramipril rosuvastatin (rosuvastatin 5 mg Tab) Procedures Performed Repair of left inguinal hernia (08/12/2023), Angioplasty of blood vessel, Cardiac catheterization, Catheter ablation of arrhythmogenic focus, Coronary artery stent, Myringoplasty, Repair of right inguinal hernia, Tonsillectomy. Medications What How Much When Instructions Unchanged [...] Contact prescribing physician if questions or concerns Allergies No Known Allergies No Known Medication Allergies Problems Ongoing - Any problem that you are currently receiving treatment for. Allergic rhinitis BMI 27.0-27.9,adult Coronary arteriosclerosis History of DVT (deep vein thrombosis) Mixed hyperlipidemia NSTEMI (non-ST elevated myocardial infarction) Overweight Paroxysmal atrial fibrillation Reducible left inguinal hernia Patient Survey You may receive a survey via text or e-mail asking about your office visit. Please share your experience with us by completing your survey. We appreciate your feedback and thank you for choosing us for your care. Ivonne Howell [facility] General Surgery Office/Clini c Noteon 09-01-2023 General Surgery Office/Clinic Note Chief Complaint post operative follow up HPI Staff 20 day post operative follow up post left inguinal hernia repair. Denies discomfort, no use of pain medication. Denies bleeding or drainage. Bowels moving well. History of Present Illness 3 weeks s/p LIHR with mesh; doing well, mild soreness, no drainage, no pain medications; no strenuous activities. Review of Systems ROS - Provider Constitutional: no fever, no [...] and are negative or noncontributory. Physical Exam abd: soft, normal bs, nontender, nondistended, incision without erythema or drainage; no ecchymoses, minimal induration. Assessment/Plan 1. Reducible left inguinal hernia (K40.90: Unilateral inguinal hernia, without obstruction or gangrene, not specified as recurrent) doing well, gradually resume regular activities in 1 week; call with problems/questions. Follow-up No qualifying data available Problem List/Past Medical History Ongoing Allergic rhinitis BMI 27.0-27.9,adult Coronary arteriosclerosis History of DVT (deep vein thrombosis) Mixed hyperlipidemia NSTEMI (non-ST elevated myocardial infarction) Overweight Paroxysmal atrial fibrillation Reducible left inguinal hernia Historical No qualifying data Procedure/Surgical History Repair of left inguinal hernia (08/12/2023), Angioplasty of blood vessel, Cardiac catheterization, Catheter [...] Never Smokeless Tobacco Use:., 07/14/2023 Family History Esophageal cancer: Father. Heart disease: Father. Primary malignant neoplasm of female breast: Mother. Uterine cancer: Mother. Immunizations Vaccine Date Status Comments influenza virus vaccine, inactivated - Not Given Patient Refuses SARS-CoV-2 (COVID-19) mRNA BNT-162b2 vax 06/18/2021 Recorded SARS-CoV-2 (COVID-19) Ad26 vaccine 09/03/2020 Recorded Normal [facility] Comment on above: Result Comment: Elec tronically Signed By: DALE AWAN, Moon Berger\.br\Date and Time Signed: 09/01/23 14:48 EST Ambulatory Visit Summaryon 0 08-19-2023 Ambulatory Visit Summary JUDITH MATA :1960 Visit Date:08/19/2023 Ambulatory Visit Instructions Your Care Team Attending Physician - DALE AWAN, Moon Berger Primary Care Physician - TA HADDAD JR, DO This Is Your Medications List aspirin (aspirin 81 mg Oral EC Tab) metoprolol (Metoprolol tartrate 25 mg Tab) multivitamin nitroglycerin (NitroStat 0.4 mg Tab) ramipril rosuvastatin (rosuvastatin 5 mg Tab) Procedures Performed Repair of left inguinal hernia (08/12/2023), Angioplasty of blood vessel, Cardiac catheterization, Catheter ablation of arrhythmogenic focus, Coronary artery stent, Myringoplasty, Repair of right inguinal hernia, Tonsillectomy. Medications What How Much When Instructions Unchanged aspirin (aspirin 81 mg Oral EC Tab) 1 Tablets By Mouth Every day Unchanged metoprolol (Metoprolol tartrate 25 mg Tab) 0.5 Tablets By Mouth 2 times a day Unchanged multivitamin 1 Tablets By Mouth Every day Unchanged nitroglycerin (NitroStat 0.4 mg Tab) 0.4 Unknown, sublingual, 0 Refill(s), Place 1 tablet (0.4 mg) under the tongue every 5 minutes if needed. Unchanged ramipril Unchanged rosuvastatin (rosuvastatin 5 mg Tab) 1 Tablets By Mouth Once a day (at bedtime) Allergies No Known Allergies No Known Medication Allergies Problems Ongoing - Any problem that you are currently receiving treatment for. Allergic rhinitis BMI 27.0-27.9,adult Coronary arteriosclerosis History of DVT (deep vein thrombosis) Mixed hyperlipidemia NSTEMI (non-ST elevated myocardial infarction) Overweight Paroxysmal atrial fibrillation Reducible left inguinal hernia Patient Survey You may receive a survey via text or e-mail asking about your office visit. Please share your experience with us by completing your survey. We appreciate your feedback and thank you for choosing us for your care. Normal [facility] General Surgery Office/Clini c Noteon 08-19-2023 General Surgery Office/Clinic Note Chief Complaint post operative follow up HPI Staff 7 day post operative follow up post left inguinal hernia repair. Denies pain, scant use of Advil. Denies bleeding or drainage. Bowels moving well. History of Present Illness 1 week s/p LIHR with mesh for indirect inguinal hernia; doing well, denies pain, taking occasional Advil, no drainage from incision; normal bms, voiding well, no strenuous activities. Review of Systems ROS - Provider Constitutional: no fever, no [...] and are negative or noncontributory. Physical Exam skin: incision healing well, no erythema or drainage, no ecchymosis; minimal induration Assessment/Plan 1. Reducible left inguinal hernia (K40.90: Unilateral inguinal hernia, without obstruction or gangrene, not specified as recurrent) doing well; continue no lifting > 10 lbs for 3 weeks, f/u in 2 weeks, call sooner if problems/questions. Follow-up No qualifying data available Problem List/Past Medical History Ongoing Allergic rhinitis BMI 27.0-27.9,adult Coronary arteriosclerosis History of DVT (deep vein thrombosis) Mixed hyperlipidemia NSTEMI (non-ST elevated myocardial infarction) Overweight Paroxysmal atrial fibrillation Reducible left inguinal hernia Historical No qualifying data Procedure/Surgical History Repair of left inguinal hernia (08/12/2023), Angioplasty of blood vessel, Cardiac catheterization, Catheter [...] Never Smokeless Tobacco Use:., 07/14/2023 Family History Esophageal cancer: Father. Heart disease: Father. Primary malignant neoplasm of female breast: Mother. Uterine cancer: Mother. Immunizations Vaccine Date Status Comments influenza virus vaccine, inactivated - Not Given Patient Refuses SARS-CoV-2 (COVID-19) mRNA BNT-162b2 vax 06/18/2021 Recorded SARS-CoV-2 (COVID-19) Ad26 vaccine 09/03/2020 Recorded Normal [facility] Comment on above: Result Comment: Elec tronically Signed By: DALE AWAN, Moon Mckeon\Date and Time Signed: 08/19/23 14:11 EST Operative Reporton Operative Report [id number]#1.00TIFF Normal [facility] Pathology Noteon 08-17-2023 Pathology Note [id number]#1.00TIFF Normal [facility] Trevin 08-12-2023 L Specimen: [id number] Received: 08/12/23-1303 Status: ASHA Dunne Num: [id number] Spec Type: Surgical Subm Dr: Moon Hunter MD FACS Tissues: A Hernia Sac (LT INGU VIOLETTA) Procedures: HE, Gross/Micro L2 Age/ Patient Sex Location Account Attending Physician Jace Mata 63/M [facility] [id number] Moon Hunter MD FACS SPEC NUM: [id number] RECD: 08/12/23 STATUS: ASHA DUNNE NUM: [id number] SUNNY: 08/12/23-[address]: Moon Hunter MD FACS ENTERED: 08/12/23 [facility]: Jensen Lopez SPEC TYPE: Surgical DEPT: MARK ALDRICH ENTERED BY: [id number] RECV BY: [id number] ORDERED: HE, Gross/Micro L2 ORDERED: HE, Gross/Micro L2 Pathological Diagnosis Hernia Sac, Left Inguinal, Resection: Features Consistent With Hernia Sac. Mature Fibrofatty Tissue, Consistent With Lipoma. Clinical Information Left inguinal hernia Gross Description Received in formalin labeled with the patient's name, date of and (1) left hernia sac (2) left cord lipoma are 3 soft tissue fragments together aggregating 6 x 6 x 1.5 cm. The 2 smaller fragments are more fibromembranous with a small amount of attached adipose tissue and are consistent with hernia sac. The largest fragment (6 x 4.5 cm) consist predominately of yellow lobulated adipose tissue with overlying membranous tissue. There are no firm or suspicious foci identified upon sectioning. Computer [employer] Information Director sections are submitted in 1 cassette as follows: A1 - 1 section from each fragment CPT Codes 09890 Specimen: [id number] Received: 08/12/23-1303 Status: ASHA Dunne Num: [id number] Spec Type: Surgical Subm Dr: Moon Hunter MD FACS Tissues: A Hernia Sac (LT INGU VIOLETTA) Procedures: Benny OSORIO/Zulay L2 Patient: Jace Mata [id number] (Continued) Signed (signature on file) Anthony Magdaleno MD 08/13/232141 Normal [facility] Consultation Noteon 08-11-19 Consultation Note [id number]#1.00TIFF Normal [facility] ECG 12 Leadon 08-05-2023 Normal sinus rhythm, normal ECG [facility] Work Phone: [facility] Work Phone: ECG 12-Leadon 08-04-2023 ECG 12-Lead [id number]#1.00TIFF Normal [facility] Lab Reportson 08-04-2023 Lab Reports [id number]#1.00TIFF [facility] RAD - MISCon 08-04-2023 RAD - MISC [id number]#1.00TIFF Normal [facility] Lab Reportson 07-30-2023 Lab Reports [id number]#1.00TIFF Normal [facility] Insurance Correspondenceon 0 07-21-2023 Insurance Correspondence [id number]#1.00TIFF [facility] Consent for Procedure/Surger yon 07-15-2023 Consent for Procedure/Surgery [id number]#1.00TIFF [facility] Facesheeton 07-15-2023 Facesheet [id number]#1.00TIFF [facility] Ambulatory Visit Summaryon 0 07-14-2023 Ambulatory Visit Summary JUDITH MATA :1960 Visit Date:07/14/2023 Ambulatory Visit Instructions Your Care Team Attending Physician - DALE AWAN, Moon Berger Primary Care Physician - TA HADDAD [...] you for choosing us for your care. [facility] Physician Referralon 023 Physician Referral [id number]#1.00TIFF [facility] Physician Referralon 023 Physician Referral [id number]#1.00TIFF [facility] Office Visit (Cardiology)on 08-18-2022 Follow-up visit Diagnoses/Problems Assessed Coronary artery disease involving tuscarora coronary artery of tuscarora heart without angina pectoris (414.01) (I25.10) Mixed hyperlipidemia (272.2) (E78.2) NSTEMI, initial episode of care (410.71) (I21.4) Paroxysmal atrial fibrillation (427.31) (I48.0) Overweight with body mass index (BMI) of 28 to 28.9 in adult (278.02,V85.24) (E66.3,Z68.28) 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) Never a smoker Orders Coronary artery disease involving tuscarora coronary artery of tuscarora heart without angina pectoris Renew: Aspirin EC 81 MG Oral Tablet Delayed Release; TAKE 1 TABLET Daily Mixed hyperlipidemia Renew: Rosuvastatin Calcium 5 MG Oral Tablet; TAKE 1 TABLET Bedtime Lipid Panel; Status:Active - Retrospective Authorization; Requested for:[id number]; Overweight with body mass index (BMI) of 28 to 28.9 in adult Healthy Weight Tips; Status:Complete - Retrospective Authorization; Done: [id number] Some eating tips that can help you lose weight.; Status:Complete - Retrospective Authorization; Done: 18Aug2022 SocHx: Never a smoker Tobacco Use Screening; Status:Complete; Done: [id number] Unlinked Stop: Prasugrel HCl - 10 MG [...] up in 1 year Chief Complaint JACE MATA is being seen for a 6 month follow-up of. 62-year-old healthy and active gentleman who still cycles approximately 60 miles a week, follows up for routine office visit and is stable and asymptomatic and doing well and denies nitrate usage or hospitalizations or symptoms. He sustained non-ST elevation AK in August 2021 with two-vessel intervention of [...] negative for complaint. Vitals Vital Signs Recorded: [id number] 02:30PM Heart Rate72, L Radial Uiarrute472, LUE, Sitting Wsizxtkxb79, LUE, Sitting Height5 ft 10 in Yrjysb620 lb BMI Hbepfcewom01.27 kg/m2 BSA Calculated2.07 Tobacco Useb) No PHQ-2 #1. Over the last 2 weeks have you felt down, depressed or hopeless? (If yes, answer PHQ-9 below)No PHQ-2 #2. Over the last 2 weeks have you felt little interest or pleasure in doing things? (If yes, answer PHQ-9 below)No Signatures Electronically signed by : Dread Koo DO; Aug 18 2022 5:35PM EST (Author) Normal [facility] CBC AUTO DIFFon 02-22-2022 BASO # 0.0 103/ul Normal 0.0-0.1 [facility] Comment on above: Performed By: #### H STROPN, BNP, CMP #### [facility] [address] [place] [address] Dr. Jaycee Mejias Basophils/100 WBC (Bld) 0.6 % Normal 0.2-2.0 [facility] Comment on above: Performed By: #### H STROPN, BNP, CMP #### [facility] [address] [place] [address] Dr. Jaycee Mejias EO # 0.8 103/ul Critically high 0.0-0.7 [facility] Comment on above: Performed By: #### H STROPN, BNP, CMP #### [facility] [address] [place] [address] Dr. Jaycee Mejias Eosinophils/100 WBC (Bld) 16.1 % Critically high 0.9-7.0 [facility] Comment on above: Performed By: #### H STROPN, BNP, CMP #### [facility] [address] [place] [address] Dr. Jaycee Mejias Erythrocyte distribution width (RBC) [Ratio] 12.6 % Normal 11.0-15.0 [facility] Comment on above: Performed By: #### H STROPN, BNP, CMP #### [facility] [address] [place] [address] Dr. Jaycee Mejias Hematocrit (Bld) [Volume fraction] 45.3 % Normal 42.0-54.0 [facility] Comment on above: Performed By: #### H STROPN, BNP, CMP #### [facility] [address] [place] [address] Dr. Jaycee Mejias Hemoglobin (Bld) [Mass/Vol] 15.2 g/dL Normal 14.0-18.0 [facility] Comment on above: Performed By: #### H STROPN, BNP, CMP #### [facility] [address] [place] [address] Dr. Jaycee Mejias IG # 0.01 10e3/ul Normal 0.00-0.03 [facility] Comment on above: Performed By: #### H STROPN, BNP, CMP #### [facility] [address] [place] [address] Dr. Jaycee Mejias IG % 0.2 % Normal 0.0-0.5 [facility] Comment on above: Performed By: #### H STROPN, BNP, CMP #### [facility] [address] [place] [address] Dr. Jaycee Mejias LYMPH # 1.4 103/ul Normal 1.2-3.8 [facility] Comment on above: Performed By: #### H STROPN, BNP, CMP #### [facility] [address] [place] [address] Dr. Jaycee Mejias Lymphocytes/100 WBC (Bld) 27.4 % Normal 20.5-60.0 [facility] Comment on above: Performed By: #### H STROPN, BNP, CMP #### [facility] [address] [place] [address] Dr. Jaycee Mejias MCH (RBC) [Entitic mass] 30.8 pg Normal 25.9-34.0 [facility] Comment on above: Performed By: #### H STROPN, BNP, CMP #### [facility] [address] [place] [address] Dr. Jaycee Mejias MCHC (RBC) [Mass/Vol] 33.6 g/dL Normal 29.9-35.2 [facility] Comment on above: Performed By: #### H STROPN, BNP, CMP #### [facility] [address] [place] [address] Dr. Jaycee Mejias MCV (RBC) [Entitic vol] 91.7 fL Normal 80.0-94.0 [facility] Comment on above: Performed By: #### H STROPN, BNP, CMP #### [facility] [address] [place] [address] Dr. Jaycee Mejias MONO # 0.6 103/ul Normal 0.3-0.8 [facility] Comment on above: Performed By: #### H STROPN, BNP, CMP #### [facility] [address] [place] [address] Dr. Jaycee Mejias Monocytes/100 WBC (Bld) 10.9 % Normal 1.7-12.0 [facility] Comment on above: Performed By: #### H STROPN, BNP, CMP #### [facility] [address] [address] [address] Jaycee Mejias NEUT # 2.3 103/ul Normal 1.4-6.5 [facility] Comment on above: Performed By: #### H STROPN, BNP, CMP #### [facility] [address] [place] [address] [address] Jaycee Mejias Neutrophils/100 WBC (Bld) 44.8 % Normal 43.0-75.0 [facility] Comment on above: Performed By: #### H STROPN, BNP, CMP #### [facility] [address] [address] [address] Jaycee Mejias Platelet mean volume (Bld) [Entitic vol] 9.8 fL Normal 9.5-13.5 [facility] Comment on above: Performed By: #### H STROPN, BNP, CMP #### [facility] [address] [place] [address] [address] Jaycee Mejias PLT 160 103/ul Normal 150-450 [facility] Comment on above: Performed By: #### H STROPN, BNP, CMP #### [facility] [address] [address] [address] Jaycee Mejias RBC 4.94 106/ul Normal 4.70-6.10 [facility] Comment on above: Performed By: #### H STROPN, BNP, CMP #### [facility] [address] [address] [address] Jaycee Mejias WBC 5.0 103/ul Normal 4.0-11.0 [facility] Comment on above: Performed By: #### H STROPN, BNP, CMP #### [facility] [address] [address] [address] Jaycee Mejias SHAKEEL- BMP WITH LIPIDon 2021 Anion gap [Moles/Vol] 7.8 mmol/L Normal [facility] Comment on above: Performed By: #### H STROPN, BNP, CMP #### [facility] [address] [address] [address] Jaycee Mejias Calcium [Mass/Vol] 9.1 mg/dL Normal 8.5-10.1 [facility] Comment on above: Performed By: #### H STROPN, BNP, CMP #### [facility] [address] [address] [address] Jaycee Mejias Chloride [Moles/Vol] 104 mmol/L Normal 98-107 [facility] Comment on above: Performed By: #### H STROPN, BNP, CMP #### [facility] [address] [address] [address] Jaycee Mejias Cholesterol [Mass/Vol] 116 mg/dL Normal <=200 [facility] Comment on above: Performed By: #### H STROPN, BNP, CMP #### [facility] [address] [address] [address] Jaycee Mejias Cholesterol in HDL [Mass/Vol] 45 mg/dL Normal 40-60 [facility] Comment on above: Performed By: #### H STROPN, BNP, CMP #### [facility] [address] [address] [address] Jaycee Mejias Cholesterol in LDL [Mass/Vol] 60.6 mg/dL Normal [facility] Comment on above: Performed By: #### H STROPN, BNP, CMP #### [facility] [address] [address] [address] Jaycee Mejias CO2 [Moles/Vol] 32.1 mmol/L Critically high 21.0-32.0 [facility] Comment on above: Performed By: #### H STROPN, BNP, CMP #### [facility] [address] [place] [address] Dr. Jaycee Mejias Creatinine [Mass/Vol] 0.98 mg/dL Normal 0.70-1.30 [facility] Comment on above: Performed By: #### H STROPN, BNP, CMP #### [facility] [address] [place] [address] Dr. Jaycee Mejias EGFR-AF CITIZEN [place] >60 Normal >=60 [facility] Comment on above: Performed By: #### H STROPN, BNP, CMP #### [facility] [address] [address] [address] Jaycee Mejias EGFR-NON AF CITIZEN OF [place] >60 Normal >=60 [facility] Comment on above: Performed By: #### H STROPN, BNP, CMP #### [facility] [address] [address] [address] Jaycee Mejias Glucose [Mass/Vol] 88 mg/dL Normal 74-106 [facility] Comment on above: Performed By: #### H STROPN, BNP, CMP #### [facility] [address] [address] [address] Jaycee Mejias HDL NORMAL > or = 60 mg/dl - LO W CARDIOVASCULAR RISK <40 mg/dl - HIGH CARDIOVASCULAR RISK Normal [facility] Comment on above: Performed By: #### H STROPN, BNP, CMP #### [facility] [address] [address] [address] Jaycee Mejias LDL CALC NORMAL SEE BELOW Normal [facility] Comment on above: Result Comment: <100 mg/dl OPTIMAL 100 - 129 mg/dl NEAR OR ABOVE OPTIMAL 130 - 159 mg/dl BORDERLINE HIGH 160 - 189 mg/dl HIGH >190 mg/dl VERY HIGH Performed By: #### H STROPN, BNP, CMP #### [facility] [address] [address] [address] Jaycee Mejias Potassium [Moles/Vol] 3.9 mmol/L Normal 3.5-5.1 [facility] Comment on above: Performed By: #### H STROPN, BNP, CMP #### [facility] [address] [address] [address] Jaycee Mejias Sodium [Moles/Vol] 140 mmol/L Normal 136-145 [facility] Comment on above: Performed By: #### H STROPN, BNP, CMP #### [facility] [address] [address] [address] Jaycee Mejias Triglyceride [Mass/Vol] 52 mg/dL Normal <=150 [facility] Comment on above: Performed By: #### H STROPN, BNP, CMP #### [facility] [address] [address] [address] Jaycee Mejias Urea nitrogen [Mass/Vol] 19.0 mg/dL Critically high 7.0-18.0 [facility] Comment on above: Performed By: #### H STROPN, BNP, CMP #### [facility] [address] [address] [address] Jaycee Mejias Urea nitrogen/Creatinine [Mass ratio] 19.4 mg/mg Normal [facility] Comment on above: Performed By: #### H STROPN, BNP, CMP #### [facility] [address] [address] [address] Jaycee Mejias VLDL CALC 10.4 mg/dL Normal [facility] Comment on above: Performed By: #### H STROPN, BNP, CMP #### [facility] [address] [address] [address] Jaycee Mejias GLYCOHEMOGLOBIN A1Con 2021 ADA RECOMMENDATION SEE BELOW Normal [facility] Comment on above: Result Comment: ADA RECOMMENDED LIMIT 4.0 - 6.0 ADA THERAPEUTIC TARGET < 7.0 ACTION SUGGESTED > 7.0 Performed By: #### H STROPN, BNP, CMP #### [facility] [address] [address] [address] Jaycee Mejias Glucose [Mass/Vol] 105 mg/dL Normal [facility] Comment on above: Performed By: #### H STROPN, BNP, CMP #### [facility] [address] [address] [address] Jaycee Mejias HbA1c (Bld) [Mass fraction] 5.3 % Normal 4.5-6.2 [facility] Comment on above: Performed By: #### H STROPN, BNP, CMP #### [facility] [address] [address] [address] 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) Orders Coronary artery disease involving tuscarora coronary artery of tuscarora heart without angina pectoris Renew: Aspirin EC 81 MG Oral Tablet Delayed Release; TAKE 1 TABLET Daily Coronary artery disease involving tus[place]ora coronary artery of tuscarora heart without angina pectoris, Mixed hyperlipidemia Lipid Panel; Status:Active - Retrospective Authorization; Requested for:[id number]; Mixed hyperlipidemia Renew: Rosuvastatin Calcium 5 MG Oral Tablet; TAKE 1 TABLET Bedtime Overweight with body mass index (BMI) of 26 to 26.9 in adult Healthy Weight Tips; Status:Complete - Retrospective Authorization; Done: [id number] Some eating tips that can help you lose weight.; Status:Complete - Retrospective Authorization; Done: [id number] SocHx: Never a smoker Tobacco Use Screening; Status:Complete; Done: [id number] Patient Instructions Please bring all medicines, vitamins, and herbal supplements with you when you come to the office. Prescriptions will not be filled unless you are compliant with your follow up appointments or have a follow up appointment scheduled as per instruction of your physician. Refills should be requested at the time of your visit. Follow up in 6 months Chief Complaint JACE MATA is being seen for a 4 month follow-up of. 61-year-old gentleman returns for follow-up and doing very well he has no cardiovascular complaints. He continues riding bicycle 100 miles a week, he alternates this with weight lifting as well. 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 He is totally asymptomatic and amazingly healthy. He sustained a non-ST elevation AK with primary revascularization of the LAD and PLV branch of the RCA x2 stents performed by Dr. Hunt in August 2021, followed up with nurse practitioner in September and now myself he remains on appropriate guideline directed medical therapies with no untoward side effects and no recurrent hospitalizations We counseled him on etiology for his AK including elite cycling, family genetics. Recommendations, follow-up [...] UNDER THE TONGUE NEEDED FOR CHEST PAIN. Tyronza-3 300 MG CAPSTAKE 1 CAPSULE 4 TIMES [...] negative for complaint. Vitals Vital Signs Recorded: [id number] 10:01AM Heart Rate60, L Radial Vavveypl915, LUE, Sitting Oarmajiow95, LUE, Sitting Height5 ft 10 in Dvvjhg367 lb BMI Pvpdqlxqsc20.54 kg/m2 BSA Calculated2.02 Tobacco Useb) No Physical [...] pedal pu (more content not included)... 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 Hunt) PCI/[place] (2.75x18) mLAD PCI/Partha (2.5x18) mRPLV CX small [...] Montesinos 1999 Orders Coronary artery disease involving tus[place]ora coronary artery of t[place] heart without angina pectoris, Mixed hyperlipidemia ALT - Alanine Aminotransferase, Serum; Status:Active; Requested for:02Dec2021; AST; Status:Active; Requested for:02Dec2021; Lipid Panel; Status:Active; Requested for:02Dec2021; Overweight with body mass index (BMI) of 27 to 27.9 in adult Start: Metoprolol Tartrate 25 MG Oral Tablet; TAKE 1 TABLET TWICE DAILY Healthy Weight Tips; Status:Complete; Done: 18Oct2021 SocHx: Never a smoker Tobacco Use Screening; Status:Complete; Done: 18Oct2021 Patient Instructions Please bring all medicines, vitamins, [...] the office if new symptoms arise. Dr. Koo in 4 months Encourage healthy lifestyle choices [...] Complaint I am doing very well JACE MATA is being seen for follow-up of a hospitalization for chest pain. Patient was recently hospitalized at [facility]. The patient was seen in Cardiology consult with subsequent cardiovascular management by [facility]. Hospitalization records have been reviewed. Reason for Cardiology Consultation: ACS Consulting Kardex Clerk: Dr. Hunt Cardiovascular testing: cardiac cath with [...] Daily Fe (more content not included)... Normal [employer] Tobacco Screening.on 022 Adult depression screening assessment No [facility] [employer] 250 DO Work Phone: Tobacco use status [facility]PH[facility] b) No [facility] [employer] 250 DO Work Phone: BNPon 09-05-2021 Natriuretic peptide B (Bld) [Mass/Vol] 132.0 pg/mL Normal <=900.0 [facility] Comment on above: Performed By: #### H STROPN, BNP, CMP #### [facility] [address] [place] [address] Dr. Jaycee Mejias CBC AUTO DIFFon 09-05-2021 BASO # 0.0 103/ul Normal 0.0-0.1 [facility] Comment on above: Performed By: #### H STROPN, BNP, CMP #### [facility] [address] [address] [address] Jaycee Mejias Basophils/100 WBC (Bld) 0.4 % Normal 0.2-2.0 [facility] Comment on above: Performed By: #### H STROPN, BNP, CMP #### [facility] [address] [address] [address] Jaycee Mejias EO # 0.3 103/ul Normal 0.0-0.7 [facility] Comment on above: Performed By: #### H STROPN, BNP, CMP #### [facility] [address] [address] [address] Jaycee Mejias Eosinophils/100 WBC (Bld) 4.3 % Normal 0.9-7.0 [facility] Comment on above: Performed By: #### H STROPN, BNP, CMP #### [facility] [address] [place] [address] Dr. Jaycee Mejias Erythrocyte distribution width (RBC) [Ratio] 13.3 % Normal 11.0-15.0 [facility] Comment on above: Performed By: #### H STROPN, BNP, CMP #### [facility] [address] [place] [address] Dr. Jaycee Mejias Hematocrit (Bld) [Volume fraction] 50.5 % Normal 42.0-54.0 [facility] Comment on above: Performed By: #### H STROPN, BNP, CMP #### [facility] [address] [place] [address] Dr. Jaycee Mejias Hemoglobin (Bld) [Mass/Vol] 16.7 g/dL Normal 14.0-18.0 [facility] Comment on above: Performed By: #### H STROPN, BNP, CMP #### [facility] [address] [place] [address] Dr. Jaycee Mejias IG # 0.01 10e3/ul Normal 0.00-0.03 [facility] Comment on above: Performed By: #### H STROPN, BNP, CMP #### [facility] [address] [place] [address] Dr. Jaycee Mejias IG % 0.1 % Normal 0.0-0.5 [facility] Comment on above: Performed By: #### H STROPN, BNP, CMP #### [facility] [address] [place] [address] Dr. Jaycee Mejias LYMPH # 2.1 103/ul Normal 1.2-3.8 [facility] Comment on above: Performed By: #### H STROPN, BNP, CMP #### [facility] [address] [place] [address] Dr. Jaycee Mejias Lymphocytes/100 WBC (Bld) 29.3 % Normal 20.5-60.0 [facility] Comment on above: Performed By: #### H STROPN, BNP, CMP #### [facility] [address] [place] [address] Dr. Jaycee Mejias MANUAL DIFF REQ NO Normal [facility] Comment on above: Performed By: #### H STROPN, BNP, CMP #### [facility] [address] [address] [address] Jaycee Mejias MCH (RBC) [Entitic mass] 29.9 pg Normal 25.9-34.0 [facility] Comment on above: Performed By: #### H STROPN, BNP, CMP #### [facility] [address] [place] [address] Dr. Jaycee Mejias MCHC (RBC) [Mass/Vol] 33.1 g/dL Normal 29.9-35.2 [facility] Comment on above: Performed By: #### H STROPN, BNP, CMP #### [facility] [address] [place] [address] Dr. Jaycee Mejias MCV (RBC) [Entitic vol] 90.3 fL Normal 80.0-94.0 [facility] Comment on above: Performed By: #### H STROPN, BNP, CMP #### [facility] [address] [place] [address] Dr. Jaycee Mejias MONO # 0.7 103/ul Normal 0.3-0.8 [facility] Comment on above: Performed By: #### H STROPN, BNP, CMP #### [facility] [address] [place] [address] Dr. Jaycee Mejisa Monocytes/100 WBC (Bld) 10.1 % Normal 1.7-12.0 [facility] Comment on above: Performed By: #### H STROPN, BNP, CMP #### [facility] [address] [place] [address] Dr. Jaycee Mejias NEUT # 3.9 103/ul Normal 1.4-6.5 [facility] Comment on above: Performed By: #### H STROPN, BNP, CMP #### [facility] [address] [place] [address] Dr. Jaycee Mejias Neutrophils/100 WBC (Bld) 55.8 % Normal 43.0-75.0 [facility] Comment on above: Performed By: #### H STROPN, BNP, CMP #### [facility] [address] [place] [address] Dr. Jaycee Mejias Platelet mean volume (Bld) [Entitic vol] 10.2 fL Normal 9.5-13.5 [facility] Comment on above: Performed By: #### H STROPN, BNP, CMP #### [facility] [address] [place] [address] Dr. Jaycee Mejias PLT 201 103/ul Normal 150-450 [facility] Comment on above: Performed By: #### H STROPN, BNP, CMP #### [facility] [address] [place] [address] Dr. Jaycee Mejias RBC 5.59 106/ul Normal 4.70-6.10 [facility] Comment on above: Performed By: #### H STROPN, BNP, CMP #### [facility] [address] [place] [address] Dr. Jaycee Mejias WBC 7.0 103/ul Normal 4.0-11.0 [facility] Comment on above: Performed By: #### H STROPN, BNP, CMP #### [facility] [address] [place] [address] Dr. Jaycee Mejias PROF 14(COMP METB)on 022 Albumin [Mass/Vol] 4.2 g/dL Normal 3.5-5.0 [facility] Comment on above: Performed By: #### H STROPN, BNP, CMP #### [facility] [address] [place] [address] Dr. Jaycee Mejias Albumin/Globulin [Mass ratio] 1.4 {ratio} Normal [facility] Comment on above: Performed By: #### H STROPN, BNP, CMP #### [facility] [address] [place] [address] Dr. Jaycee Mejias ALP [Catalytic activity/Vol] 75 U/L Normal 38-126 [facility] Comment on above: Performed By: #### H STROPN, BNP, CMP #### [facility] [address] [place] [address] Dr. Jaycee Mejias ALT [Catalytic activity/Vol] 34 U/L Normal 21-72 [facility] Comment on above: Performed By: #### H STROPN, BNP, CMP #### [facility] [address] [address] [address] Jaycee Mejias Anion gap [Moles/Vol] 10.4 mmol/L Normal [facility] Comment on above: Performed By: #### H STROPN, BNP, CMP #### [facility] [address] [place] [address] Dr. Jaycee Mejias AST [Catalytic activity/Vol] 25 U/L Normal 17-59 [facility] Comment on above: Performed By: #### H STROPN, BNP, CMP #### [facility] [address] [place] [address] Dr. Jaycee Mejias Bilirubin [Mass/Vol] 0.6 mg/dL Normal 0.2-1.3 [facility] Comment on above: Performed By: #### H STROPN, BNP, CMP #### [facility] [address] [place] [address] Dr. Jaycee Mejias Calcium [Mass/Vol] 9.0 mg/dL Normal 8.4-10.2 [facility] Comment on above: Performed By: #### H STROPN, BNP, CMP #### [facility] [address] [place] [address] Dr. Jaycee Mejias Chloride [Moles/Vol] 103 mmol/L Normal 98-107 [facility] Comment on above: Performed By: #### H STROPN, BNP, CMP #### [facility] [address] [place] [address] Dr. Jaycee Mejias CO2 [Moles/Vol] 28.1 mmol/L Normal 22.0-30.0 [facility] Comment on above: Performed By: #### H STROPN, BNP, CMP #### [facility] [address] [place] [address] Dr. Jaycee Mejias Creatinine [Mass/Vol] 0.86 mg/dL Normal 0.66-1.25 [facility] Comment on above: Performed By: #### H STROPN, BNP, CMP #### [facility] [address] [place] [address] Dr. Jaycee Mejias EGFR-AF [place]IZ[place] >60 Normal >=60 [facility] Comment on above: Performed By: #### H STROPN, BNP, CMP #### [facility] [address] [address] [address] Jaycee Mejias EGFR-NON AF [place]IZEN [place] >60 Normal >=60 [facility] Comment on above: Performed By: #### H STROPN, BNP, CMP #### [facility] [address] [address] [address] Jaycee Mejias Globulin (S) [Mass/Vol] 3.1 g/dL Normal [facility] Comment on above: Performed By: #### H STROPN, BNP, CMP #### [facility] [address] [address] [address] Jaycee Mejias Glucose [Mass/Vol] 110 mg/dL Critically high 74-106 [facility] Comment on above: Performed By: #### H STROPN, BNP, CMP #### [facility] [address] [address] [address] Jaycee Mejias Potassium [Moles/Vol] 3.5 mmol/L Normal 3.4-5.0 [facility] Comment on above: Performed By: #### H STROPN, BNP, CMP #### [facility] [address] [address] [address] Jaycee Mejias Protein [Mass/Vol] 7.3 g/dL Normal 6.1-8.2 [facility] Comment on above: Performed By: #### H STROPN, BNP, CMP #### [facility] [address] [address] [address] Jaycee Mejias Sodium [Moles/Vol] 138 mmol/L Normal 137-145 [facility] Comment on above: Performed By: #### H STROPN, BNP, CMP #### [facility] [address] [address] [address] Jaycee Mejias Urea nitrogen [Mass/Vol] 25.0 mg/dL Critically high 9.0-20.0 [facility] Comment on above: Performed By: #### H STROPN, BNP, CMP #### [facility] [address] [address] [address] Jaycee Mejias Urea nitrogen/Creatinine [Mass ratio] 29.1 mg/mg Normal [facility] Comment on above: Performed By: #### H STROPN, BNP, CMP #### [facility] [address] [place] [address] Dr. Jyacee Mejias PROTIMEon 09-05-2021 INR Coag (PPP) [Relative time] 1.11 {INR} Normal [facility] Comment on above: Performed By: #### P TT, PT #### [facility] [address] [place] [address] Dr. Jaycee Mejias INR GUIDELINES SEE BELOW Normal [facility] Comment on above: Result Comment: KADY RED INR: 2.0 - 3.0 CONDITIONS NOT LISTED BELOW 2.5 - 3.5 FOR PROSTHETIC HEART VALVE REPLACEMENT 2.5 - 3.5 RECURRENT THROMBOSIS Performed By: #### P TT, PT #### [facility] [address] [place] [address] Dr. Jaycee Mejias PT Coag (PPP) [Time] 11.9 s Critically high 9.0-11.6 [facility] Comment on above: Performed By: #### P TT, PT #### [facility] [address] [place] [address] Dr. Jaycee Mejias PTTon 09-05-2021 aPTT Coag (Bld) [Time] 27.8 s Normal 22.3-36.2 [facility] Comment on above: Performed By: #### P TT, PT #### [facility] [address] [place] [address] Dr. Jaycee Mejias TROPONIN, HIGH SENSITIVITYon 09-05-2021 HSTROP 25.9 pg/mL Normal 4.0-42.2 [facility] Comment on above: Result Comment: CUT- OFF POINTS HAVE BEEN ESTABLISHED BASED ON THE FOURTH UNIVERSAL DEFINITIONS OF MYOCARDIAL INFARCTION. THE UPPER REFERENCE LIMIT (URL) OF TROPONIN, DEFINED THE 99TH PERCENTILE OF cTnI DISTRIBUTION IN A REFERENCE POPULATION, HAS BEEN CONFIRMED THE DECISION THRESHOLD FOR AK DIAGNOSIS. Performed By: #### H STROPN, BNP, CMP #### [facility] [address] [place] [address] Dr. Jaycee Mejias XR CHEST 1 Von [...] BRYAN VARGAS Date: 2021-09-05 18:32 Normal [facility] CBC AUTO DIFFon 06-03-2021 BASO # 0.0 103/ul Normal 0.0-0.1 [facility] Comment on above: Performed By: #### C BC #### [facility] [address] [place] [address] Dr. Jaycee Mejias Basophils/100 WBC (Bld) 0.4 % Normal 0.2-2.0 [facility] Comment on above: Performed By: #### C BC #### [facility] [address] [place] [address] Dr. Jaycee Mejias EO # 0.6 103/ul Normal 0.0-0.7 [facility] Comment on above: Performed By: #### C BC #### [facility] [address] [place] [address] Dr. Jaycee Mejias Eosinophils/100 WBC (Bld) 13.8 % Critically high 0.9-7.0 [facility] Comment on above: Performed By: #### C BC #### [facility] [address] [place] [address] Dr. Jaycee Mejias Erythrocyte distribution width (RBC) [Ratio] 13.0 % Normal 11.0-15.0 [facility] Comment on above: Performed By: #### C BC #### [facility] [address] [place] [address] Dr. Jaycee Mejias Hematocrit (Bld) [Volume fraction] 48.3 % Normal 42.0-54.0 [facility] Comment on above: Performed By: #### C BC #### [facility] [address] [place] [address] Dr. Jaycee Mejias Hemoglobin (Bld) [Mass/Vol] 15.9 g/dL Normal 14.0-18.0 [facility] Comment on above: Performed By: #### C BC #### [facility] [address] [place] [address] Dr. Jaycee Mejias IG # 0.01 10e3/ul Normal 0.00-0.03 [facility] Comment on above: Performed By: #### C BC #### [facility] [address] [place] [address] Dr. Jaycee Mejias IG % 0.2 % Normal 0.0-0.5 [facility] Comment on above: Performed By: #### C BC #### [facility] [address] [place] [address] Dr. Jaycee eMjias LYMPH # 1.3 103/ul Normal 1.2-3.8 [facility] Comment on above: Performed By: #### C BC #### [facility] [address] [place] [address] Dr. Jaycee Mejias Lymphocytes/100 WBC (Bld) 28.2 % Normal 20.5-60.0 [facility] Comment on above: Performed By: #### C BC #### [facility] [address] [place] [address] Dr. Jaycee Mejias MANUAL DIFF REQ NO Normal [facility] Comment on above: Performed By: #### C BC #### [facility] [address] [place] [address] Dr. Jaycee Mejias MCH (RBC) [Entitic mass] 29.8 pg Normal 25.9-34.0 [facility] Comment on above: Performed By: #### C BC #### [facility] [address] [place] [address] Dr. Jaycee Mejias MCHC (RBC) [Mass/Vol] 32.9 g/dL Normal 29.9-35.2 [facility] Comment on above: Performed By: #### C BC #### [facility] [address] [place] [address] Dr. Jaycee Mejias MCV (RBC) [Entitic vol] 90.6 fL Normal 80.0-94.0 [facility] Comment on above: Performed By: #### C BC #### [facility] [address] [place] [address] Dr. Jaycee Mejias MONO # 0.6 103/ul Normal 0.3-0.8 [facility] Comment on above: Performed By: #### C BC #### [facility] [address] [place] [address] Dr. Jaycee Mejias Monocytes/100 WBC (Bld) 12.7 % Critically high 1.7-12.0 [facility] Comment on above: Performed By: #### C BC #### [facility] [address] [place] [address] Dr. Jaycee Mejias NEUT # 2.0 103/ul Normal 1.4-6.5 [facility] Comment on above: Performed By: #### C BC #### [facility] [address] [place] [address] Dr. Jaycee Mejias Neutrophils/100 WBC (Bld) 44.7 % Normal 43.0-75.0 [facility] Comment on above: Performed By: #### C BC #### [facility] [address] [place] [address] Dr. Jaycee Mejias Platelet mean volume (Bld) [Entitic vol] 10.5 fL Normal 9.5-13.5 [facility] Comment on above: Performed By: #### C BC #### [facility] [address] [place] [address] Dr. Jaycee Mejias PLT 168 103/ul Normal 150-450 [facility] Comment on above: Performed By: #### C BC #### [facility] [address] [place] [address] Dr. Jaycee Mejias RBC 5.33 106/ul Normal 4.70-6.10 [facility] Comment on above: Performed By: #### C BC #### [facility] [address] [place] [address] Dr. Jaycee Mejias WBC 4.5 103/ul Normal 4.0-11.0 [facility] Comment on above: Performed By: #### C BC #### [facility] [address] [address] [address] Jaycee Mejias GLYCOHEMOGLOBIN A1Con 2020 ADA RECOMMENDATION ADA THERAPEUTIC TARG ET 6.0 - 7.0 ACTION SUGGESTED > 7.0 Normal [facility] Comment on above: Performed By: #### H STROPN, BNP, CMP #### [facility] [address] [address] [address] Jaycee Mejias Glucose [Mass/Vol] 108 mg/dL Normal [facility] Comment on above: Performed By: #### H STROPN, BNP, CMP #### [facility] [address] [address] [address] Jaycee Mejias HbA1c (Bld) [Mass fraction] 5.4 % Normal <=6.0 [facility] Comment on above: Performed By: #### H STROPN, BNP, CMP #### [facility] [address] [place] [address] Dr. Jaycee Mejias LIPID PROFILEon 06-03-2021 CHOL-HDL RATIO NORM SEE BELOW Normal [facility] Comment on above: Result Comment: 3.3 - 4.4 LOW RISK 4.4 - 7.1 AVERAGE RISK 7.1 - 11.0 MODERATE RISK >11.0 HIGH RISK Performed By: #### H STROPN, BNP, CMP #### [facility] [address] [place] [address] Dr. Jaycee Mejias Cholesterol [Mass/Vol] 189 mg/dL Normal <=200 [facility] Comment on above: Performed By: #### H STROPN, BNP, CMP #### [facility] [address] [address] [address] Jaycee Mejias Cholesterol in HDL [Mass/Vol] 50 mg/dL Normal [facility] Comment on above: Performed By: #### H STROPN, BNP, CMP #### [facility] [address] [place] [address] Dr. Jaycee Mejias Cholesterol in LDL [Mass/Vol] 130.2 mg/dL Normal [facility] Comment on above: Performed By: #### H STROPN, BNP, CMP #### [facility] [address] [address] [address] Jaycee Mejias Cholesterol.total/Chol esterol in HDL [Mass ratio] 3.8 {ratio} Normal [facility] Comment on above: Performed By: #### H STROPN, BNP, CMP #### [facility] [address] [address] [address] Jaycee Mejias HDL NORMAL > or = 60 mg/dl - LO W CARDIOVASCULAR RISK <40 mg/dl - HIGH CARDIOVASCULAR RISK Normal [facility] Comment on above: Performed By: #### H STROPN, BNP, CMP #### [facility] [address] [address] [address] Jaycee Mejias LDL CALC NORMAL SEE BELOW Normal [facility] Comment on above: Result Comment: <100 mg/dl OPTIMAL 100 - 129 mg/dl NEAR OR ABOVE OPTIMAL 130 - 159 mg/dl BORDERLINE HIGH 160 - 189 mg/dl HIGH >190 mg/dl VERY HIGH Performed By: #### H STROPN, BNP, CMP #### [facility] [address] [place] [address] Dr. Jaycee Mejias Triglyceride [Mass/Vol] 44 mg/dL Normal <=150 [facility] Comment on above: Performed By: #### H STROPN, BNP, CMP #### [facility] [address] [place] [address] Dr. Jaycee Mejias VLDL CALC 8.8 mg/dL Normal [facility] Comment on above: Performed By: #### H STROPN, BNP, CMP #### [facility] [address] [address] [address] Jaycee Mejias PROF CHEM 8 (BAS METB)on Anion gap [Moles/Vol] 9.7 mmol/L Normal [facility] Comment on above: Performed By: #### H STROPN, BNP, CMP #### [facility] [address] [place] [address] Dr. Jaycee Mejias Calcium [Mass/Vol] 9.4 mg/dL Normal 8.4-10.2 [facility] Comment on above: Performed By: #### H STROPN, BNP, CMP #### [facility] [address] [address] [address] Jaycee Mejias Chloride [Moles/Vol] 104 mmol/L Normal 98-107 [facility] Comment on above: Performed By: #### H STROPN, BNP, CMP #### [facility] [address] [address] [address] Jaycee Mejias CO2 [Moles/Vol] 33.2 mmol/L Critically high 22.0-30.0 [facility] Comment on above: Performed By: #### H STROPN, BNP, CMP #### [facility] [address] [address] [address] Jaycee Mejias Creatinine [Mass/Vol] 0.86 mg/dL Normal 0.66-1.25 [facility] Comment on above: Performed By: #### H STROPN, BNP, CMP #### [facility] [address] [place] [address] Dr. Jaycee Mejias EGFR-AF CITIZ[place] >60 Normal >=60 [facility] Comment on above: Performed By: #### H STROPN, BNP, CMP #### [facility] [address] [place] [address] Dr. Jaycee Mejias EGFR-NON AF CITIZEN OF [place] >60 Normal >=60 [facility] Comment on above: Performed By: #### H STROPN, BNP, CMP #### [facility] [address] [place] [address] Dr. Jaycee Mejias Glucose [Mass/Vol] 90 mg/dL Normal 74-106 [facility] Comment on above: Performed By: #### H STROPN, BNP, CMP #### [facility] [address] [place] [address] Dr. Jaycee Mejias Potassium [Moles/Vol] 3.9 mmol/L Normal 3.4-5.0 [facility] Comment on above: Performed By: #### H STROPN, BNP, CMP #### [facility] [address] [address] [address] Jaycee Mejias Sodium [Moles/Vol] 143 mmol/L Normal 137-145 [facility] Comment on above: Performed By: #### H STROPN, BNP, CMP #### [facility] [address] [place] [address] Dr. Jaycee Mejias Urea nitrogen [Mass/Vol] 23.0 mg/dL Critically high 9.0-20.0 [facility] Comment on above: Performed By: #### H STROPN, BNP, CMP #### [facility] [address] [place] [address] Dr. Jaycee Mejias Urea nitrogen/Creatinine [Mass ratio] 26.7 mg/mg Normal [facility] Comment on above: Performed By: #### H STROPN, BNP, CMP #### [facility] [address] [place] [address] Dr. Jaycee Mejias VITAMIN D 25 OHon 06-03-2021 VIT D 25-OH 80.4 ng/mL Normal [facility] Comment on above: Performed By: #### H NANCY, BNP, CMP #### [facility] [address] [place] [address] Dr. Jaycee Mejias VIT D RANGES SEE BELOW Normal [facility] Comment on above: Result Comment: <20 ng/mL Vit D deficient 20 - <30 ng/mL Vit D insufficient 30 - 100 ng/mL Vit D sufficient >100 ng/mL Potential Toxicity Performed By: #### H NANCY, BNP, CMP #### [facility] [address] [place] [address] Dr. Jaycee Mejias CBC AUTO DIFFon 03-15-2021 BASO # 0.0 103/ul Normal 0.0-0.1 [facility] Comment on above: Performed By: #### C BC #### [facility] [address] [place] [address] Dr. Jaycee Mejias Basophils/100 WBC (Bld) 0.5 % Normal 0.2-2.0 [facility] Comment on above: Performed By: #### C BC #### [facility] [address] [place] [address] Dr. Jaycee Mejias EO # 0.7 103/ul Normal 0.0-0.7 [facility] Comment on above: Performed By: #### C BC #### [facility] [address] [place] [address] Dr. Jaycee Mejias Eosinophils/100 WBC (Bld) 12.6 % Critically high 0.9-7.0 [facility] Comment on above: Performed By: #### C BC #### [facility] [address] [place] [address] Dr. Jaycee Mejias Erythrocyte distribution width (RBC) [Ratio] 12.9 % Normal 11.0-15.0 [facility] Comment on above: Performed By: #### C BC #### [facility] [address] [place] [address] Dr. Jaycee Mejias Hematocrit (Bld) [Volume fraction] 41.8 % Critically low 42.0-54.0 [facility] Comment on above: Performed By: #### C BC #### [facility] [address] [place] [address] Dr. Jaycee Mejias Hemoglobin (Bld) [Mass/Vol] 14.2 g/dL Normal 14.0-18.0 [facility] Comment on above: Performed By: #### C BC #### [facility] [address] [place] [address] Dr. Jaycee Mejias IG # 0.01 10e3/ul Normal 0.00-0.03 [facility] Comment on above: Performed By: #### C BC #### [facility] [address] [place] [address] Dr. Jaycee Mejias IG % 0.2 % Normal 0.0-0.5 [facility] Comment on above: Performed By: #### C BC #### [facility] [address] [place] [address] Dr. Jaycee Mejias LYMPH # 1.5 103/ul Normal 1.2-3.8 [facility] Comment on above: Performed By: #### C BC #### [facility] [address] [place] [address] Dr. Jaycee Mejias Lymphocytes/100 WBC (Bld) 27.0 % Normal 20.5-60.0 [facility] Comment on above: Performed By: #### C BC #### [facility] [address] [place] [address] Dr. Jaycee Mejias MANUAL DIFF REQ NO Normal [facility] Comment on above: Performed By: #### C BC #### [facility] [address] [place] [address] Dr. Jaycee Mejias MCH (RBC) [Entitic mass] 30.0 pg Normal 25.9-34.0 [facility] Comment on above: Performed By: #### C BC #### [facility] [address] [place] [address] Dr. Jaycee Mejias MCHC (RBC) [Mass/Vol] 34.0 g/dL Normal 29.9-35.2 [facility] Comment on above: Performed By: #### C BC #### [facility] [address] [place] [address] Dr. Jaycee Mejias MCV (RBC) [Entitic vol] 88.2 fL Normal 80.0-94.0 [facility] Comment on above: Performed By: #### C BC #### [facility] [address] [place] [address] Dr. Jaycee Mejias MONO # 0.6 103/ul Normal 0.3-0.8 [facility] Comment on above: Performed By: #### C BC #### [facility] [address] [place] [address] Dr. Jaycee Mejias Monocytes/100 WBC (Bld) 9.8 % Normal 1.7-12.0 [facility] Comment on above: Performed By: #### C BC #### [facility] [address] [place] [address] Dr. Jaycee Mejias NEUT # 2.8 103/ul Normal 1.4-6.5 [facility] Comment on above: Performed By: #### C BC #### [facility] [address] [place] [address] Dr. Jaycee Mejias Neutrophils/100 WBC (Bld) 49.9 % Normal 43.0-75.0 [facility] Comment on above: Performed By: #### C BC #### [facility] [address] [place] [address] Dr. Jaycee Mejias Platelet mean volume (Bld) [Entitic vol] 10.0 fL Normal 9.5-13.5 [facility] Comment on above: Performed By: #### C BC #### [facility] [address] [place] [address] Dr. Jaycee Mejias PLT 187 103/ul Normal 150-450 [facility] Comment on above: Performed By: #### C BC #### [facility] [address] [address] [address] Jaycee Mejias RBC 4.74 106/ul Normal 4.70-6.10 [facility] Comment on above: Performed By: #### C BC #### [facility] [address] [place] [address] Dr. Jaycee Mejias WBC 5.6 103/ul Normal 4.0-11.0 [facility] Comment on above: Performed By: #### C BC #### [facility] [address] [place] [address] Dr. Jaycee Mejias CRPon 03-15-2021 CRP [Mass/Vol] mg/L Normal <=1.0 [facility] Comment on above: Performed By: #### H STROPN, BNP, CMP #### [facility] [address] [place] [address] Dr. Jaycee Mejias D-DIMERon 03-15-2021 D-DIMER 1.15 mg/L FEU Critically high 0.19-0.50 [facility] Comment on above: Result Comment: Test repeated, critical value verified. Performed By: #### D DIM, PTT, PT #### [facility] [address] [place] [address] Dr. Jaycee Mejias D-DIMER COMMENTS SEE BELOW Normal [facility] Comment on above: Result Comment: Incr eases [...] By: #### D DIM, PTT, PT #### [facility] [address] [place] [address] Dr. Jaycee Mejias PROF 14(COMP METB)on 021 Albumin [Mass/Vol] 3.6 g/dL Normal 3.5-5.0 [facility] Comment on above: Performed By: #### H STROPN, BNP, CMP #### [facility] [address] [place] [address] Dr. Jaycee Mejias Albumin/Globulin [Mass ratio] 1.2 {ratio} Normal [facility] Comment on above: Performed By: #### H STROPN, BNP, CMP #### [facility] [address] [place] [address] Dr. Jaycee Mejias ALP [Catalytic activity/Vol] 66 U/L Normal 38-126 [facility] Comment on above: Performed By: #### H STROPN, BNP, CMP #### [facility] [address] [place] [address] Dr. Jaycee Mejias ALT [Catalytic activity/Vol] 32 U/L Normal 21-72 [facility] Comment on above: Performed By: #### H STROPN, BNP, CMP #### [facility] [address] [place] [address] Dr. Jaycee Mejias Anion gap [Moles/Vol] 10.2 mmol/L Normal [facility] Comment on above: Performed By: #### H STROPN, BNP, CMP #### [facility] [address] [place] [address] Dr. Jaycee Mejias AST [Catalytic activity/Vol] 25 U/L Normal 17-59 [facility] Comment on above: Performed By: #### H STROPN, BNP, CMP #### [facility] [address] [place] [address] Dr. Jaycee Mejias Bilirubin [Mass/Vol] 0.4 mg/dL Normal 0.2-1.3 [facility] Comment on above: Performed By: #### H STROPN, BNP, CMP #### [facility] [address] [address] [address] Jaycee Mejias Calcium [Mass/Vol] 9.3 mg/dL Normal 8.4-10.2 [facility] Comment on above: Performed By: #### H STROPN, BNP, CMP #### [facility] [address] [address] [address] Jaycee Mejias Chloride [Moles/Vol] 105 mmol/L Normal 98-107 [facility] Comment on above: Performed By: #### H STROPN, BNP, CMP #### [facility] [address] [address] [address] Jaycee Mejias CO2 [Moles/Vol] 30.3 mmol/L Critically high 22.0-30.0 [facility] Comment on above: Performed By: #### H STROPN, BNP, CMP #### [facility] [address] [place] [address] Dr. Jaycee Mejias Creatinine [Mass/Vol] 0.79 mg/dL Normal 0.66-1.25 [facility] Comment on above: Performed By: #### H STROPN, BNP, CMP #### [facility] [address] [place] [address] Dr. Jaycee Mejias EGFR-AF [place]IZ[place] >60 Normal >=60 [facility] Comment on above: Performed By: #### H STROPN, BNP, CMP #### [facility] [address] [place] [address] Dr. Jaycee Mejias EGFR-NON AF [place]IZ[place] OF [place] >60 Normal >=60 [facility] Comment on above: Performed By: #### H STROPN, BNP, CMP #### [facility] [address] [address] [address] Jaycee Mejias Globulin (S) [Mass/Vol] 3.0 g/dL Normal [facility] Comment on above: Performed By: #### H STROPN, BNP, CMP #### [facility] [address] [place] [address] Dr. Jaycee Mejias Glucose [Mass/Vol] 107 mg/dL Critically high 74-106 [facility] Comment on above: Performed By: #### H STROPN, BNP, CMP #### [facility] [address] [address] [address] Jaycee Mejias Potassium [Moles/Vol] 3.5 mmol/L Normal 3.4-5.0 [facility] Comment on above: Performed By: #### H STROPN, BNP, CMP #### [facility] [address] [place] [address] Dr. Jaycee Mejias Protein [Mass/Vol] 6.6 g/dL Normal 6.1-8.2 [facility] Comment on above: Performed By: #### H STROPN, BNP, CMP #### [facility] [address] [place] [address] Dr. Jaycee Mejias Sodium [Moles/Vol] 142 mmol/L Normal 137-145 [facility] Comment on above: Performed By: #### H STROPN, BNP, CMP #### [facility] [address] [place] [address] Dr. Jaycee Mejias Urea nitrogen [Mass/Vol] 33.0 mg/dL Critically high 9.0-20.0 [facility] Comment on above: Performed By: #### H STROPN, BNP, CMP #### [facility] [address] [place] [address] Dr. Jaycee Mejias Urea nitrogen/Creatinine [Mass ratio] 41.8 mg/mg Normal [facility] Comment on above: Performed By: #### H STROPN, BNP, CMP #### [facility] [address] [place] [address] Dr. Jaycee Mejias PROTIMEon 03-15-2021 INR Coag (PPP) [Relative time] 1.14 {INR} Normal [facility] Comment on above: Performed By: #### D DIM, PTT, PT #### [facility] [address] [place] [address] Dr. Jaycee Mejias INR GUIDELINES SEE BELOW Normal [facility] Comment on above: Result Comment: KADY RED INR: 2.0 - 3.0 CONDITIONS NOT LISTED BELOW 2.5 - 3.5 FOR PROSTHETIC HEART VALVE REPLACEMENT 2.5 - 3.5 RECURRENT THROMBOSIS Performed By: #### D DIM, PTT, PT #### [facility] [address] [place], [place] [address] Dr. Jaycee Mejias PT Coag (PPP) [Time] 12.2 s Critically high 9.0-11.6 [facility] Comment on above: Performed By: #### D DIM, PTT, PT #### [facility] [address] [place], [place] [address] Dr. Jaycee Mejias PTTon 03-15-2021 aPTT Coag (Bld) [Time] 28.5 s Normal 22.3-36.2 [facility] Comment on above: Performed By: #### D DIM, PTT, PT #### [facility] [address] [address] [address] Jaycee Mejias [facility] SED RATE 14 mm/hr Normal <=20 [facility] Comment on above: Performed By: #### H STROPN, BNP, CMP #### [facility] [address] [address] [address] Jaycee Mejias US LOU DOP LEG [...] vein (superficial vein). Electronically authenticated by: ALEXY METZ Date: 2021-03-15 09:33 Normal [facility] Vital Signs Date Time Vital Sign Value Performing Clinician Facility 04-07-2024 08:01-0400 Body height 177.8 cm Armond Sahil DO Work Phone: [facility] 04-07-2024 08:01-0400 Body mass index (BMI) [Ratio] 27.98 kg/m2 Armond [place] DO Work Phone: [facility] 04-07-2024 08:01-0400 Body temperature 97.5 [degF] Armond [place] DO Work Phone: [facility] 04-07-2024 08:01-0400 Body weight 88.45 kg Armond [place] DO Work Phone: [facility] 04-07-2024 08:01-0400 Diastolic blood pressure 64 mm[Hg] Armond [place] DO Work Phone: [facility] 04-07-2024 08:01-0400 Heart rate 56 /min Armond [place] DO Work Phone: [facility] 04-07-2024 08:01-0400 SaO2% (BldA) [Mass fraction] 98 % Armond [place] DO Work Phone: [facility] 04-07-2024 08:01-0400 Systolic blood pressure 128 mm[Hg] Armond [place] DO Work Phone: 6(351)[phone] [place] [address] 03-13-2024 11:39-0400 Body height 177.8 cm DO Armond [place] Work Phone: 4(400)647-689[address] [place] [address] 03-13-2024 11:39-0400 Body mass index (BMI) [Ratio] 26.8 kg/m2 DO Armond [place] Work Phone: [facility] 03-13-2024 11:39-0400 Body temperature 97.5 [degF] DO Armond [place] Work Phone: 2(885)[phone] [address] 03-13-2024 11:39-0400 Body weight 84.82 kg DO Armond [place] Work Phone: 4(870)[phone] [place] [address] 03-13-2024 11:39-0400 Diastolic blood pressure 72 mm[Hg] DO Armond [place] Work Phone: [facility] 03-13-2024 11:39-0400 Heart rate 72 /min DO Armond [place] Work Phone: [facility] 03-13-2024 11:39-0400 Respiratory rate 16 /min DO Armond [place] Work Phone: [facility] 03-13-2024 11:39-0400 SaO2% (BldA) [Mass fraction] 92 % DO Armond [place] Work Phone: [facility] 03-13-2024 11:39-0400 Systolic blood pressure 127 mm[Hg] DO Armond [place] Work Phone: 8(043)[phone] [place] [address] 01-18-2024 16:59-0400 Diastolic blood pressure 71 mm[Hg] DO Armond [place] Work Phone: 4(163)341-915750 [address] 01-18-2024 16:59-0400 Heart rate 71 /min DO Armond [place] Work Phone: 3(131)[phone] [address] 01-18-2024 16:59-0400 Systolic blood pressure 144 mm[Hg] DO Armond [place] Work Phone: [phone](406)[phone] [address] 01-18-2024 16:30-0400 SaO2% (BldA) [Mass fraction] 95 % DO Armond [place] Work Phone: [facility] 01-18-2024 14:30-0400 Body temperature 97.6 [degF] DO Armond [place] Work Phone: [facility] 01-18-2024 14:30-0400 Respiratory rate 16 /min DO Armond [place] Work Phone: [facility] 01-18-2024 05:39-0400 Body weight 80.5 kg DO Armond [place] Work Phone: [facility] 01-16-2024 19:30-0400 Body height 177.8 cm DO Armond [place] Work Phone: [facility] 01-16-2024 17:38-0400 Diastolic blood pressure 75 mm[Hg] DO Armond [place] Work Phone: 1(821)[phone] [address] 01-16-2024 17:38-0400 Heart rate 70 /min DO Armond [place] Work Phone: [facility] 01-16-2024 17:38-0400 Respiratory rate 18 /min DO Armond [place] Work Phone: [facility] 01-16-2024 17:38-0400 SaO2% (BldA) [Mass fraction] 96 % DO Armond [place] Work Phone: [facility] [facility] 01-16-[facility]24 17:38-0400 Systolic blood pressure 137 mm[Hg] DO Armond [place] Work Phone: [facility] 01-16-2024 10:37-0400 Body temperature 97.7 [degF] DO Armond [place] Work Phone: [facility] 01-16-2024 10:35-0400 Body height 177.8 cm DO Armond [place] Work Phone: [facility] 01-16-2024 10:35-0400 Body weight 81.64 kg DO Armodn [place] Work Phone: [facility] 08-05-2023 15:06-0500 Body height 177.8 cm Dread Koo DO Work Phone: [facility] 08-05-2023 15:06-0500 Body mass index (BMI) [Ratio] 26.83 kg/m2 Dread Koo DO Work Phone: [facility] 08-05-2023 15:06-0500 Body weight 84.82 kg Dread Koo DO Work Phone: [facility] 08-05-2023 15:06-0500 Diastolic blood pressure 72 mm[Hg] Dread Koo DO Work Phone: [facility] 08-05-2023 15:06-0500 Heart rate 65 /min Dread Koo DO Work Phone: [facility] 08-05-2023 15:06-0500 Systolic blood pressure 112 mm[Hg] Dread Koo DO Work Phone: [facility] 07-14-2023 15:08-0500 Blood Pressure Location Moon HUNTER [facility] 07-14-2023 15:08-0500 Diastolic blood pressure 74 mm[Hg] Moon CASEL [facility] 07-14-2023 15:08-0500 Heart rate 72 /min Moon NILL [facility] [place] 07-14-2023 15:08-0500 Respiratory rate 16 /min Moon CASEL [facility] [place] 07-14-2023 15:08-0500 Systolic blood pressure 128 mm[Hg] Moon CASEL [facility] [place] 12-22-2022 15:50-0400 Body height 177.8 cm Rashmi Whitaker Other [facility] Other 12-22-2022 15:50-0400 Body mass index (BMI) [Ratio] 26.77 kg/m2 Rashmi Whitaker Other [facility] Other 12-22-2022 15:50-0400 Body weight 84.64 kg Rashmi Whitaker Other [facility] Other 12-22-2022 15:50-0400 Diastolic blood pressure 75 mm[Hg] Rashmi Whitaker Other [facility] Other 12-22-2022 15:50-0400 SaO2% (BldA) [Mass fraction] 98 % Rashmi Whitaker Other [facility] Other 12-22-2022 15:50-0400 Systolic blood pressure 124 mm[Hg] Rashmi Whitaker Other [facility] Other 12-10-2022 14:45-0400 Body height 177.8 cm Edilma Mena Other [facility] Other 12-10-2022 14:45-0400 Body mass index (BMI) [Ratio] 26.69 kg/m2 Edilma Malinmond Other [facility] Other 12-10-2022 14:45-0400 Body temperature 98.8 [degF] Edilma Mena Other [facility] Other 12-10-2022 14:45-0400 Body weight 84.37 kg Edilma Mena Other [facility] Other 12-10-2022 14:45-0400 Diastolic blood pressure 71 mm[Hg] Edilma Mena Other [facility] Other 12-10-2022 14:45-0400 Respiratory rate 18 /min Edilma Mena Other [facility] Other 12-10-2022 14:45-0400 SaO2% (BldA) [Mass fraction] 97 % Edilma Mena Other [facility] Other 12-10-2022 14:45-0400 Systolic blood pressure 131 mm[Hg] Edilma Malinmond Other [facility] Other 02-20-2022 10:01-0400 Body height 177.8 cm Ta Haddad Work Phone: [facility] 250 DO Work Phone: 02-20-2022 10:01-0400 Body mass index (BMI) [Ratio] 26.54 kg/m2 Ta L Valone Work Phone: [facility] 250 DO Work Phone: 02-20-2022 10:01-0400 Body surface area Derived from formula 2.02 m2 Ta Victor Valone Work Phone: [facility] 250 DO Work Phone: 02-20-2022 10:01-0400 Body weight 83.92 kg Ta Victor Valone Work Phone: [facility] 250 DO Work Phone: 02-20-2022 10:01-0400 Diastolic blood pressure 62 mm[Hg] Ta Victor Valone Work Phone: [facility] 250 DO Work Phone: 02-20-2022 10:01-0400 Heart rate 60 /min Ta Barnardone Work Phone: [facility] 250 DO Work Phone: 02-20-2022 10:01-0400 Systolic blood pressure 100 mm[Hg] Ta Barnardone Work Phone: [facility] 250 DO Work Phone: 10-18-2021 08:27-0400 Body height 177.8 cm Ta Barnardone Work Phone: [facility] DO Work Phone: 10-18-2021 08:27-0400 Body mass index (BMI) [Ratio] 27.55 kg/m2 Ta Victor Valone Work Phone: [facility] 250 DO Work Phone: 10-18-2021 08:27-0400 Body surface area Derived from formula 2.05 m2 Ta Victor Valone Work Phone: [facility] 250 DO Work Phone: 10-18-2021 08:27-0400 Body weight 87.09 kg Ta Victor Valone Work Phone: [facility] DO Work Phone: 10-18-2021 08:27-0400 Diastolic blood pressure 87 mm[Hg] Ta Victor Valone Work Phone: [facility] 250 DO Work Phone: 10-18-2021 08:27-0400 Heart rate 59 /min Ta Victor Valone Work Phone: [facility] 250 DO Work Phone: 10-18-2021 08:27-0400 Systolic blood pressure 108 mm[Hg] Ta Victor Valone Work Phone: [facility] 250 DO Work Phone: Encounters Encounter Date Encounter Type Care Provider Facility Start: 04-07-2024 End: 04-07-2024 Bamboo flowsheet Armond L [place] DO Work Phone: [facility] Start: 04-07-2024 End: 04-07-2024 Bamboo flowsheet Armond L [place] DO Work Phone: [facility] Start: 04-07-2024 End: 04-07-2024 Office outpatient visit 15 minutes Armond L [place] DO Work Phone: [facility] Comment on above: Allergic rhinitis, u nspecified seasonality, unspecified trigger Start: 04-07-2024 End: 04-07-2024 ambulatory ARMOND L CUTLER Not Available Start: 03-15-2024 End: 03-15-2024 ambulatory [facility] Ambulatory Start: 03-13-2024 End: 03-13-2024 ambulatory DO Armond L [place] Work Phone: [facility] Work Phone: Start: 03-13-2024 End: 03-13-2024 Patient encounter procedure DO Armond [place] Work Phone: [facility] Work Phone: Start: 01-21-2024 End: 01-21-2024 ambulatory ARMOND BAXTER Not Available Start: 01-16-2024 End: 01-18-2024 Evaluation and management of inpatient DO Armond Baxter Work Phone: [facility] [place] [facility] Work Phone: Start: 01-14-2024 End: 01-14-2024 Patient encounter procedure DO Armond Baxter Work Phone: [facility] Work Phone: Start: 01-14-2024 End: 01-14-2024 ambulatory DO Armond Baxter Work Phone: [facility] Work Phone: Start: 01-04-2024 End: 01-04-2024 ambulatory JOSE RUGGIERO Not Available Start: 12-23-2023 End: 12-23-2023 ambulatory GABRIEL Victor MARY JO Not Available Start: 09-01-2023 End: 09-02-2023 ambulatory Moon R NILL Facility: [facility] Start: 09-01-2023 End: 09-01-2023 Patient encounter procedure Moon R NILL General Surgery N[facility]/Said [facility] Start: 08-19-2023 End: 08-20-2023 ambulatory Moon R NILL Facility:[facility] Start: 08-19-2023 End: 08-19-2023 Patient encounter procedure Moon R NILL General Surgery Nill/Said [facility] Start: 08-12-2023 End: 08-13-2023 ambulatory JR Ta Haddad Work Phone: [facility] Work Phone: Start: 08-12-2023 End: 08-12-2023 Departed Referred JR Ta Haddad Work Phone: [facility] Start: 08-05-2023 End: 08-05-2023 Office consultation new/estab patient 60 min Dread Koo DO Work Phone: [facility] Comment on above: 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 (Primary Dx); Mixed hyperlipidemia; Paroxysmal atrial fibrillation (CMS/HCC); Pre-operative cardiovascular examination; Never smoked cigarettes Start: 08-05-2023 End: 08-05-2023 ambulatory [facility] Ambulatory Start: 08-05-2023 End: 08-05-2023 Encounter for preprocedural cardiovascular examination [facility] Start: 08-05-2023 End: 08-05-2023 Patient encounter status Dread Koo DO Work Phone: [facility] Work Phone: Start: 07-14-2023 End: 07-15-2023 ambulatory Moon HUNTER Facility: [facility] Start: 07-14-2023 End: 07-14-2023 Patient encounter procedure Moon HUNTER General Surgery Nill/Said [facility] Start: 12-22-2022 End: 12-22-2022 ambulatory Rashmi Whitaker Other [facility] Other Start: 12-22-2022 Office outpatient vi sit 15 minutes Rashmi Whitaker [facility] Start: 12-10-2022 End: 12-10-2022 ambulatory Edilma Mena Other [facility] Other Start: 12-10-2022 Office outpatient ne w 20 minutes Edilma Mena [facility] Start: 09-30-2022 Rx Renewal Ta berrios Work Phone: [facility] DO Work Phone: Start: 09-18-2022 Telephone encounter Ta Haddad Work Phone: [facility] 250 DO Work Phone: Start: 08-18-[address] 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 Start: 02-22-2022 End: 02-23-[address] JENNI RAMIREZ Facility:[facility] Start: 02-20-2022 Office outpatient vi sit 15 minutes Ta Haddad Work Phone: [facility] DO Work Phone: Start: 02-20-2022 ambulatory Dread Koo Facility: Start: 10-18-2021 ambulatory Ms. Shruthi Galloway Facility: Start: 10-18-2021 Office outpatient vi sit 25 minutes Ta Haddad Work Phone: [facility] 250 DO Work Phone: Start: 09-26-2021 End: 10-24-[address] DREAD KOO Facility:[facility] Start: 09-10-2021 Message Dread langford DO Work Phone: [facility] DO Work Phone: Start: 09-05-2021 End: 09-05-2021 ambulatory ALIYA MONCADA Facility:[facility] Start: 06-18-2021 End: 06-19-[address] TA HADDAD Facility:[facility] Start: 06-03-2021 End: 06-04-[address] TA HADDAD Facility:[facility] Start: 03-15-2021 End: 03-16-[address] TA HADDAD Facility:[facility] Start: 03-14-2021 End: 03-15-[address] TA HADDAD Facility:[facility] Start: 09-29-2016 End: 09-30-2016 Ambulatory NICOLASA LONGO Facility[facility] Procedures Date Procedure Procedure Detail Performing Clinician Start: 03-13-2024 COVID Antigen (POC) DO Armond [place] Work Phone: Start: 01-18-2024 CL LHC & COR Angio DO T imothy [place] Work Phone: Start: 01-16-2024 Plain chest X-ray DO Ti mothy [place] Work Phone: Start: 08-12-2023 Repair of left ingui nal hernia Moon HUNTER Start: 08-05-2023 ECG 12-LEAD DREAD LOVELACE Start: 08-05-2023 Ecg routine ecg w/le ast 12 lds w/i&r Dread Koo DO Work Phone: Start: 02-22-[address] COLLEEN HADDAD Comment on above: Performed By: #### H STROPN, BNP, CMP #### [facility] [address] [place] [address] Dr. Jaycee Mejias Start: 06-03-[address] COLLEEN HADDAD Comment on above: Performed By: #### H STROPN, BNP, CMP #### [facility] [address] [place] [address] Dr. Jaycee Mejias Start: 09-29-2016 ANESTH UPPER LEG VEI NS SURG ARTURO ELLIS Start: 09-29-2016 ENDOVENOUS LASER 1ST VEIN NICOLASA LONGO Start: 09-29-2016 VASCULAR SURGERY PROCEDURE NICOLASA LONGO Angioplasty of blood vessel Ta Haddad Work Phone: Angioplasty of blood vessel Moon HUNTER Cardiac catheterization Karlene Haddad Work Phone: Cardiac catheterization Jared HUNTER Catheter ablation of arrhythmogenic focus Ta Haddad Work Phone: Catheter ablation of arrhythmogenic focus Moon HUNTER Coronary artery sten t (physical object) Moon HUNTER Comment on above: x2 Hernia repair Ta berrios Work Phone: Myringoplasty Ta berrios Work Phone: Myringoplasty Moon HUNTER Operative procedure on hand Ta Haddad Work Phone: Repair of right ingu inal hernia Moon HUNTER Tonsillectomy Ta berrios Work Phone: Tonsillectomy Moon HUNTER NEGATED: Highlighted row has not occurred! Colonoscopy Ta Haddad Work Phone: Plan of Treatment Date Care Activity Detail Author Start: 02-22-2027 PROSTATE CANCER SCREENING DISCUSSION PROSTATE CANCER SCREENING DISCUSSION [facility] Start: 01-04-2025 End: 01-04-2025 Patient encounter procedure 01/04/2025 11:00 AM EDT Office Visit [facility] [address] [place] [address] Armond Baxter DO [address] [place] [address] [facility] Start: 12-22-2024 Medicare Annual Well ness (AWV) Medicare Annual Wellness (AWV) [facility] Start: 08-23-2024 End: 08-23-2024 Patient encounter procedure 08/23/2024 3:00 PM EST Office Visit [facility] [address] [facility] [address] [place] [id number] Dread Koo DO [address] [place] [address] [facility] Start: 04-07-2024 End: 04-07-2024 Patient encounter procedure 04/07/2024 8:00 AM EDT Office Visit [facility] [address] [place] [address] Armond Baxter, [address] [place] [address] Arrived [facility] Comment on above: Arrived Start: 02-28-2024 Influenza vaccination Influenza Vacc ine (#1) [facility] Start: 01-18-2024 [facility] Start: 01-17-2024 aPTT in Platelet poo r plasma by Coagulation assay [facility] Start: 01-17-2024 End: 01-17-2024 [facility] Start: 01-16-2024 [facility] Start: 01-16-2024 Referral to manufacturing mechanic [facility] Start: 01-16-2024 [facility] Start: 01-16-2024 Hospital admission [facility] Start: 01-16-2024 Fluoroscopy of Left Heart using Low Osmolar Contrast Fluoroscopy of Left Heart using Low Osmolar Contrast [facility] Start: 01-16-2024 Fluoroscopy of Multi ple Coronary Arteries using Low Osmolar Contrast Fluoroscopy of Multiple Coronary Arteries using Low Osmolar Contrast [facility] Start: 01-16-2024 Measurement of Cardi ac Sampling and Pressure, Left Heart, Percutaneous Approach Measurement of Cardiac Sampling and Pressure, Left Heart, Percutaneous Approach [facility] Start: 08-05-2023 FUV, Provider: Dread Koo, Status: Pen, Time: 9:30 AM FUV, Provider: Dread Koo, Status: Pen, Time: 9:30 AM [facility] DO Work Phone: Start: 02-27-2023 COVID-19 Vaccine ( season) COVID-19 Vaccine ( season) [facility] Start: 02-27-2023 Influenza vaccination Influenza Vacc ine (#1) [facility] Start: 08-21-2022 FUV, Provider: Dread Koo, Status: Jorge L, Time: 9:20 AM FUV, Provider: Dread Koo, Status: Pen, Time: 9:20 AM [facility] 250 DO Work Phone: Start: 02-27-2022 Influenza vaccination INFLUENZA (#1) [facility] Start: 02-20-2022 FUV, Provider: Dread Koo, Status: Pen, Time: 9:50 AM FUV, Provider: Dread Koo, Status: Pen, Time: 9:50 AM [facility] 250 DO Work Phone: Start: 10-01-2021 FUV, Provider: Shruthi Young, Status: Pen, Time: 9:00 AM FUV, Provider: Shruthi Young, Status: Pen, Time: 9:00 AM [facility] 250 DO Work Phone: Start: 08-13-2021 COVID-19 VACCINE (3 - Booster for Nida series) COVID-19 VACCINE (3 - Booster for Nida series) [facility] Start: 06-29-2021 DEPRESSION ASSESSMENT DEPRESSION ASS ESSMENT [facility] Start: 2008 SHINGRIX VACCINE (1 of 2) SHINGRIX VACCINE (1 of 2) [facility] Start: 2008 Zoster Vaccines (1 of 2) Zoste r Vaccines (1 of 2) [facility] Start: 2003 COLOGUARD (FIT-DNA) COLOGUARD (FIT-D NA) [facility] Start: 2003 Colonoscopy COLONOSCOPY [facility] Start: 2003 COLORECTAL CANCER SCREENING COLORECTAL CANCER SCREENING [facility] Start: [address] COLONOGRAPHY [facility] Start: 2003 DIABETES SCREEN DIABETES SCREEN [facility] Start: 2003 FECAL OCCULT BLOOD FECAL OCCULT BLOO D [facility] Start: 2003 SIGMOIDOSCOPY SIGMOIDOSCOPY [facility] Start: 1993 LIPID SCREEN LIPID SCREEN [facility] Start: 1980 DTaP/Tdap/Td Vaccine s (1 - Tdap) DTaP/Tdap/Td Vaccines (1 - Tdap) [facility] Start: 1977 Urine microalbumin profile DTAP,TDAP,TD (1 - Tdap) [facility] Start: 1976 Diabetes mellitus screening Diabetes Screening [facility] Start: 1976 HEPATITIS C SCREENING HEPATITIS C [facility] Start: 1976 Hepatitis C screening Hepatitis C [facility] Start: 1976 HIV SCREENING HIV SCREENING [facility] Start: 1964 Pneumococcal Vaccine : 65+ Years (1 - PCV) Pneumococcal Vaccine: 65+ Years (1 - PCV) [facility] Start: 1959 MMR Vaccines (1 of 1 - Standard series) MMR Vaccines (1 of 1 - Standard series) [facility] Start: 1958 Annual wellness visit Medicare Initial Physical (IPPE) [facility] Start: 1958 Lipid panel Lipid Panel [facility] Start: 1958 Screening for malign ant neoplasm of colon [facility] aPTT in Platelet poo r plasma by Coagulation assay [facility] Basophils [#/volume] in Blood by Automated count [facility] Basophils/100 leukoc ytes in Blood by Automated count [facility] Eosinophils/100 leukocytes in Blood by Automated count [facility] Erythrocyte distribu tion width [Ratio] by Automated count [facility] Erythrocytes [#/volu me] in Blood [facility] Hematocrit [Volume Fraction] of Blood [facility] Hemoglobin [Mass/vol ume] in Blood [facility] INR in Platelet poor plasma by Coagulation assay [facility] Leukocytes [#/volume ] corrected for nucleated erythrocytes in Blood by Automated coun [facility] Leukocytes [#/volume ] in Blood [facility] Lymphocytes [#/volum e] in Blood by Automated count [facility] Lymphocytes/100 leukocytes in Blood by Automated count [facility] MCH [Entitic mass] b y Automated count [facility] MCHC [Mass/volume] b y Automated count [facility] MCV [Entitic volume] by Automated count [facility] Monocytes [#/volume] in Blood by Automated count [facility] Monocytes/100 leukoc ytes in Blood by Automated count [facility] Neutrophils [#/volum e] in Blood by Automated count [facility] Neutrophils/100 leukocytes in Blood by Automated count [facility] Nucleated erythrocyt es [Presence] in Blood by Automated count [facility] Patient Education Know your Meds [facility] Work Phone: Patient referral [facility] Work Phone: Platelet mean volume [Entitic volume] in Blood by Automated count [facility] Platelets [#/volume] in Blood [facility] Prothrombin time (PT) [facility] Immunizations Immunization Date Immunization Notes Care Provider Fa cility 12-23-2023 Pneumococcal Conjuga te PCV 20 Armond Baxter DO Work Phone: [facility] 06-18-2021 Pfizer-BioNTElixir [employer] COVID-19 Vacc 30 MCG/0.3ML Intramuscular Suspension Ta Haddad Work Phone: General [facility] 06-12-2021 COVID-19 mRNA, Comirnaty (Pfizer) Ta Haddad Work Phone: [facility] 09-03-2020 Nida COVID-19 Vaccine 0.5 ML Intramuscular Suspension Ta Haddad Work Phone: General [facility] 06-11-2009 novel ubamidfoc-T5L2-01, preservative-free, injectable Ta Haddad Work Phone: [facility] [facility] DO Work Phone: NEGATED: Highlighted row has not occurred!07-14-2023 influenza virus vaccine, unspecified formulation Moon HUNTER General [facility] Payers Date Payer Category Payer Medicare [id number] 2023 Unknown 2023 Medicare [id number] 2019 Unknown [id number] 1959 Self-pay [id number] 1959 Self-pay 1958 Unknown [id number] [id number] 1958 Unknown [id number] 2.16.840.1.236928.3.579.2.593 1958 Unknown [id number] 2.16.840.1.758981.3.579.2.593 1958 Unknown [id number] 2.16.840.1.110729.3.579.2.593 1958 Unknown [id number] 2.16.840.1.856921.3.579.2.356 1958 Unknown [id number] 2.16.840.1.018396.3.579.2.356 1958 Unknown [id number] 2.16.840.1.652009.3.579.2.356 1958 Unknown [id number] 2.16840.1.380327.3.579.2.727 1958 Unknown [id number] 2.16.840.1.519140.3.579.2.727 1958 Unknown [id number] 2.16.840.1.382850.3.579.2.727 1958 Unknown [id number] 2.16.840.1.276738.3.579.2.727 1958 Unknown [id number] 2.840.1.093792.3.579.2.1259 1958 Unknown [id number] 2.16.840.1.078569.3.579.2.1259 1958 Unknown [id number] 2.16.840.1.076940.3.579.2.1259 1958 Unknown [id number] 2.16.840.1.828999.3.579.2.1259 1958 Unknown [id number] 2.16.840.1.544514.3.579.2.1259 1958 Unknown [id number] 2.16.840.1.070779.3.579.2.1244 1958 Unknown [id number] 2.16.840.1.674796.3.579.2.1244 Unknown [id number] Unknown [id number] 2.16.840.1.675863.3.579.2.593 Unknown [id number] 2.16.840.1.913776.3.579.2.593 Unknown [id number] 2.16.840.1.505733.3.579.2.593 Unknown [id number] Unknown [facility] [id number] Unknown [id number] 2.16.840.1.547164.3.579.2.531 Unknown [id number] 2.840.1.327548.3.579.2.531 Unknown [id number] 2.16840.1.624685.3.579.2.531 Social History Date Type Detail Facility Start: 08-05-2023 End: 01-19-2024 Never a smoker Never a smoker [facility] Comment on above: a little green tea; [facility] consumption unknown [facility] Start: 1960 Sex Assigned At Not on file C [facility] Start: 08-05-2023 End: 01-19-2024 Sex Assigned At [facility] Start: 07-14-2023 End: 12-23-2023 Tobacco smoking status Never smoked tobacco (finding) [facility] [place] Tobacco smoking status Never [facility] Start: 08-05-2023 End: 12-23-2023 Tobacco use and exposure Smokeless tobacco non-user [facility] Work Phone: Start: 08-05-2023 Alcohol intake Lifetime non-d shon (finding) [facility] Work Phone: Start: 07-26-2023 End: 08-05-2023 Exposure to SARS-CoV-2 (event) Not sure [facility] Start: 1960 Sex Assigned At Male F [facility] History of tobacco use Passive smoker [facility] Start: 01-21-2024 End: 04-07-2024 Alcoholic beverage intake Ex-drinker (finding) [facility] Do you belong to any clubs or organizations such as jainism groups, unions, fraternal or athletic groups, or school groups? No [facility] Are you now , , , , never or living with a partner? [facility] How often to you hav e a drink containing alcohol? Never [facility] How hard is it for y ou to pay for the very basics like food, housing, medical care, and heating Not very hard [facility] Do you feel stress - tense, restless, nervous, or anxious, or unable to sleep at night because your mind is troubled all the time - these days [OSQ] Only a little [facility] (I/We) worried wheth er (my/our) food would run out before (I/we) got money to buy more. Never true [facility] Start: 12-23-2023 Alcohol Comment Quit drinking 2 years ago [facility] Medical Equipment Procedure Code Equipment Code Equipment Origin al Text Equipment Identifier Dates Drug-eluting coronary artery stent, [id number] lymer-coated ()[id number] FDA Start: 09-09-2021 Drug-eluting coronary artery stent, [id number] lymer-coated ()[id number] FDA Start: 09-09-2021 Goals Date Patient Goal Desired Activity /State Functional Status Date Assessment Result Facility 01-18-2024 Functional status Patient at Baseline [facility] Work Phone: 07-14-2023 Functional Status N/A [facility] Mental Status Date Assessment Result Facility 01-18-2024 Cognitive function Cognitive Sta tus Patient at Baseline [facility] Work Phone: Clinical Notes 06-27-2022 to 04-07-2024 Armond Baxter, DO - 04/07/2024 8:00 AM EDT Note Date & Type Note Facility 04-07-2024 History of Presen t illness Narrative Images from the original note were not included. SUBJECTIVE: HPI: Jace Mata is a 63 y.o. male who presents with chief complaint of No chief complaint on file. Pt presents for continued post nasal drainage. Pt states that back on Mar 07 him and his family did get sick and once this cleared up he was left with the continued nasal drainage. He notes that this does get worse at night as everything drains into his throat. OTC treatment for Mucinex, Zyrtec, Flonase to help dry this out. I have reviewed and reconciled the history and medication list with the patient today. Depression: Not at risk (12/23/2023) PHQ-2 PHQ-2 Score: 0 reports that he has never smoked. He has been exposed to tobacco smoke. He has never used smokeless tobacco. He reports that he does not currently use alcohol. He reports that he does not use drugs. OBJECTIVE: 09/30/2017 12:00 PM 10/12/2017 12:00 PM 12/23/2023 2:54 PM 12/23/2023 3:00 PM 01/04/2024 1:33 PM 01/21/2024 2:45 PM 04/07/2024 8:01 AM Vitals BMI 27.67 kg/m2 27.26 kg/m2 26.59 kg/m2 26.59 kg/m2 26.86 kg/m2 26.69 kg/m2 27.98 kg/m2 BSA (m2) 2.17 m2 2.15 m2 2.04 m2 2.04 m2 2.05 m2 2.04 m2 2.09 m2 Systolic 133 136 130 130 136 120 128 Diastolic 81 85 68 68 66 70 64 Heart Rate 66 66 60 75 56 SpO2 98 % 98 % 96 % 95 % 98 % Temp 96.5 F 96.5 F 96.7 F 97.5 F Height (in) 6' 6' 5' 10 5' 10 5' 10 5' 10 5' 10 Weight (lb) 204 201 185.3 185.3 187.2 186 195 Visit Report Report Report Report Report Report Report Report Physical Exam Constitutional: General: He is not in acute distress. Appearance: He is not ill-appearing. HENT: Head: Normocephalic. Right Ear: Tympanic membrane and ear canal normal. Left Ear: Tympanic membrane and ear canal normal. Nose: Congestion and rhinorrhea (clear) present. Mouth/Throat: Mouth: Mucous membranes are moist. Pharynx: Oropharynx is clear. No oropharyngeal exudate. Eyes: Conjunctiva/sclera: Conjunctivae normal. Cardiovascular: Rate and Rhythm: Normal rate and regular rhythm. Heart sounds: No murmur heard. Pulmonary: Effort: Pulmonary effort is normal. Breath sounds: Normal breath sounds. No wheezing. Abdominal: General: Abdomen is flat. There is no distension. Tenderness: There is no abdominal tenderness. Musculoskeletal: General: No deformity. Normal range of motion. Cervical back: Normal range of motion. No tenderness. Lymphadenopathy: Cervical: No cervical adenopathy. Skin: General: Skin is warm and dry. Neurological: General: No focal deficit present. Mental Status: He is alert and oriented to person, place, and time. Psychiatric: Mood and Affect: Mood normal. Behavior: Behavior normal. Thought Content: Thought content normal. Judgment: Judgment normal. No results found for this or any previous visit (from the past 672 hour(s)). ASSESSMENT AND PLAN: Assessment/Plan Diagnoses and all orders for this visit: Allergic rhinitis, unspecified seasonality, unspecified trigger - triamcinolone acetonide (Kenalog-40) injection 40 mg Discussed post viral syndrome vs allergic nature of current sxs. Recommend symptomatic/supportive tx. Return precautions discussed. Patient Active Problem List Diagnosis Allergic rhinitis Conductive hearing loss, bilateral Coronary artery disease involving tuscarora coronary artery of tuscarora heart without angina pectoris (CMS/HCC) Mixed hyperlipidemia (CMS/HCC) Paroxysmal atrial fibrillation (CMS/HCC) Past Medical History: Diagnosis Date Atrial fibrillation (CMS/HCC) HL (hearing loss) Non-ST elevation AK (NSTEMI) ([facility]/HCC) 12/23/2023 documented in this encounter [facility] 01-18-2024 Discharge summary Note Date/Time January 18, 2024 2:59pm [facility] [address] [place] [address] Discharge Summary Signed Patient: Jace Mata MR#: [id number] : 1960 Acct:[id number] Age/Sex: 63 / M Adm Date: 4 Loc: Room: 2E4732-[address]: Roby Reinoso MD Copies to: MD Armond Serra DO~ Providers Date of Discharge: 01/18/24 Discharging Provider: Roby Reinoso Primary Care Provider: Armond Baxter Consults: 01/16/24 18:24 Consult to Cardiology Routine Comment: Consulting Provider: [facility] Reason For Exam: nstemi Has Provider Been Notified: Yes Date of Notification: 01/17/24 Time of Notification: 08:08 Discharge Diagnosis (1) Acute non-ST segment elevation myocardial infarction: (2) Stented coronary artery: Final Diagnosis Final Discharge Diagnosis: As above Summary Hospital Course Hospital course: Patient is pleasant 63-year-old male with past medical history of coronary artery disease. Presented to ER with complaint of chest discomfort while ridinghis bike. In the ER his labs showed elevated troponin and was admitted for non-STEMI. His troponin peaked to 907.3 was continued on heparin drip. Cardiology was consulted and patient underwent cardiac catheterization which showed widely patent stent with minimal coronary artery disease. Apparently patient was fasting for 15 hours on Thursday and underwent 30 mile bike ride contributing to his symptoms. He has been pain-free throughout hospital stay even on exertion. Patient has been cleared by cardiology to be discharged home. 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 1. You were given conscious sedation. Do not operate a vehicle, power tools, make important decisions, or drink alcohol for 24 hours. You might be drowsy orlight headed. Return to the Emergency Room if you have trouble breathing, walking or nausea and vomiting. 2. FOR BLEEDING: Apply continuous pressure to the site and call 911. 3. Operative Site Care: Keep the dressing clean and dry. You may change the dressing only if soiled or wet. You may remove the dressing the following morning. You may wash over the puncture site in the shower. If the puncture site is at the wrist no soaking for 3 days. Some bruising or slight swelling may be present. -Signs of infection are redness, warmth, swelling, getting more sore, colored drainage, fever or chills. -Should the arm or leg become cold, numb, blue or white, call the manufacturing mechanic immediately. 4. ACTIVITY: You are advised to go directly home from the hospital. Restrict your activities for the rest of the day. Resume light or normal activities tomorrow. Do not engage in any activity that will stress the puncture site. Avoid heavy lifting (over 15 lbs.), straining or bending at the catheter site for 48 hours after discharge. If the puncture site is at the wrist do not manipulate wrist for 24 hours and no lifting more than 3 lbs for 3 days. 5. DIET:You may eat your regular diet when you desire. 6. MEDICATIONS: Resume your daily prescription schedule. Prescriptions may be sent with you if needed. Use as directed. When taking pain medications, you may experience dizziness or drowsiness. Do not drink alcohol or drive when taking pain medications. 7. If you should experience episodes of angina e.g. chest discomfort, heaviness, tightness, pressure, burning, with or without radiation to the neck, jaws, arms, or back- Use 1 Nitrostat under your tongue every 5-10 minutes, and up to 3 tablets. If no relief- Call 911 and go to the nearest Emergency Room. -Notify the office for recurrent angina, chest pain or other concerns. You may NOT drive yourself home! Follow the medication instructions provided on your discharge. If the dosages and instructions on this sheet differ from the dosage and instructions on the bottle, follow the instructions on the bottle. [facility] is not responsible for incorrect prescription information provided by thepatient during their visit. Do not stop your medications without consulting your health care provider. Please take the list with you to your next doctor's appointment. Instructions: Know your Meds Prescriptions: Continued albuterol sulfate 90 mcg/actuation HFA aerosol inhaler 1 puff INHALATION QID PRN (Reason: Dyspnea) Patient Comments: INHALE 2 PUFFS INTO THE LUNGS 4 TIMES A DAY ferrous sulfate [iron] 325 mg (65 mg iron) Tablet 325 mg PO DAILY omega-3 fatty acids 300 mg Capsule 1,500 mg PO DAILY cholecalciferol (vitamin D3) 100 mcg (4,000 unit) Capsule 100 mcg PO DAILY nitroglycerin 0.4 mg Tablet, Sublingual 0.4 mg sublingual Q5M PRN (Reason: Chest Pain) 30 Days Qty: 25 3RF aspirin [Children's Aspirin] 81 mg Tablet,Chewable 81 mg PO DAILY Qty: 0 0RF Hold Instructions: Hold until seen by your Primary Care Physician metoprolol tartrate 25 mg Tablet 12.5 mg PO BID 30 Days Qty: 30 12RF rosuvastatin 5 mg tablet 5 mg PO QHS 30 Days Qty: 30 12RF ramipril 2.5 mg capsule 2.5 mg PO QHS 30 Days Qty: 30 12RF coenzyme Q10 [CoQ-10] 100 mg Capsule 300 mg PO DAILY 30 Days Qty: 90 12RF Discontinued prasugrel [Effient] 10 mg Tablet 10 mg PO DAILY 30 Days Qty: 30 12RF Follow Up: Fabian Koo DO [Active Staff - D.O.] - Armond Baxter DO [Primary Care Provider] - 01/21/24 2:20 pm (Follow-up with your Primary Care Provider, call office to reschedule if needed. ) Exam Physical Exam Vital Signs: Temp Pulse Resp BP Pulse Ox O2 Del Method 97.6 F 66 16 132/87 95 Room Air 01/18/24 14:30 01/18/24 14:45 01/18/24 14:30 01/18/24 14:45 01/18/24 14:45 01/18/24 14:45 Const Orientation: alert, awake and oriented x3 Resp Effort & Inspection: normal respiratory effort and able to speak in complete sentences Auscultation: no rales, no rhonchi and no wheezes Cardio Rate: regular rate Rhythm: regular rhythm Heart Sounds: S1 normal and S2 normal GI Palpation: soft, not firm, no guarding and nontender Neuro General: patient alert, patient awake, patient oriented x3, moves all extremities, no focal motor deficits and CN's II-XI intact bilaterally Cognition: normal cognition Speech: speech normal Motor: muscle tone normal throughout and strength 5/5 throughout Sensory Exam: no sensory deficits noted Extrem General: no clubbing, cyanosis or edema and no calf tenderness Diagnostic Studies Completed and Pending Studies Pending studies at discharge: 01/17/24 09:55 EKG [ECG 12 lead ECG] Stat Labs on day of discharge: 01/18/24 04:45: APTT 55.3 H Documented By: Roby Reinoso MD 01/18/24 1457 Signed By: <Electronically signed by Roby Reinoso MD> 01/18/24 1459 [facility] Work Phone: 1(804) 246-458207-22-2024 Progress note Author W Hayes [facility] January 18, 2024 2:33pm Note Date/Time January 18, 2024 2:33 pm [facility] [address] [place] [address] Cardiology Progress Note Signed Patient: Jace Mata MR#: [id number] : 1960 Acct:[id number] Age/Sex: 63 / M Adm Date: 4 Loc: Room: [address] [place] [address] Type: ADM IN Attending Dr: Roby Reinoso MD Copies to: ~ Date of Service: 01/18/2024 Subjective Principal diagnosis: Troponin elevation associated with exertion Interval history: Mr. Mata is a 63 year old male with known history of coronary disease and previous PCI to the mid LAD and distal RCA 2 years ago presented to hospital complaining of retrosternal chest heaviness radiating to the left arm. Patient reports he is an avid cyclist. After riding about 20 miles he started to have apressure and heaviness in his chest. He called his who came and assisted him. Nitroglycerin was given with some improvement ultimately the patient was brought here to the hospital where he was started on IV heparin and was given further nitroglycerin with complete resolution of his symptoms. His initial EKGwas nonacute. His cardiac enzyme showed serial rise consistent with acute coronary syndrome. Patient report he recently stopped his aspirin anticipating proceeding with elective screening Colonoscopy. Otherwise patient report compliance with diet medication and exercise.. His troponin peaked around 650 Interim evaluation 01/18/2024: Patient admits that he underwent 15-hour fast prior to his 20+ bike mile ride yesterday; this likely led to his relative volume depletion as well as energy depletion leading to a type II non-ST elevation AK event. Plan is to proceed with diagnostic heart catheterization torule out ischemic component. Exam Physical Exam Vital Signs: Temp Pulse Resp BP Pulse Ox O2 Del Method 97.4 F L 52 L 17 113/42 L 99 Room Air 01/18/24 11:44 01/18/24 11:44 01/18/24 11:44 01/18/24 11:44 01/18/24 11:44 01/18/24 11:44 Const General: cooperative, healthy appearing, comfortable, no acute distress and welldeveloped Nutritional Appearance: average body habitus Orientation: alert, awake and oriented x3 HEENT Head: normal to inspection Neck Neck: normal visual inspection Chest Chest palpation & inspection: normal inspection of the chest Resp Auscultation: clear to auscultation bilaterally Cardio Palpation: normal PMI Rate: regular rate Rhythm: regular rhythm Heart Sounds: S1 normal and S2 normal Pulses: radial pulses present GI Palpation: soft Skin General: no rashes or lesions noted Neuro General: patient alert, patient awake and patient oriented x3 Cognition: normal cognition Speech: speech normal Extrem General: no clubbing, cyanosis or edema Objective Labs 01/17/24 04:21 01/16/24 11:15 Labs: Laboratory Results - last 24 hr 01/18/24 04:45 APTT 55.3 H A&P - Cardiology (1) Acute non-ST segment elevation myocardial infarction: Code(s): I21.4 - Non-ST elevation (NSTEMI) myocardial infarction (2) Stented coronary artery: Code(s): Z95.5 - Presence of coronary angioplasty implant and graft Plan Assessment 1. Acute coronary syndrome. Peak troponin close to 650. With previous historyof PCI's to the mid LAD and distal RCA. Contributing element could be recent discontinuation of aspirin in anticipation of elective screening colonoscopy 2. Hyperlipidemia 3. Mildly overweight Plan 1. Standard therapy for acute coronary syndrome including aspirin, IV heparin, beta-blockers and continue home medication 2. Will proceed with cardiac catheterization in a.m. Risk, benefits alternatives reviewed with patient at great length he understood and agreed Documented By: Fabian Koo DO 01/18/24 1430 Signed By: <Electronically signed by Fabian Koo, > 01/18/24 1433 [facility] Work Phone: 1([phone]) 585-602107-22-2024 [facility] Progress note Author Roby Reinoso [facility] January 18, 2024 7:35am Note Date/Time January 18, 2024 7:35 am [facility] [address] [place] [address] Hospitalist Progress Note Signed Patient: Jace Mata MR#: [id number] : 1960 Acct:[id number] Age/Sex: 63 / M Adm Date: 4 Loc: Room: [address] [place] [address] Type: ADM IN Attending Dr: Roby Reinoso MD Copies to: ~ Date of Service: 01/18/2024 Subjective Subjective Narrative: Patient examined while sitting at bedside with no overnight event. He is currently n.p.o. for cardiac cath later today. Denies any further chest pain since he has been in the hospital. He has been ambulating in the hallway without getting chest pain or shortness of breath. Exam Physical Exam Vital Signs: Temp Pulse Resp BP Pulse Ox O2 Del Method 97.8 F 69 16 106/68 97 Room Air 01/18/24 04:00 01/18/24 04:00 01/18/24 04:00 01/18/24 04:00 01/18/24 04:00 01/18/24 04:00 Const Orientation: alert, awake and oriented x3 Resp Effort & Inspection: normal respiratory effort and able to speak in complete sentences Auscultation: no rales, no rhonchi and no wheezes Cardio Rate: regular rate Rhythm: regular rhythm Heart Sounds: S1 normal and S2 normal GI Palpation: soft, not firm, no guarding and nontender Neuro General: patient alert, patient awake, patient oriented x3, moves all extremities, no focal motor deficits and CN's II-XI intact bilaterally Cognition: normal cognition Speech: speech normal Motor: muscle tone normal throughout and strength 5/5 throughout Sensory Exam: no sensory deficits noted Extrem General: no clubbing, cyanosis or edema and no calf tenderness Objective Lab Results 01/17/24 04:21 01/16/24 11:15 Meds Allergies and Active Meds Allergies No Known Allergies Allergy (Verified 01/16/24 10:36) Active Meds: Active Medications Generic Name Dose Route Start Last Admin Trade Name Crescencio PRN Reason Stop Dose Admin Acetaminophen 650 mg 01/16/24 18:24 Acetaminophen 325 Mg Tablet PO 01/15/25 18:23 Q6HR PRN Pain Scale 1 - 3 or fever Albuterol 1 puff 01/16/24 18:26 Albuterol Hfa 60 Puff/8 Gram Inhaler INHALATION 01/15/25 18:25 QID PRN Dyspnea Aspirin 81 mg 01/17/24 09:00 01/17/24 09:34 Aspirin 81 Mg Tab.Chew PO 01/16/25 08:59 81 mg DAILY LORENA Administration Atorvastatin Calcium 10 mg 01/16/24 22:00 01/17/24 21:37 Atorvastatin 10 Mg Tablet PO 01/15/25 21:59 10 mg QHS LORENA Administration Heparin Sodium (Porcine) 3,300 unit 01/16/24 16:44 01/16/24 23:52 Heparin *Protocol Bolus* 5,000 Unit/Ml Vial 40 unit/kg (3300 unit) 01/15/25 16:43 3,300 unit IV-PUSH Administration PROTOCOL PRN PTT 40-53 Heparin Sodium (Porcine) 4,000 unit 01/16/24 16:44 Heparin *Protocol Bolus* 5,000 Unit/Ml Vial IV-PUSH 01/15/25 16:43 PROTOCOL PRN PTT < 40 Hydralazine HCl 10 mg 01/16/24 18:24 Hydralazine 20 Mg/Ml Vial IV-PUSH 01/15/25 18:23 Q4H PRN Hypertension Heparin Sodium/Sodium Chloride 25,000 unit in 250 mls @ 10 mls/hr 01/16/24 16:48 01/17/24 15:44 Heparin IV 01/15/25 16:44 1,200 units/hr .Q24H LORENA 12 mls/hr Administration Protocol 1,000 UNITS/HR Dextrose/Sodium Chloride 1,000 mls @ 100 mls/hr 01/18/24 09:00 5 % Dextrose-0.45 % Nacl IV 01/17/25 08:59 .Q10H LORENA Lisinopril 10 mg 01/16/24 22:00 01/17/24 21:37 Lisinopril 10 Mg Tablet PO 01/15/25 21:59 10 mg QHS LORENA Administration Metoprolol Tartrate 12.5 mg 01/16/24 21:00 01/17/24 21:37 Metoprolol Tartrate 12.5 Mg Tablet PO 01/15/25 20:59 12.5 mg BID LORENA Administration Miscellaneous Information 1 each 01/17/24 12:00 Consult To Pharmacy MISCELLANE 01/16/25 11:59 .PHACONSULT PRN ZZ.Pharmacy Consult Protocol Morphine Sulfate 2 mg 01/16/24 18:24 Morphine Sulfate 2 Mg/Ml Vial IV-PUSH Q4H PRN Pain Scale 8 - 10 Nitroglycerin 0.4 mg 01/16/24 18:26 Nitroglycerin 0.4 Mg Tab.Subl SUBLINGUAL 01/15/25 18:25 Q5MIN.X3 PRN Chest Pain Potassium Chloride 40 meq 01/17/24 12:00 Potassium Chloride Er 20 Meq Tab.Er.Prt PO STAT PRN Hypokalemia Sodium Chloride 0 ml 01/16/24 10:35 Sodium Chloride 0.9 % 10 Ml Syringe IV-PUSH 01/15/25 10:34 PRN PRN Flush Sodium Chloride 0 ml 01/17/24 12:00 Sodium Chloride 0.9 % 10 Ml Syringe IV-PUSH 01/16/25 11:59 PRN PRN Flush A&P - Hospitalist Assessment/Plan (1) Acute non-ST segment elevation myocardial infarction: Plan Denies further chest pain and remains on heparin drip. Appreciate cardiology consultation plan for cardiac cath later today. Continue aspirin, statin, metoprolol and lisinopril. Blood pressure remains well-controlled. Continue sublingual nitroglycerin as needed. Discharge disposition depending upon cardiac cath and cardiology recommendation. Documented By: Roby Reinoso MD 01/18/24 0733 Signed By: <Electronically signed by Roby Reinoso MD> 01/18/24 0735 [facility] Work Phone: 1(317) 654-722207-21-2024 Consult note Author Brennon Geller [facility] January 17, 2024 12:02pm Note Date/Time January 17, 2024 11:4 9am [facility] [address] [place] [address] Cardiology Consult Note Signed Patient: Jace Mata MR#: [id number] : 1960 Acct:[id number] Age/Sex: 63 / M Adm Date: 4 Loc: Room: [address] [place] [address] Type: ADM IN Attending Dr: Roby Reinoso MD Copies to: MD Brennon Serra MD Timothy L Cutler DO~ Cardiology HPI History of Present Illness Consult Date: 01/17/24 Reason for Consult: Chest pain and evidence of acute coronary syndrome HPI: Mr. Mata is a 63 year old male with known history of coronary disease and previous PCI to the mid LAD and distal RCA 2 years ago presented to hospital complaining of retrosternal chest heaviness radiating to the left arm. Patient reports he is an avid cyclist. After riding about 20 miles he started to have apressure and heaviness in his chest. He called his who came and assisted him. Nitroglycerin was given with some improvement ultimately the patient was brought here to the hospital where he was started on IV heparin and was given further nitroglycerin with complete resolution of his symptoms. His initial EKGwas nonacute. His cardiac enzyme showed serial rise consistent with acute coronary syndrome. Patient report he recently stopped his aspirin anticipating proceeding with elective screening Colonoscopy. Otherwise patient report compliance with diet medication and exercise.. His troponin peaked around 650 Review of Systems Review of Systems Review of systems: No other complaint of abnormal mention above [facility] Medical History (Updated 01/16/24 @ 22:06 by Adrian Barraza RN) Hernia Surgical History (Updated 01/16/24 @ 22:06 by Adrian Barraza RN) H/O hand surgery History of tympanoplasty Stented coronary artery x2 S/P hernia surgery Problem List clean-up per request of Phys. EHR Cmte History of cardiac radiofrequency ablation Problem List clean-up per request of Phys. EHR Cmte Family History Father Myocardial infarct Hx of CABG Esophageal cancer Mother Breast cancer Hypertension Social History Smoking Status: Never smoker Substance Use Type: None Substance Abuse Comment: occasional Meds Medications and Allergies Allergies No Known Allergies Allergy (Verified 01/16/24 10:36) Home Medications albuterol sulfate 90 mcg/actuation aerosol inhaler 1 puff inhalation QID PRN Dyspnea 09/09/21 [History Confirmed 01/16/24] cholecalciferol (vitamin D3) 100 mcg (4,000 unit) capsule 100 mcg PO DAILY 09/09/21 [History Confirmed 01/16/24] ferrous sulfate 325 mg (65 mg iron) tablet (iron) 325 mg PO DAILY 09/09/21 [History Confirmed 01/16/24] omega-3 fatty acids 300 mg capsule 1,500 mg PO DAILY 09/09/21 [History Confirmed 01/16/24] aspirin 81 mg chewable tablet (Children's Aspirin) 81 mg PO DAILY #0 tabs 09/10/21 [Rx Confirmed 01/16/24] coenzyme Q10 100 mg capsule (CoQ-10) 300 mg (3 x 100 mg) PO DAILY 30 days #90 caps 09/10/21 [Rx Confirmed 01/16/24] metoprolol tartrate 25 mg tablet 12.5 mg (1/2 x 25 mg) PO BID 30 days #30 tabs 09/10/21 [Rx Confirmed 01/16/24] nitroglycerin 0.4 mg sublingual tablet 0.4 mg sublingual Q5M PRN Chest Pain 30 days #25 tabs 09/10/21 [Rx Confirmed 01/16/24] prasugrel 10 mg tablet (Effient) 10 mg PO DAILY 30 days #30 tabs 09/10/21 [Rx Confirmed 01/16/24] ramipril 2.5 mg capsule 2.5 mg PO QHS 30 days #30 caps 09/10/21 [Rx Confirmed 01/16/24] rosuvastatin 5 mg tablet 5 mg PO QHS 30 days #30 tabs 09/10/21 [Rx Confirmed 01/16/24] Exam Physical Exam Vital Signs: Temp Pulse Resp BP Pulse Ox O2 Del Method 97.4 F L 59 L 18 117/73 97 Room Air 01/17/24 11:21 01/17/24 11:21 01/17/24 11:21 01/17/24 11:21 01/17/24 11:21 01/17/24 11:21 Const General: cooperative, comfortable, no acute distress and well developed HEENT Head: atraumatic Mouth: oral mucosae normal Eyes General: appearance normal, both eyes and all related structures Pupils: PERRL Neck Neck: normal visual inspection, supple and no lymphadenopathy noted Neck mass: No Thyroid: thyroid normal Carotids: normal carotid upstroke Chest Chest palpation & inspection: normal inspection of the chest Resp Effort & Inspection: normal respiratory effort Auscultation: clear to auscultation bilaterally Cardio Palpation: normal PMI Rate: regular rate Rhythm: regular rhythm Heart Sounds: S1 normal and S2 normal GI Palpation: soft and no hepatosplenomegaly Percussion: normal to percussion Auscultation: normal bowel sounds Skin General: no rashes or lesions noted and dry skin Neuro General: patient alert, patient awake, patient oriented x3, tone normal and moves all extremities Extrem General: full ROM, capillary refill normal and no clubbing, cyanosis or edema Psych Mental Status: mental status grossly normal GABRIEL Risk Score GABRIEL Risk Score Predictor Historical: Age > 65 Years Old, 3 or more Risk Factors: FHx,HTN,elevated cholesterol,DM,active smoker, Known CAD Stenosis >/=50% and ASA use in Past 7 Days Presentation: Recent (>/=24hr) Angina and Increased Cardiac Marker Score Risk Score (0-7): 6 Results - Cardiology Labs 01/17/24 04:21 01/16/24 11:15 Lab results: Cardiac Enzymes 01/16/24 Range/Units 11:15 Total Creatine Kinase 150 (30-223) U/L CBC 01/16/24 01/17/24 Range/Units 21:23 04:21 RBC 4.87 4.89 (3.90-5.60) X10E6/uL Hgb 14.7 14.8 (13.0-17.0) g/dL Hct 43.2 43.3 (38.8-50.0) % Plt Count 181 173 (150-450) x10E3/uL Neut # (Auto) 2.7 2.7 (1.8-7.7) x10E3/uL Lymph # (Auto) 1.8 1.9 (1.00-4.8) x10E3/uL Mingo # (Auto) 0.7 0.6 (0.0-0.8) x10E3/uL Eos # (Auto) 0.8 H 0.8 H (0.0-0.45) x10E3/uL Baso # (Auto) 0.0 0.0 (0.0-0.2) x10E3/uL Comprehensive Metabolic Panel 01/16/24 Range/Units 11:15 Sodium 140 (136-145) mmol/L Potassium 4.2 (3.5-5.1) mmol/L Chloride 106 (98-107) mmol/L Carbon Dioxide 29.6 (21.0-31.0) mmol/L BUN 22 (7-25) mg/dL Creatinine 0.98 (0.70-1.30) mg/dL Glucose 94 (70-100) mg/dL Calcium 9.3 (8.6-10.3) mg/dL Intake and Output 01/16/24 01/17/24 01/17/24 23:59 07:59 15:59 Intake Total 150 / 150 Balance 150 / 150 Intake: Oral 150 / 150 Other: # Unmeasured Voids 3 # Bowel Movements 1 Weight 82.4 kg 82.5 kg Date of Last Bowel Movement 01/16/24 01/16/24 Patient Weight 01/17/24 23:59 Weight 82.5 kg Lab 01/16/24 01/16/24 01/17/24 11:15 21:23 04:21 PT 13.2 H 13.8 H 13.9 H INR 1.1 1.2 1.2 APTT 30.5 53.3 H 74.1 H EKG Interpretations EKG Attestation EKG: I reviewed this ECG and interpreted as documented below: (Normal sinus rhythm without acute ST-T changes) A&P - Cardiology (1) Acute non-ST segment elevation myocardial infarction: Code(s): I21.4 - Non-ST elevation (NSTEMI) myocardial infarction Plan Assessment 1. Acute coronary syndrome. Peak troponin close to 650. With previous historyof PCI's to the mid LAD and distal RCA. Contributing element could be recent discontinuation of aspirin in anticipation of elective screening colonoscopy 2. Hyperlipidemia 3. Mildly overweight Plan 1. Standard therapy for acute coronary syndrome including aspirin, IV heparin, beta-blockers and continue home medication 2. Will proceed with cardiac catheterization in a.m. Risk, benefits alternatives reviewed with patient at great length he understood and agreed Documented By: Brennon Geller MD 01/17/24 1146 Signed By: <Electronically signed by MD Brennon Geller> 01/17/24 1202 [facility] Work Phone: 1([phone]) 573-722507-21-2024 Progress note Author Roby Reinoso [facility] January 17, 2024 11:16am Note Date/Time January 17, 2024 11:1 6am [facility] [address] [place] [address] Hospitalist Progress Note Signed Patient: Jace Mata MR#: [id number] : 1960 Acct:[id number] Age/Sex: 63 / M Adm Date: 4 Loc: Room: [address] [place] [address] Type: ADM IN Attending Dr: Roby Reinoso MD Copies to: ~ Date of Service: 01/17/2024 Subjective Subjective Narrative: Patient examined at bedside with in the room. No overnight event and denies further chest pain. Did not get much sleep due to being in the hospital with heparin drip. Discussed with Dr. Geller with plan for cardiac catheterization tomorrow. Troponin peaked to 907.3 Exam Physical Exam Vital Signs: Temp Pulse Resp BP Pulse Ox O2 Del Method 98.0 F 60 18 134/80 98 Room Air 01/17/24 08:59 01/17/24 08:59 01/17/24 08:59 01/17/24 08:59 01/17/24 08:59 01/17/24 08:59 Const Orientation: alert, awake and oriented x3 Resp Effort & Inspection: normal respiratory effort and able to speak in complete sentences Auscultation: no rales, no rhonchi and no wheezes Cardio Rate: regular rate Rhythm: regular rhythm Heart Sounds: S1 normal and S2 normal GI Palpation: soft, not firm, no guarding and nontender Neuro General: patient alert, patient awake, patient oriented x3, moves all extremities, no focal motor deficits and CN's II-XI intact bilaterally Cognition: normal cognition Speech: speech normal Motor: muscle tone normal throughout and strength 5/5 throughout Sensory Exam: no sensory deficits noted Extrem General: no clubbing, cyanosis or edema and no calf tenderness Objective Lab Results 01/17/24 04:21 01/16/24 11:15 Meds Allergies and Active Meds Allergies No Known Allergies Allergy (Verified 01/16/24 10:36) Active Meds: Active Medications Generic Name Dose Route Start Last Admin Trade Name Ktq PRN Reason Stop Dose Admin Acetaminophen 650 mg 01/16/24 18:24 Acetaminophen 325 Mg Tablet PO 01/15/25 18:23 Q6HR PRN Pain Scale 1 - 3 or fever Albuterol 1 puff 01/16/24 18:26 Albuterol Hfa 60 Puff/8 Gram Inhaler INHALATION 01/15/25 18:25 QID PRN Dyspnea Aspirin 81 mg 01/17/24 09:00 01/17/24 09:34 Aspirin 81 Mg Tab.Chew PO 01/16/25 08:59 81 mg DAILY LORENA Administration Atorvastatin Calcium 10 mg 01/16/24 22:00 01/16/24 22:01 Atorvastatin 10 Mg Tablet PO 01/15/25 21:59 10 mg QHS LORENA Administration Heparin Sodium (Porcine) 3,300 unit 01/16/24 16:44 01/16/24 23:52 Heparin *Protocol Bolus* 5,000 Unit/Ml Vial 40 unit/kg (3300 unit) 01/15/25 16:43 3,300 unit IV-PUSH Administration PROTOCOL PRN PTT 40-53 Heparin Sodium (Porcine) 4,000 unit 01/16/24 16:44 Heparin *Protocol Bolus* 5,000 Unit/Ml Vial IV-PUSH 01/15/25 16:43 PROTOCOL PRN PTT < 40 Hydralazine HCl 10 mg 01/16/24 18:24 Hydralazine 20 Mg/Ml Vial IV-PUSH 01/15/25 18:23 Q4H PRN Hypertension Heparin Sodium/Sodium Chloride 25,000 unit in 250 mls @ 10 mls/hr 01/16/24 16:48 01/16/24 23:56 Heparin IV 01/15/25 16:44 1,200 units/hr .Q24H LORENA 12 mls/hr Titration Protocol 1,000 UNITS/HR Lisinopril 10 mg 01/16/24 22:00 01/16/24 22:01 Lisinopril 10 Mg Tablet PO 01/15/25 21:59 10 mg QHS LORENA Administration Metoprolol Tartrate 12.5 mg 01/16/24 21:00 01/17/24 09:34 Metoprolol Tartrate 12.5 Mg Tablet PO 01/15/25 20:59 12.5 mg BID LORENA Administration Morphine Sulfate 2 mg 01/16/24 18:24 Morphine Sulfate 2 Mg/Ml Vial IV-PUSH Q4H PRN Pain Scale 8 - 10 Nitroglycerin 0.4 mg 01/16/24 18:26 Nitroglycerin 0.4 Mg Tab.Subl SUBLINGUAL 01/15/25 18:25 Q5MIN.X3 PRN Chest Pain Sodium Chloride 0 ml 01/16/24 10:35 Sodium Chloride 0.9 % 10 Ml Syringe IV-PUSH 01/15/25 10:34 PRN PRN Flush A&P - Hospitalist Assessment/Plan (1) Acute non-ST segment elevation myocardial infarction: Plan Continue heparin drip, aspirin and beta-melissa for treatment of non-STEMI. He denies further chest pain. Troponin peaked to 907.3. Patient was recently taken of aspirin on Thursday for colonoscopy. Case discussed with Dr. Geller with plan for cardiac catheterization tomorrow. Blood pressure well-controlled. Continue lisinopril, metoprolol, aspirin and statin. His recent echocardiogram done on 01/14/2024 showed preserved ejection fraction with normal LV function. Case discussed with patient and his at bedside regarding planfor cardiac catheterization and he agrees. Documented By: Roby Reinoso MD 01/17/241111 Signed By: <Electronically signed by Roby Reinoso MD> 01/17/24 1116 [facility] Work Phone: 1(977) 852-330707-20-2024 History and physical note Author Roby Reinoso [facility] January 16, 2024 6:28pm Note Date/Time January 16, 2024 6:13 pm [facility] [address] [place] [address] Hospitalist H&P Signed with Addenda Patient: Jace Mata MR#: [id number] : 1960 Acct:[id number] Age/Sex: 63 / M Adm Date: 4 Loc: 4 Room: [address] [place] [address] Type: ADM IN Attending Dr: Rboy Reinoso MD Copies to: MD Armond Serra DO~ ADDENDUM1 Patient also mentioned his ASA has been placed on hold since Thursday due to scheduled colonoscopy. Addendum Documented By: Roby Reinoso MD 01/16/241827 Addendum Signed By: <Electronically signed by Roby Reinoso MD> 01/16/241827 HPI DATE OF EXAMINATION: 01/16/24 CHIEF COMPLAINT: Chest discomfort HISTORY OF PRESENT ILLNESS: Patient is a pleasant 63-year-old male with past medical history of coronary disease status post PCI to LAD and mid PLV 09/17 and remote history of atrial fibrillation status post ablation. Patient is a longtime cyclist and rides almost 100 miles a week. Earlier today he was riding his bike with plan to 40 miles not having chest discomfort at 25 miles. Denies having chest pain but felt chest discomfort which was similar presentation when he had MRI 2 years ago. He denies recent infection, fever, chills, chest pain, exertional dyspnea or shortness of breath. He has been active and denies any recent change in medications as well. He was taken off prasugrel 6 months after AK and follows with Dr. Koo. In the emergency room his labs showed troponin of 146.2 has increased from 16.6 initially. On examination denies having chest pain or shortness of breath. Patient has been started on heparin drip and will be admitted for further management. Review of Systems Review of Systems All other systems reviewed & are negative unless noted below or in HPI [facility] Surgical History (Updated 01/16/24 @ 11:35 by Afsaneh Zaidi RN) Stented coronary artery x2 S/P hernia surgery Problem List clean-up per request of Phys. EHR Cmte History of cardiac radiofrequency ablation Problem List clean-up per request of Phys. EHR Cmte Family History Father Myocardial infarct Hx of CABG Esophageal cancer Mother Breast cancer Hypertension Social History Smoking Status: Never smoker Substance Use Type: None Substance Abuse Comment: occasional Meds Medications and Allergies Allergies No Known Allergies Allergy (Verified 01/16/24 10:36) Home Medications albuterol sulfate 90 mcg/actuation aerosol inhaler 1 puff inhalation QID PRN Dyspnea 09/09/21 [History Confirmed 01/16/24] cholecalciferol (vitamin D3) 100 mcg (4,000 unit) capsule 100 mcg PO DAILY 09/09/21 [History Confirmed 01/16/24] ferrous sulfate 325 mg (65 mg iron) tablet (iron) 325 mg PO DAILY 09/09/21 [History Confirmed 01/16/24] omega-3 fatty acids 300 mg capsule 1,500 mg PO DAILY 09/09/21 [History Confirmed 01/16/24] aspirin 81 mg chewable tablet (Children's Aspirin) 81 mg PO DAILY #0 tabs 09/10/21 [Rx Confirmed 01/16/24] coenzyme Q10 100 mg capsule (CoQ-10) 300 mg (3 x 100 mg) PO DAILY 30 days #90 caps 09/10/21 [Rx Confirmed 01/16/24] metoprolol tartrate 25 mg tablet 12.5 mg (1/2 x 25 mg) PO BID 30 days #30 tabs 09/10/21 [Rx Confirmed 01/16/24] nitroglycerin 0.4 mg sublingual tablet 0.4 mg sublingual Q5M PRN Chest Pain 30 days #25 tabs 09/10/21 [Rx Confirmed 01/16/24] prasugrel 10 mg tablet (Effient) 10 mg PO DAILY 30 days #30 tabs 09/10/21 [Rx Confirmed 01/16/24] ramipril 2.5 mg capsule 2.5 mg PO QHS 30 days #30 caps 09/10/21 [Rx Confirmed 01/16/24] rosuvastatin 5 mg tablet 5 mg PO QHS 30 days #30 tabs 09/10/21 [Rx Confirmed 01/16/24] Exam Physical Exam Vital Signs: Temp Pulse Resp BP Pulse Ox O2 Del Method 97.7 F 70 18 137/75 96 Room Air 01/16/24 10:37 01/16/24 17:38 01/16/24 17:38 01/16/24 17:38 01/16/24 17:38 01/16/24 17:38 Const Orientation: alert, awake and oriented x3 HEENT Head: normal to inspection, no palpable skull fracture, normocephalic and atraumatic Eyes Pupils: PERRL EOM: EOM intact bilaterally and No nystagmus Neck Neck: normal visual inspection Resp Effort & Inspection: normal respiratory effort and able to speak in complete sentences Auscultation: no rales, no rhonchi and no wheezes Cardio Rate: regular rate Rhythm: regular rhythm Heart Sounds: S1 normal and S2 normal GI Palpation: soft, not firm, no guarding and nontender Neuro General: patient alert, patient awake, patient oriented x3, moves all extremities, no focal motor deficits and CN's II-XI intact bilaterally Cognition: normal cognition Speech: speech normal Motor: muscle tone normal throughout and strength 5/5 throughout Sensory Exam: no sensory deficits noted Extrem General: no clubbing, cyanosis or edema and no calf tenderness Results - Hospitalist H&P Lab Results Labs: Laboratory Last Values Corrected WBC 7.5 X10E3/uL (4.1-10.5) 01/16/24 11:15 Uncorrected WBC Count 7.5 x10E3/uL (4.1-10.5) 01/16/24 11:15 RBC 5.05 X10E6/uL (3.90-5.60) 01/16/24 11:15 Hgb 15.5 g/dL (13.0-17.0) 01/16/24 11:15 Hct 45.1 % (38.8-50.0) 01/16/24 11:15 MCV 89.2 fl (83.5-101) 01/16/24 11:15 MCH 30.6 pg (27.5-35.2) 01/16/24 11:15 MCHC 34.3 g/dL (32.5-35.6) 01/16/24 11:15 RDW 13.9 % (12.0-14.8) 01/16/24 11:15 Plt Count 182 x10E3/uL (150-450) 01/16/24 11:15 MPV 8.7 fl (6.6-10.1) 01/16/24 11:15 Neut % (Auto) 74.3 % (.) 01/16/24 11:15 Lymph % (Auto) 12.7 % (.) 01/16/24 11:15 Mingo % (Auto) 8.6 % (.) 01/16/24 11:15 Eos % (Auto) 3.9 % (.) 01/16/24 11:15 Baso % (Auto) 0.5 % (.) 01/16/24 11:15 Nucleat RBC Rel Count 0.1 /100 WBC (0-0.5) 01/16/24 11:15 Neut # (Auto) 5.6 x10E3/uL (1.8-7.7) 01/16/24 11:15 Lymph # (Auto) 1.0 x10E3/uL (1.00-4.8) 01/16/24 11:15 Mingo # (Auto) 0.6 x10E3/uL (0.0-0.8) 01/16/24 11:15 Eos # (Auto) 0.3 x10E3/uL (0.0-0.45) 01/16/24 11:15 Baso # (Auto) 0.0 x10E3/uL (0.0-0.2) 01/16/24 11:15 Monocyte Dist Width 15.19 % (0.00-20.00) 01/16/24 11:15 PT 13.2 Seconds (9.0-12.9) H 01/16/24 11:15 INR 1.1 01/16/24 11:15 APTT 30.5 Seconds (25.1-36.5) 01/16/24 11:15 PHA Creatinine Clear 77.59 01/16/24 11:15 Sodium 140 mmol/L (136-145) 01/16/24 11:15 Potassium 4.2 mmol/L (3.5-5.1) 01/16/24 11:15 Chloride 106 mmol/L (98-107) 01/16/24 11:15 Carbon Dioxide 29.6 mmol/L (21.0-31.0) 01/16/24 11:15 Anion Gap 8.6 mEq/L (6.0-15.0) 01/16/24 11:15 BUN 22 mg/dL (7-25) 01/16/24 11:15 Creatinine 0.98 mg/dL (0.70-1.30) 01/16/24 11:15 Est GFR (CKD-EPI) > 60.0 mL/Min 01/16/24 11:15 Glucose 94 mg/dL (70-100) 01/16/24 11:15 Calcium 9.3 mg/dL (8.6-10.3) 01/16/24 11:15 Total Creatine Kinase 150 U/L (30-223) 01/16/24 11:15 Troponin I High Sens 146.2 pg/mL (0.0-20.0) H* 01/16/24 14:30 Assessment & Plan Assessment/Plan (1) Acute non-ST segment elevation myocardial infarction: Plan Patient history of coronary disease status post 2 PCI in 2021 presented to ER with complaint of chest discomfort while riding bike. In the ER his labs showing elevated troponin given history patient will be admitted for non-STEMI. Will consult cardiology. Continue heparin drip. Given his presentation and history will load him with Prasugrel and continue ASA. Continue beta melissa andstatin. IP vs OBS Justification Based on differential dx, clinical care plan, and risk of adverse events, if untreated, in my clinical judgement this patient requires an acute care setting as: INPATIENT because of an expectation of an over 2 midnight stay. Estimated length of stay (# of days): 3 Documented By: Roby Reinoso MD 01/16/241811 Signed By: <Electronically signed by Roby Reinoso MD> 01/16/241823 [facility] Work Phone: 1(392) 443-571502-07-2024 History of Present illness Narrative* Dread Koo, DO - 08/05/2023 3:00 PM EST Subjective Jace Mata is a 63 y.o. male Chief Complaint Follow-up 63-year-old gentleman here for preoperative risk assessment clearance prior to inguinal hernia surgery. He has been holding off on this for over a year due to his revascularization of the LAD that occurred in 2021 necessitating 1 years worth of DAPT through 2022. He has done well since that time hehas had no recurrent cardiovascular events or angina [...] PCI of the LAD for non-ST elevation AK in August 2021 with an overall excellent clinical result and angiographic result with persistent clinical stability. His overall risk for cardiovascular events is low, less than 1%. He can come off his aspirin for 5 to 10 days prior to his surgical intervention, reinitiate [id number] daily thereafterwards when bleeding risks are minimized, [...] mouth once daily., Disp: , Rfl: coenzyme H29-[id number] E 100-5 mg-unit capsule, Take 3 capsules [...] minutes if needed., Disp: , Rfl: omega 4-tkb-nuh-fish oil 300 mg-100 mg- 150 mg-1,000 mg capsule, Take by mouth once daily., Disp: ,Rfl: ramipril (Altace) 2.5 mg capsule, Take 1 capsule (2.5 mg) by mouth once daily., Disp: , Rfl: rosuvastatin (Crestor) 5 mg tablet, Take 1 tablet (5 mg) by mouth once daily at bedtime., Disp: , Rfl: Assessment/Plan 1. Coronary artery disease involving tuscarora coronary artery of tuscarora heart without angina pectoris 2. Mixed hyperlipidemia 3. Paroxysmal atrial fibrillation (CMS/HCC) 4. Pre-operative cardiovascular examination 5. Never smoked cigarettes Scribe Attestation By signing my name below, IInge RN , Scribe attest that this documentation has been prepared under the direction and in the presence of Kandice Koo DO. documented in [facility] encounterGerman [facility] Work Phone: 1(532) 275-977802-07-2024 Instructions* Patient Instructions* Debora Chaparro LPN - 08/05/2023 3:00 PM [...] time of your visit. documented in this encounterGerman Hospital Work Phone: 1(781) 922-752101-16-2024 NoteChief Complaint consultation for inguinal hernia HPI Staff [...] angioplasty/stent 2 years ago, paroxysmal atrial fibrillation, treatedwith catheter ablation, DVT, hyperlipidemia, referred for left inguinal bulge; noticed 2 years ago,some increase in size; reducible; no N/V or [...] swallowing difficulties, no hearing loss, no ear infection(s),no nose bleeds. Cardiovascular: normal blood pressure, no [...] per anesthesia SCDs patient to see his Kardex Clerk early July, will obtain Cardiac clearance. Follow-up [...] 07/14/2023 Family History Esopha (more content not included)...[facility] HospitalComment [facility]:Result Comment: Electronically Signed By: DALE AWAN, Moon Mckeon\Date and Time Signed: 07/14/23 15:58 [id number] Evaluation note* Encounter Date Diagnosis Assessment Notes Treatment Notes Treatment Clinical Notes Nov, Contact dermatitis due to poison [...] appearance. Patient verbalized understanding of treatment plan. [facility] Other 06-14-2023 Evaluation note* Encounter Date Diagnosis [...] no improvement in 2 to 3 days. [facility] Other 12-30-2022 NoteHNO ID: [id number] Author: Adrian Cramer APRN.[employer] Service: ? Author Type: Nurse Practitioner Type: Progress Notes Filed: 06/27/2022 10:08 AM Note Text: Patient actually Jace's , explained I am not able to assist her because I am in his chart. Recommended she log out and back in using her information and email.[facility]12-30-2022 History of Present illness Narrative* Adrian Cramer APRN.[employer] - 06/27/2022 10:05 AM EST Patient actually Jace's , explained I am not able to assist her because I am in his chart. Recommended she log out and back in using her information and email. documented in this encounterK[facility] Centeraluation + Plan note No data available for this section General Surgery [place] Evaluation + Plan note Future Appointments Appointment Date:09/01/2023 02:40:00 PM Scheduled Provider:Moon HUNTER MD Location:[facility] Appointment Type: Post Op 15 General Surgery [place] evaluation note* Diagnosis Treatment not available- Primary Procedure not carried out for other reasons documented [facility] encounter [facility]* Diagnosis Coronary artery disease involving tuscarora coronary artery of tuscarora heart without angina pectoris- Primary Mixed hyperlipidemia Paroxysmal atrial fibrillation (CMS/HCC) Atrial fibrillation Pre-operative cardiovascular examination Never smoked cigarettes documented in this encounter [facility] Work Phone: evaluation noteNo assessment information available [facility] Work Phone: evaluation note* Diagnosis Onset Date Resolution Status Acute non-ST segment elevation myocardial infarction acute [facility] Work Phone: evaluation note* Diagnosis Onset Date Resolution Status Acute non-ST segment elevation myocardial infarction acute Stented coronary artery acut e [facility] Work Phone: evaluation note* Diagnosis Onset Date Resolution Status Acute non-ST segment elevation myocardial infarction resolved Contact with and (suspected) exposure to covid-19 noneactive [facility] Work Phone: evaluation note* Diagnosis Allergic rhinitis, unspecified seasonality, unspecified trigger documented in this encounter [facility] and physical note Author Roby Reinoso [facility] January 16, 2024 6:28pm Note Date/Time January 16, 2024 6:13 pm [facility] [address] [place] [address] Hospitalist H&P Signed with Clover Patient: Jace Mata MR#: [id number] : 1960 Acct:[id number] Age/Sex: 63 / M Adm Date: 4 Loc: 4P Room: 3X4369-3 Type: ADM IN Attending Dr: Roby Reinoso MD Copies to: Roby Reinoso MD Armond Baxter DO~ ADDENDUM1 Patient also mentioned his ASA has been placed on hold since Thursday due to scheduled colonoscopy. Addendum Documented By: Roby Reinoso MD 01/16/241827 Addendum Signed By: <Electronically signed by Roby Reinoso MD> 01/16/241827 HPI DATE OF EXAMINATION: 01/16/24 CHIEF COMPLAINT: Chest discomfort HISTORY OF PRESENT ILLNESS: Patient is a pleasant 63-year-old male with past medical history of coronary disease status post PCI to LAD and mid PLV 09/17 and remote history of atrial fibrillation status post ablation. Patient is a longtime cyclist and rides almost 100 miles a week. Earlier today he was riding his bike with plan to 40 miles not having chest discomfort at 25 miles. Denies having chest pain but felt chest discomfort which was similar presentation when he had MRI 2 years ago. He denies recent infection, fever, chills, chest pain, exertional dyspnea or shortness of breath. He has been active and denies any recent change in medications as well. He was taken off prasugrel 6 months after AK and follows with Dr. Koo. In the emergency room his labs showed troponin of 146.2 has increased from 16.6 initially. On examination denies having chest pain or shortness of breath. Patient has been started on heparin drip and will be admitted for further management. Review of Systems Review of Systems All other systems reviewed & are negative unless noted below or in HPI [facility] Surgical History (Updated 01/16/24 @ 11:35 by Afsaneh Zaidi RN) Stented coronary artery x2 S/P hernia surgery Problem List clean-up per request of Phys. EHR Cmte History of cardiac radiofrequency ablation Problem List clean-up per request of Phys. EHR Cmte Family History Father Myocardial infarct Hx of CABG Esophageal cancer Mother Breast cancer Hypertension Social History Smoking Status: Never smoker Substance Use Type: None Substance Abuse Comment: occasional Meds Medications and Allergies Allergies No Known Allergies Allergy (Verified 01/16/24 10:36) Home Medications albuterol sulfate 90 mcg/actuation aerosol inhaler 1 puff inhalation QID PRN Dyspnea 09/09/21 [History Confirmed 01/16/24] cholecalciferol (vitamin D3) 100 mcg (4,000 unit) capsule 100 mcg PO DAILY 09/09/21 [History Confirmed 01/16/24] ferrous sulfate 325 mg (65 mg iron) tablet (iron) 325 mg PO DAILY 09/09/21 [History Confirmed 01/16/24] omega-3 fatty acids 300 mg capsule 1,500 mg PO DAILY 09/09/21 [History Confirmed 01/16/24] aspirin 81 mg chewable tablet (Children's Aspirin) 81 mg PO DAILY #0 tabs 09/10/21 [Rx Confirmed 01/16/24] coenzyme Q10 100 mg capsule (CoQ-10) 300 mg (3 x 100 mg) PO DAILY 30 days #90 caps 09/10/21 [Rx Confirmed 01/16/24] metoprolol tartrate 25 mg tablet 12.5 mg (1/2 x 25 mg) PO BID 30 days #30 tabs 09/10/21 [Rx Confirmed 01/16/24] nitroglycerin 0.4 mg sublingual tablet 0.4 mg sublingual Q5M PRN Chest Pain 30 days #25 tabs 09/10/21 [Rx Confirmed 01/16/24] prasugrel 10 mg tablet (Effient) 10 mg PO DAILY 30 days #30 tabs 09/10/21 [Rx Confirmed 01/16/24] ramipril 2.5 mg capsule 2.5 mg PO QHS 30 days #30 caps 09/10/21 [Rx Confirmed 01/16/24] rosuvastatin 5 mg tablet 5 mg PO QHS 30 days #30 tabs 09/10/21 [Rx Confirmed 01/16/24] Exam Physical Exam Vital Signs: Temp Pulse Resp BP Pulse Ox O2 Del Method 97.7 F 70 18 137/75 96 Room Air 01/16/24 10:37 01/16/24 17:38 01/16/24 17:38 01/16/24 17:38 01/16/24 17:38 01/16/24 17:38 Const Orientation: alert, awake and oriented x3 HEENT Head: normal to inspection, no palpable skull fracture, normocephalic and atraumatic Eyes Pupils: PERRL EOM: EOM intact bilaterally and No nystagmus Neck Neck: normal visual inspection Resp Effort & Inspection: normal respiratory effort and able to speak in complete sentences Auscultation: no rales, no rhonchi and no wheezes Cardio Rate: regular rate Rhythm: regular rhythm Heart Sounds: S1 normal and S2 normal GI Palpation: soft, not firm, no guarding and nontender Neuro General: patient alert, patient awake, patient oriented x3, moves all extremities, no focal motor deficits and CN's II-XI intact bilaterally Cognition: normal cognition Speech: speech normal Motor: muscle tone normal throughout and strength 5/5 throughout Sensory Exam: no sensory deficits noted Extrem General: no clubbing, cyanosis or edema and no calf tenderness Results - Hospitalist H&P Lab Results Labs: Laboratory Last Values Corrected WBC 7.5 X10E3/uL (4.1-10.5) 01/16/24 11:15 Uncorrected WBC Count 7.5 x10E3/uL (4.1-10.5) 01/16/24 11:15 RBC 5.05 X10E6/uL (3.90-5.60) 01/16/24 11:15 Hgb 15.5 g/dL (13.0-17.0) 01/16/24 11:15 Hct 45.1 % (38.8-50.0) 01/16/24 11:15 MCV 89.2 fl (83.5-101) 01/16/24 11:15 MCH 30.6 pg (27.5-35.2) 01/16/24 11:15 MCHC 34.3 g/dL (32.5-35.6) 01/16/24 11:15 RDW 13.9 % (12.0-14.8) 01/16/24 11:15 Plt Count 182 x10E3/uL (150-450) 01/16/24 11:15 MPV 8.7 fl (6.6-10.1) 01/16/24 11:15 Neut % (Auto) 74.3 % (.) 01/16/24 11:15 Lymph % (Auto) 12.7 % (.) 01/16/24 11:15 Mingo % (Auto) 8.6 % (.) 01/16/24 11:15 Eos % (Auto) 3.9 % (.) 01/16/24 11:15 Baso % (Auto) 0.5 % (.) 01/16/24 11:15 Nucleat RBC Rel Count 0.1 /100 WBC (0-0.5) 01/16/24 11:15 Neut # (Auto) 5.6 x10E3/uL (1.8-7.7) 01/16/24 11:15 Lymph # (Auto) 1.0 x10E3/uL (1.00-4.8) 01/16/24 11:15 Mingo # (Auto) 0.6 x10E3/uL (0.0-0.8) 01/16/24 11:15 Eos # (Auto) 0.3 x10E3/uL (0.0-0.45) 01/16/24 11:15 Baso # (Auto) 0.0 x10E3/uL (0.0-0.2) 01/16/24 11:15 Monocyte Dist Width 15.19 % (0.00-20.00) 01/16/24 11:15 PT 13.2 Seconds (9.0-12.9) H 01/16/24 11:15 INR 1.1 01/16/24 11:15 APTT 30.5 Seconds (25.1-36.5) 01/16/24 11:15 PHA Creatinine Clear 77.59 01/16/24 11:15 Sodium 140 mmol/L (136-145) 01/16/24 11:15 Potassium 4.2 mmol/L (3.5-5.1) 01/16/24 11:15 Chloride 106 mmol/L (98-107) 01/16/24 11:15 Carbon Dioxide 29.6 mmol/L (21.0-31.0) 01/16/24 11:15 Anion Gap 8.6 mEq/L (6.0-15.0) 01/16/24 11:15 BUN 22 mg/dL (7-25) 01/16/24 11:15 Creatinine 0.98 mg/dL (0.70-1.30) 01/16/24 11:15 Est GFR (CKD-EPI) > 60.0 mL/Min 01/16/24 11:15 Glucose 94 mg/dL (70-100) 01/16/24 11:15 Calcium 9.3 mg/dL (8.6-10.3) 01/16/24 11:15 Total Creatine Kinase 150 U/L (30-223) 01/16/24 11:15 Troponin I High Sens 146.2 pg/mL (0.0-20.0) H* 01/16/24 14:30 Assessment & Plan Assessment/Plan (1) Acute non-ST segment elevation myocardial infarction: Plan Patient history of coronary disease status post 2 PCI in 2021 presented to ER with complaint of chest discomfort while riding bike. In the ER his labs showing elevated troponin given history patient will be admitted for non-STEMI. Will consult cardiology. Continue heparin drip. Given his presentation and history will load him with Prasugrel and continue ASA. Continue beta melissa andstatin. IP vs OBS Justification Based on differential dx, clinical care plan, and risk of adverse events, if untreated, in my clinical judgement this patient requires an acute care setting as: INPATIENT because of an expectation of an over 2 midnight stay. Estimated length of stay (# of days): 3 Documented By: Roby Reinoso MD 01/16/24 181 Signed By: <Electronically signed by Roby Reinoso MD> 01/16/24 1824 [facility] Work Phone: [facility] general Narrative - Reported* Type Description Date Medical History HTN (hypertension) Medical History Hypercholesteremia Medical History AK (mitral incompetence) Surgical History hand surgery Surgical History tonsillectomy and adenoidectomy Surgical History ablasion Surgical History cardiac stent Hospitalization History No know Hospitalization history [facility] Other History general Narrative - Reported* Type Description Date Medical History HTN (hypertension) Medical History Hypercholesteremia Medical History AK (mitral incompetence) Surgical History hand surgery Surgical History tonsillectomy and adenoidectomy Surgical History ablasion Surgical History cardiac stent Hospitalization History No Hospitalization histo ry information [facility] Other History of Present illness Narrative* The [...] medication regimen. He denies medication side effects. 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 1. You were given conscious sedation. Do not operate a vehicle, power tools, make important decisions, or drink alcohol for 24 hours. You might be drowsy or light headed. Return to the Emergency Room if you have trouble breathing, walking or nausea and vomiting. 2. FOR BLEEDING: Apply continuous pressure to the site and call 911. 3. Operative Site Care: Keep the dressing clean and dry. You may change the dressing only if soiled or wet. You may remove the dressing the following morning. You may wash over the puncture site in the shower. If the puncture site is at the wrist no soaking for 3 days. Some bruising or slight swelling may be present. -Signs of infection are redness, warmth, swelling, getting more sore, colored drainage, fever or chills. -Should the arm or leg become cold, numb, blue or white, call the manufacturing mechanic immediately. 4. ACTIVITY: You are advised to go directly home from the hospital. Restrict your activities for the rest of the day. Resume light or normal activities tomorrow. Do not engage in any activity that will stress the puncture site. Avoid heavy lifting (over 15 lbs.), straining or bending at the catheter site for 48 hours after discharge. If the puncture site is at the wrist do not manipulate wrist for 24 hours and no lifting more than 3 lbs for 3 days. 5. DIET:You may eat your regular diet when you desire. 6. MEDICATIONS: Resume your daily prescription schedule. Prescriptions may be sent with you if needed. Use as directed. When taking pain medications, you may experience dizziness or drowsiness. Do not drink alcohol or drive when taking pain medications. 7. If you should experience episodes of angina e.g. chest discomfort, heaviness, tightness, pressure, burning, with or without radiation to the neck, jaws, arms, or back- Use 1 Nitrostat under your tongue every 5-10 minutes, and up to 3 tablets. If no relief- Call 911 and go to the nearest Emergency Room. -Notify the office for recurrent angina, chest pain or other concerns. You may NOT drive yourself home! Follow the medication instructions provided on your discharge. If the dosages and instructions on this sheet differ from the dosage and instructions on the bottle, follow the instructions on the bottle. [facility] is not responsible for incorrect prescription information provided by the patient during their visit. Do not stop your medications without consulting your health care provider. Please take the list with you to your next doctor's appointment.[facility] Work Phone: Progress note No data available for this section General Surgery Jessica Summary Purpose Family History No Family History [...] esophagus: Father(V16.0, Z80.0) Status:Active Tumor: Brother Status:Active Relationship Condition Age at Onset Recorded Date/T stephanie father Myocardial infarction Unknown History of coronary artery bypass surgery Unknown Malignant neoplasm of esophagus Unknown Not Specified Malignant neoplasm of breast Unknown Hypertension Unknown father Malignant neoplasm Unknown Unknown Heart disease Unknown Not Specified Malignant neoplasm Unknown Relationship Condition Age at Onset Recorded Date/T stephanie father Myocardial infarction Unknown History of coronary artery bypass surgery Unknown Malignant neoplasm of esophagus Unknown mother Malignant neoplasm of breast Unknown Hypertension Unknown father Malignant neoplasm Unknown Unknown Heart disease Unknown mother Malignant neoplasm Unknown Advance Directives No Advanced Directives Records Found Advance Directive Response Recorded Date/ Time Advance Directives No September 09 7:41am Advance Directive Response Recorded Date/ Time Advance Directives No September 09 8:41am Chief Complaint * I am doing very well * JACE MATA is being seen for follow-up of a hospitalization for chest pain. * Patient was recently hospitalized at [facility]. The patient was seen in Cardiology consult with subsequent cardiovascular management by [facility] Hospitalization records have been reviewed. * Reason for Cardiology Consultation: ACS * Consulting Kardex Clerk: Dr. Hunt * Cardiovascular testing: cardiac cath [...] will check in 2 months * JACE MATA is being seen for a 4 month follow-up of. * 61-year-old gentleman returns for follow-up and doing very well he has no cardiovascular complaints. He continues riding bicycle 100 miles a week, he alternates this with weight lifting as well. 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 He is totally asymptomatic and amazingly healthy. * He sustained a non-ST elevation AK with primary revascularization of the LAD and PLV branch of the RCA x2 stents performed by Dr. Hunt in August 2021, followed up with nurse practitioner in September and now myself he remains on appropriate guideline directed medical therapies with no untoward side effects and no recurrent hospitalizations * We counseled him on etiology for his AK including elite cycling, family genetics. * Recommendations, follow-up again in 6 months at which point we will consider discontinuation of prasugrel in September, possibly consider discontinuation of rammer Elizabeth given his normal LV function and current low blood pressure at that time Reason for Referral Specialty Diagnoses / Procedures Referred By Tiffany franklin Referred To Contact Diagnoses Coronary artery disease involving tuscarora coronary artery of tuscarora heart without angina pectoris Pre-operative cardiovascular examination Procedures ECG 12 Lead Dread Koo, [address] [facility], [place] [id number] Referral ID Status Reason Start Date Expiration Date V isits Requested Visits Authorized [id number] Authorized 08/05/2023 08/04/2024 1 1 Specialty Diagnoses / Procedures Referred By Contac t Referred To Contact Cardiology Diagnoses Coronary artery disease involving tuscarora coronary artery of tuscarora heart without angina pectoris Procedures Follow Up In Cardiology Dread Koo DO [address] [facility], [place] [address] [place], [place] [id number] Referral ID Status Reason Start Date Expiration Date V isits Requested Visits Authorized [id number] Authorized 08/05/2023 08/04/2024 1 1 Chief Complaint and Reason for Visit Chief Complaint r01.1 chest discomfort Chest congestion, ear pain Reason for Visit Acute non-ST segment elevation myocardial infarction Contact with and (suspected) exposure to covid-19 Chief Complaint r01.1 chest discomfort Reason for Visit Acute non-ST segment elevation myocardial infarction Stented coronary artery Chief Complaint r01.1 chest discomfort Reason for Visit Acute non-ST segment elevation myocardial infarction Chief Complaint r01.1 Additional Source Comments (unrecognized sect ion and content) No Status Records FoundNo Status Records FoundNo Status Records FoundNo Status Records FoundNo Status Records FoundNo Status Records FoundNo Status Records FoundNo Status Records FoundNo Status Records Found INFORMATION SOURCE (unrecogn ized section and content) DATE CREATED AUTHOR 12/17/2017 [facility] DATE CREATED AUTHOR AUTHOR'S ORGANIZ ATION 02/23/2022 [facility] DATE CREATED AUTHOR AUTHOR'S ORGANIZ ATION 06/27/2022 [facility] DATE CREATED AUTHOR AUTHOR'S ORGANIZ ATION 08/19/2022 [facility] DATE CREATED AUTHOR AUTHOR'S ORGANIZ ATION 08/19/2022 [facility] DATE CREATED AUTHOR AUTHOR'S ORGANIZ ATION 09/02/2023 [facility] DATE CREATED AUTHOR AUTHOR'S ORGANIZ ATION 04/09/2024 [facility] DATE CREATED AUTHOR AUTHOR'S ORGANIZ ATION 04/12/2024 [facility] DATE CREATED AUTHOR AUTHOR'S ORGANIZ ATION 05/29/[address] [facility] Ambulatory Source Comments (unrecognize d section and content) In the event this informatio n is protected by the Federal Confidentiality of Alcohol and Drug Abuse Patient Records regulations: The Federal rules restrict any use of the information to criminally investigate or prosecute any alcohol or drug abuse patient.[facility] Reason for Visit (unrecogniz ed section and content) Reason Comments Illness Reason Comments Follow-up 1 year with POC for hernia surgery Patient Care team informatio n (unrecognized section and content) Director Of Architecture Relationship Specialty Start Date End Date Ta HaddadDO PCP - General 10/18/21 Team Status: Active Member Role Status Dates Ta Haddad JR DO Primary Care Provider Active Team Status: Inactive Member Role Status Dates Ta Haddad JR DO Primary Care Provider Active Start: August 12, 2023 End: August 12, 2023 Moon Hunter MD FACS Attending Provider Active Start: August 12, 2023 End: August 12, 2023 Team Status: Active Member Role Status Dates Armond Baxter DO Primary Care Provider Active Team Status: Inactive Member Role Status Dates Armond Baxter DO Primary Care Provi erendira, Attending Provider Active Start: January 14, 2024 End: January 14, 2024 Team Status: Active Member Role Status Dates Armond Baxter DO Primary Care Provider Active Start: January 16, 2024 Moon Mcwilliams MD Emergency Provider Active St art: January 16, 2024 Prudencio Tompkins DO RES Active St art: January 16, 2024 Roby Reinoso MD Admit Provider, Atte nding Provider Active Start: January 16, 2024 Team Status: Inactive Member Role Status Dates Armond Baxter DO Primary Care Provider Active Start: January 16, 2024 End: January 18, 2024 Moon Mcwilliams MD Emergency Provider Active St art: January 16, 2024 End: January 18, 2024 Prudencio Tompkins DO RES Active St art: January 16, 2024 End: January 18, 2024 Roby Reinoso MD Admit Provider, Atte nding Provider Active Start: January 16, 2024 End: January 18, 2024 Amara Bell RN Other Provider Active Star t: January 16, 2024 End: January 18, 2024 Fabian Koo DO Other Provider Active Start : January 16, 2024 End: January 18, 2024 Melody Collier MD Other Provider Active Start: January 16, 2024 End: January 18, 2024 Dread Perez MD Other Provider Active Start: January 16, 2024 End: January 18, 2024 Brennon Geller MD Other Provider Active St art: January 16, 2024 End: January 18, 2024 Ta Laird MD Other Provider Active Start: January 16, 2024 End: January 18, 2024 Shruthi Galloway APRN Other Provider Active Start : January 16, 2024 End: January 18, 2024 Jes Tirado MD Other Provider Active Start: 2023 End: January 18, 2024 Jaylon Hernandez MD Other Provider Active Start: January 16, 2024 End: January 18, 2024 John Cleaning MD Other Provider Active Start: Milli ed 2023 End: January 18, 2024 Rosario Ferrer , [facility] Other Provider Active Sta rt: January 16, 2024 End: January 18, 2024 Team Status: Inactive Member Role Status Dates Armond Baxter DO Primary Care Provider Active Start: March 13, 2024 End: March 13, 2024 Rashmi Whitaker APRN Attending Provider Active Start: March 13, 2024 End: March 13, 2024 Director Of Architecture Relationship Specialty Start Date End Date Juan Mcguire MD [address] [facility] [place] [address] (Fax) PCP - [facility] 04/29/23 Armond Baxter DO [address] [facility] [address] [place] [address] PCP - General Family Medicine 12/23/23 Yousuf Koo MD [address] [facility] [address] [place] [address] Referring Physician Cardiology 12/23/23 Renny Cuellar MD [address] [place] [address] Referring Physician Dermatology 12/23/23 Director Of Architecture Relationship Specialty Start Date End Date Juan Mcguire MD [address] [facility] [place] [address] PCP - [facility] 04/29/23 Armond Baxter DO [address] [facility] [address] [place] [address] PCP - General Family Medicine 12/23/23 Yousuf Koo MD [address] [facility] [address] [place] [address] Referring Physician Cardiology 12/23/23 Renny Cuellar MD [address] [facility] [place] [address] Referring Physician Dermatology 12/23/23 Goals (unrecognized section and content) Goals may be documented in a n alternate section FOR RECORDS PERTAINING TO PATIENTS WHO ARE [...] BE BASED ON THE PRIMARY CLINICAL RECORDS. [employer] provides no warranty or guarantee of the accuracy or completeness of information in this document.
[2024-05-31 09:00] VITALS: BP 167/97; PULSE 67; TEMP 35.8; O2SAT 98; BMI 27.9
[2024-05-31] MEDS: 0.9 % SODIUM CHLORIDE 500 ML 50 ML IV (09:23)
[2024-05-31 11:15] VITALS: BP 109/67; PULSE 60; O2SAT 92
[2024-05-31 11:30] VITALS: BP 99/69; PULSE 62; O2SAT 94
[2024-05-31 11:45] VITALS: BP 120/80; PULSE 60; O2SAT 99
--- NOTE | 2024-05-31 12:07 | W.PM.PROCNOT ---
Date of procedure: 05/31/24 Pre-op diagnosis: screen for colon cancer Post-op diagnosis: other (mild sigmoid diverticulosis ) Procedure: Previous colonoscopy: never procedure: screening colonoscopy The patient was given IV conscious sedation.? The patient's SPO2 remained above 90% throughout the procedure. The colonoscope was inserted per rectum and advanced under direct vision to the cecum without difficulty.? The prep was good.? Findings: Terminal ileum os: normal Cecum/Ascending colon: normal Transverse colon: normal Descending/Sigmoid colon: normal aside for mild diverticulosis Rectum/Anus: examined in normal and retroflexed positions and was normal Withdrawal Time was (minutes): 10 The colon was decompressed and the scope was removed.? The patient tolerated the procedure well. Recommendations/Plan: 1.? Lifestyle and dietary modifications as discussed 2.? F/U in 10 years 3.? Discussed with the family Anesthesia: MAC Surgeon: Bishop Hartmann Estimated blood loss (mL): 0 Pathology: none sent Condition: stable Disposition: PACU
== END 2024-05-31 11:45 | disposition home or self-care (01) ==
PROVIDERS: Visit Provider Surgery
PROC: (CPT G0121; principal; 2024-05-31 09:50)
DX: Z12.11 Encounter for screening for malignant neoplasm of colon (principal); K57.30 Diverticulosis of large intestine without perforation or abscess without bleeding; E78.5 Hyperlipidemia, unspecified; I10 Essential (primary) hypertension; Z79.01 Long term (current) use of anticoagulants; I25.10 Atherosclerotic heart disease of native coronary artery without angina pectoris; I25.2 Old myocardial infarction; Z95.5 Presence of coronary angioplasty implant and graft
CPT/HCPCS: G0121; J2704